=== PATIENT | male | born 1960 | race Caucasian/White ===

== ENCOUNTER 2018-11-08 16:13 | Inpatient (IN) | payer OTHER, SELFPAY ==
[2018-11-08 16:19] VITALS: BP 111/75; PULSE 75; RESP 20; TEMP 36.9; O2SAT 91
--- NOTE | 2018-11-08 16:27 | NURSING ---
Pt arrived from [facility] @ 1614 via cart
[2018-11-08 16:51] VITALS: BMI 33.2
[2018-11-08 16:59] VITALS: BMI 33.2
[2018-11-08 18:19] VITALS: BP 111/75; PULSE 75
[2018-11-08] MEDS: Tamsulosin HCl 0.4 MG Capsule PO (18:19)
[2018-11-08] MEDS: Metoprolol Tartrate 25 MG Tablet 12.5 MG PO (18:19)
[2018-11-08] MEDS: Senna/Docusate Sodium 1 Tablet 2 TABLET PO (18:19)
--- NOTE | 2018-11-08 20:58 | PCM.HP.STD ---
Problem List (1) Acute respiratory failure Status: Acute (2) Influenza Status: Acute (3) Pneumonia Status: Acute (4) MRSA (methicillin resistant Staphylococcus aureus) infection Status: Acute (5) ARDS (adult respiratory distress syndrome) Status: Acute (6) Stage III pressure ulcer of sacral region Status: Acute (7) Stage III pressure ulcer of right buttock Status: Acute (8) New onset atrial fibrillation Status: Acute (9) Urinary retention Status: Acute (10) Benign prostatic hyperplasia Status: Chronic (11) Elevated PSA Status: Chronic (12) Obstructive sleep apnea Status: Chronic (13) Anxiety Status: Chronic History of Present Illness Date of Admission: 11/08/18 Chief Complaint: Here for rehabilitation, strengthening, prior to discharge home with spouse. The patient is a 58 year old Male with below past medical history here with followin09/27/2018 Admitted to [facility] for influenza. Transferred to [facility] for more intensive treatment. Diagnosed with influenza, pneumonia, adult respiratory distress syndrome, causing respiratory failure. Intubated, mechanically ventilated, unable to wean ventilator. 10/10/2018 Tracheostomy tube placement. 10/23/2018 Stage 3 sacral and right buttock ulcers debrided by wound physician. 11/05/2018 Tracheostomy decannulated. New onset atrial fibrillation resolved, now in sinus rhythm. MRSA respiratory infection treated with full course of Linezolid. Anxiety treated with home dose of Trazodone. Patient still anxious. 11/06/2018 BPH with urinary retention requiring indwelling nunn catheter. Tamsulosin 0.4MG added to Finasteride 5MG daily. Patient states Tamsulosin 0.4MG not helpful in the past. Admit to TCU with debility, here for rehabilitation, strengthening, prior to discharge home with spouse. Past Medical History Past Medical History (Chronic Problems): Chronic Problems Benign prostatic hyperplasia (Chronic) Elevated PSA (Chronic) Obstructive sleep apnea (Chronic) Anxiety (Chronic) Allergies vancomycin Allergy (Verified 11/08/18 16:43) Unknown Home Medications: Ambulatory Orders Medication Instructions Recorded Finasteride 5 mg PO DAILY 11/08/18 Heparin Injection 5,000 units SC Q8 11/08/18 Metoprolol Tartrate [Lopressor 12.5 mg PO BID 11/08/18 (Beta [place]o)] Sennosides/Docusate Sodium 2 tab PO BID 11/08/18 [Docusate Sodium-Senna Tablet] Tamsulosin HCl [Flomax] 0.4 mg PO DAILY@1730 11/08/18 traZODone [Desyrel] 50 mg PO QHS 11/08/18 Surgical History: rotator cuff repair, - - Tracheostomy, septum frontal sinuses. Psychiatric History: Anxiety Lives: Spouse/ Significant Other Smoking Status: Former smoker Tobacco Use: Non-smoker Alcohol: None Drugs: None - *Family History Maternal History Items: No pertinent history Paternal History Items: No pertinent history Review of Systems Constitutional: Denies: Chills, Fever, Weight Change HEENT: Denies: Head Aches, Sinus Congestion, Sinus Drainage Cardiovascular: Denies: Chest Pain, Palpitations Respiratory: Denies: Cough, Shortness of breath at rest, Sputum production Gastrointestinal: Denies: Abdominal Pain, Nausea, Vomiting Genitourinary: Denies: Dysuria Musculoskeletal: Denies: Joint Pain, Joint Tenderness Skin: Reports: Wounds. Denies: Rash Neurological: Denies: Numbness, Tingling, Focal weakness Psychiatric: Reports: Anxiety. Denies: Depression, Homicidal Ideations, Suicidal Ideations Hematologic/ Lymphatic: Denies: Easy Bruising, Easy Bleeding VTE Information - Inpt Only VTE Present on Admission: No VTE Mechan Device Prophylaxis: Knee High KILO Hose VTE Pharm Prophylaxis ordered?: Yes Patient Problems: Active and Suspected Problems Acute respiratory failure (Acute) Influenza (Acute) Pneumonia (Acute) MRSA (methicillin resistant Staphylococcus aureus) infection (Acute) ARDS (adult respiratory distress syndrome) (Acute) Stage III pressure ulcer of sacral region (Acute) Stage III pressure ulcer of right buttock (Acute) New onset atrial fibrillation (Acute) Urinary retention (Acute) - Physical Exam General: Alert, Oriented x3, Cooperative HEENT: Atraumatic, PERRLA, EOMI, Normocephalic Neck: Supple, No JVD, Negative Carotid Bruits Lungs: Clear to auscultation, Normal air movement Cardiovascular: Regular rate, No murmurs Abdomen: Bowel Sounds Present, Soft, Non Tender Extremities: No edema, Capillary Refill Less than 3 Seconds Skin: No rashes, Ulcer/ Wound - Stage 3 sacral ulcer, Stage 3 right buttock ulcer (wound nurse) Musculoskeletal: No Tenderness to Palpation of Joints or Extremities Neurological: Cranial nerves II-XII grossly intact Psych/Mental Status: Normal Affect, Appropriate Vital Signs Temp Pulse Resp BP Pulse Ox 98.5 F 75 20 H 111/75 91 11/08/18 16:19 11/08/18 18:19 11/08/18 16:19 11/08/18 18:19 11/08/18 16:19 Oxygen Delivery Method Room Air Weight: 120.65 kg Body Mass Index (BMI) 33.2 Intake and Output for Last 24 Hours 11/06/18 11/07/18 11/08/18 23:59 23:59 23:59 Intake Total 120 / 120 Balance 120 / 120 Assessment/Plan All Active Problems Acute respiratory failure (Acute) Influenza (Acute) Pneumonia (Acute) MRSA (methicillin resistant Staphylococcus aureus) infection (Acute) ARDS (adult respiratory distress syndrome) (Acute) Stage III pressure ulcer of sacral region (Acute) Stage III pressure ulcer of right buttock (Acute) New onset atrial fibrillation (Acute) Urinary retention (Acute) 58 year old male with below past medical history hospitalized for acute respiratory failure secondary to influenza pneumonia requiring mechanical ventilation subsequent tracheostomy, complicated by atrial fibrillation, MRSA sputum, pressure ulcers, BPH with urination, admitted to TCU with debility, here for rehabilitation, strengthening, prior to discharge home with spouse. Debility - PT/OT. Pain - Tylenol 1000MG Q6H PRN mild pain. Bowel - Miralax 17GM daily, Senna/colace 2 tablets BID, Dulcolax 10MG daily PRN. Pneumonia vaccination - Administer Prevnar 13 and/or Pneumovax 23 as necessary, up to date on flushot. DVT prophylaxis - Lovenox 40MG SC daily. Nutrition - Ensure 120ML 4x/day. BPH with urinary retention - Finasteride 5MG daily, Tamsulosin 0.4MG daily, indwelling nunn catheter, consult Dr. Edmondson. Elevated PSA - PSA 8.81 2 years ago, biopsy negative, now on Finasteride, repeat PSA in AM. Dysuria - check UA, C+S. Atrial fibrillation - normal sinus rhythm, Metoprolol 12.5MG twice daily, anticoagulation not indicated. Insomnia - Trazodone 50MG QHS. Anxiety - Consider SSRI to help with symptoms. MRSA sputum - resolved with full course of Linezolid. Stage 3 sacral, Stage 3 right buttock pressure ulcers - consult wound nurse. Obstructive sleep apnea - CPAP at night.
--- NOTE | 2018-11-08 21:01 | HP.PCM_ITS ---
Problem List (1) Acute respiratory failure Status: Acute (2) Influenza Status: Acute (3) Pneumonia Status: Acute (4) MRSA (methicillin resistant Staphylococcus aureus) infection Status: Acute (5) ARDS (adult respiratory distress syndrome) Status: Acute (6) Stage III pressure ulcer of sacral region Status: Acute (7) Stage III pressure ulcer of right buttock Status: Acute (8) New onset atrial fibrillation Status: Acute (9) Urinary retention Status: Acute (10) Benign prostatic hyperplasia Status: Chronic (11) Elevated PSA Status: Chronic (12) Obstructive sleep apnea Status: Chronic (13) Anxiety Status: Chronic History of Present Illness Date of Admission: 11/08/18 Chief Complaint: Here for rehabilitation, strengthening, prior to discharge home with spouse. The patient is a 58 year old Male with below past medical history here with followin09/27/2018 Admitted to [facility] for influenza. Transferred to [facility] for more intensive treatment. Diagnosed with influenza, pneumonia, adult respiratory distress syndrome, causing respiratory failure. Intubated, mechanically ventilated, unable to wean ventilator. 10/10/2018 Tracheostomy tube placement. 10/23/2018 Stage 3 sacral and right buttock ulcers debrided by wound physician. 11/05/2018 Tracheostomy decannulated. New onset atrial fibrillation resolved, now in sinus rhythm. MRSA respiratory infection treated with full course of Linezolid. Anxiety treated with home dose of Trazodone. Patient still anxious. 11/06/2018 BPH with urinary retention requiring indwelling nunn catheter. Tamsulosin 0.4MG added to Finasteride 5MG daily. Patient states Tamsulosin 0.4MG not helpful in the past. Admit to TCU with debility, here for rehabilitation, strengthening, prior to discharge home with spouse. Past Medical History Past Medical History (Chronic Problems): Chronic Problems Benign prostatic hyperplasia (Chronic) Elevated PSA (Chronic) Obstructive sleep apnea (Chronic) Anxiety (Chronic) Allergies vancomycin Allergy (Verified 11/08/18 16:43) Unknown Home Medications: Ambulatory Orders Medication Instructions Recorded Finasteride 5 mg PO DAILY 11/08/18 Heparin Injection 5,000 units SC Q8 11/08/18 Metoprolol Tartrate [Lopressor 12.5 mg PO BID 11/08/18 ([place]eta [place])] Sennosides/Docusate Sodium 2 tab PO BID 11/08/18 [Docusate Sodium-Senna Tablet] Tamsulosin HCl [Flomax] 0.4 mg PO DAILY@1730 11/08/18 traZODone [Desyrel] 50 mg PO QHS 11/08/18 Surgical History: rotator cuff repair, - - Tracheostomy, septum frontal sinuses. Psychiatric History: Anxiety Lives: Spouse/ Significant Other Smoking Status: Former smoker Tobacco Use: Non-smoker Alcohol: None Drugs: None - *Family History Maternal History Items: No pertinent history Paternal History Items: No pertinent history Review of Systems Constitutional: Denies: Chills, Fever, Weight Change HEENT: Denies: Head Aches, Sinus Congestion, Sinus Drainage Cardiovascular: Denies: Chest Pain, Palpitations Respiratory: Denies: Cough, Shortness of breath at rest, Sputum production Gastrointestinal: Denies: Abdominal Pain, Nausea, Vomiting Genitourinary: Denies: Dysuria Musculoskeletal: Denies: Joint Pain, Joint Tenderness Skin: Reports: Wounds. Denies: Rash Neurological: Denies: Numbness, Tingling, Focal weakness Psychiatric: Reports: Anxiety. Denies: Depression, Homicidal Ideations, Suicidal Ideations Hematologic/ Lymphatic: Denies: Easy Bruising, Easy Bleeding VTE Information - Inpt Only VTE Present on Admission: No VTE Mechan Device Prophylaxis: Knee High KILO Hose VTE Pharm Prophylaxis ordered?: Yes Patient Problems: Active and Suspected Problems Acute respiratory failure (Acute) Influenza (Acute) Pneumonia (Acute) MRSA (methicillin resistant Staphylococcus aureus) infection (Acute) ARDS (adult respiratory distress syndrome) (Acute) Stage III pressure ulcer of sacral region (Acute) Stage III pressure ulcer of right buttock (Acute) New onset atrial fibrillation (Acute) Urinary retention (Acute) - Physical Exam General: Alert, Oriented x3, Cooperative HEENT: Atraumatic, PERRLA, EOMI, Normocephalic Neck: Supple, No JVD, Negative Carotid Bruits Lungs: Clear to auscultation, Normal air movement Cardiovascular: Regular rate, No murmurs Abdomen: Bowel Sounds Present, Soft, Non Tender Extremities: No edema, Capillary Refill Less than 3 Seconds Skin: No rashes, Ulcer/ Wound - Stage 3 sacral ulcer, Stage 3 right buttock ulcer (wound nurse) Musculoskeletal: No Tenderness to Palpation of Joints or Extremities Neurological: Cranial nerves II-XII grossly intact Psych/Mental Status: Normal Affect, Appropriate Vital Signs Temp Pulse Resp BP Pulse Ox 98.5 F 75 20 H 111/75 91 11/08/18 16:19 11/08/18 18:19 11/08/18 16:19 11/08/18 18:19 11/08/18 16:19 Oxygen Delivery Method Room Air Weight: 120.65 kg Body Mass Index (BMI) 33.2 Intake and Output for Last 24 Hours 11/06/18 11/07/18 11/08/18 23:59 23:59 23:59 Intake Total 120 / 120 Balance 120 / 120 Assessment/Plan All Active Problems Acute respiratory failure (Acute) Influenza (Acute) Pneumonia (Acute) MRSA (methicillin resistant Staphylococcus aureus) infection (Acute) ARDS (adult respiratory distress syndrome) (Acute) Stage III pressure ulcer of sacral region (Acute) Stage III pressure ulcer of right buttock (Acute) New onset atrial fibrillation (Acute) Urinary retention (Acute) 58 year old male with below past medical history hospitalized for acute respiratory failure secondary to influenza pneumonia requiring mechanical ventilation subsequent tracheostomy, complicated by atrial fibrillation, MRSA sputum, pressure ulcers, BPH with urination, admitted to TCU with debility, here for rehabilitation, strengthening, prior to discharge home with spouse. * Debility - PT/OT. * Pain - Tylenol 1000MG Q6H PRN mild pain. * Bowel - Miralax 17GM daily, Senna/colace 2 tablets BID, Dulcolax 10MG daily PRN. * Pneumonia vaccination - Administer Prevnar 13 and/or Pneumovax 23 as necessary, up to date on flushot. * DVT prophylaxis - Lovenox 40MG SC daily. * Nutrition - Ensure 120ML 4x/day. * BPH with urinary retention - Finasteride 5MG daily, Tamsulosin 0.4MG daily, indwelling nunn catheter, consult Dr. Edmondson. * Elevated PSA - PSA 8.81 2 years ago, biopsy negative, now on Finasteride, repeat PSA in AM. * Dysuria - check UA, C+S. * Atrial fibrillation - normal sinus rhythm, Metoprolol 12.5MG twice daily, anticoagulation not indicated. * Insomnia - Trazodone 50MG QHS. * Anxiety - Consider SSRI to help with symptoms. * MRSA sputum - resolved with full course of Linezolid. * Stage 3 sacral, Stage 3 right buttock pressure ulcers - consult wound nurse. * Obstructive sleep apnea - CPAP at night.
[2018-11-08] MEDS: Heparin Injection (Vial) 5,000 UNIT/ML VIAL 5000 UNIT SC (21:45)
[2018-11-08] MEDS: traZODone 50 MG Tablet PO (21:46)
--- NOTE | 2018-11-08 22:33 | NURSING ---
Pt complaint of burning with urination. Sediment noted in nunn bag with a minimal amount of blood. Foul odor noted to urine. Pt states he informed staff at other hospital but was told to drink more cranberry juice. Dr. Olson updated. Order for UA and C&S.
[2018-11-08 23:06] LABS: Mucous, Urine 0 SEEN /hpf (<or=2+); Squamous Epithelial Cells - UA 0 SEEN /hpf (0-5)
[2018-11-08 23:08] LABS: Color, Urine Yellow (Yellow); Glucose, Dipstick Normal (Normal); Ketone-Dipstick 5 mg/dl (Negative); Leukocyte Esterase-Dipstick 500 /ul (Negative); Nitrite-Dipstick Positive (Negative); Occult Blood-Urine 250 /ul (Negative); Protein-Dipstick 100 mg/dl (Negative); Specific Gravity, Urine 1.025 (1.002-1.030); Urine Bilirubin Dipstick Negative (Negative); Urine Clarity Cloudy (Clear); Urine Urobilinogen Normal (Normal)
[2018-11-08 23:16] LABS: White Blood Cells >100 SEEN /hpf (0-5)
[2018-11-08 23:17] LABS: Red Blood Cells-Urine 10-25 SEEN /hpf (0-5)
[2018-11-08 23:18] LABS: Bacteria RARE /hpf (None Seen)
--- NOTE | 2018-11-09 03:40 | NURSING ---
Pt remains in contact/droplet this shift for MRSA respiratory infection. All care provided in room.
[2018-11-09 08:24] LABS: Absolute Lymphocyte Count 1.59 X10^3/ul (0.83-4.51); Absolute Neutrophil Count 9.3 X10^3/uL (2.0-7.7); Basophil# 0.08 X10^3/uL; Basophil% 0.6 % (0-1); Eosinophils% 4.7 % (0-5); Hematocrit 35.8 % (40-54); Lymphocyte # 1.59 X10^3/ul (4.0); Lymphocyte % 12.6 % (19-41); Mean Corp Hgb Conc 33.5 g/gl (32-36); Mean Corpuscular Hgb 26.3 pg (27.0-32.0); Mean Corpuscular Volume 78.5 fL (80-94); Monocyte# 0.99 X10^3/uL; Monocyte% 7.8 % (0-10); Neutrophil # 9.34 X10^3/uL (2.7-7.7); Neutrophil % 73.9 % (47-70); Platelet Count 321 K/mm3 (150-450); RBC Distribution Width CV 25.5 % (11.6-14.6); RBC Distribution Width SD 66.6 fl (35.1-43.9); Red Blood Count 4.56 M/mm3 (4.6-6.2); White Blood Count 12.7 K/mm3 (4.4-11.0)
[2018-11-09 08:25] LABS: Differential Indicated SCAN CRITERIA MET; POSITIVE COUNT NO; POSITIVE DIFFERENTIAL NO; POSITIVE MORPHOLOGY YES
--- NOTE | 2018-11-09 08:39 | NURSING ---
Dr. Olson reviewed UA, NO for ceftin 500mg PO [id number].
[2018-11-09 08:43] LABS: Anion Gap 7 (5-15); BUN 14 mg/dL (7-18); BUN/Creat Ratio 21.4 RATIO (10-20); Chloride 105 mmol/L (98-107); Creatinine, Serum 0.66 mg/dL (0.70-1.30); EST Glomerular Filtration Rate 132 mL/min (>60); Est Glom Filt Rate - Afr Amer 160 mL/min (>60); Estimated Creatinine Clearance 144.03 ml/min; Glucose 105 mg/dL (74-106); PSA,Total- Diagnostic 4.08 ng/mL (0.0-4.0); Potassium 4.2 mmol/L (3.5-5.1); Sodium Level 135 mmol/L (136-145)
[2018-11-09 08:46] LABS: Anisocytosis 2+
[2018-11-09 08:47] LABS: Hypochromasia 2+; Polychromasia RARE
[2018-11-09 08:48] LABS: Macrocytosis 1+; Microcytosis 1+
[2018-11-09] MEDS: Senna/Docusate Sodium 1 Tablet 2 TABLET PO ×2 (09:24→17:42)
[2018-11-09] MEDS: Polyethylene Glycol 3350 17 GM PACKET PO (09:24)
[2018-11-09] MEDS: Finasteride 5 MG Tablet PO (09:25)
[2018-11-09] MEDS: Enoxaparin 40 MG/0.4 ML Syringe SC (09:25)
[2018-11-09] MEDS: CEFUROXIME AXETIL 250 MG TABLET 500 MG PO ×2 (09:26→17:42)
[2018-11-09 10:00] VITALS: PULSE 68
[2018-11-09] MEDS: Metoprolol Tartrate 25 MG Tablet 12.5 MG PO ×2 (10:00→17:42)
--- NOTE | 2018-11-09 11:45 | NURSING ---
Pt very anxious this morning, states he just feels overwhelmed by everything that has happened to him Very restless and unable to carry on conversation without having to stop taking deep breaths to relax. Very anxious about issue with bladder and prostate. Patient reassured. Dr. Olson notified, NO for paroxetine 10mg PO qHS, ativan 0.5mg po x1 now and then ativan 0.5mg PO [id number] PRN for anxiety. Notify Dr. Olson if ativan dose seems too sedating for patient.
--- NOTE | 2018-11-09 12:25 | RAD_ITS ---
STUDY: X-RAY CHEST REASON FOR EXAM: Male, 58 years old. Cough TECHNIQUE: Single AP portable view of the chest. COMPARISON: None. FINDINGS: Ill-defined airspace opacities are seen in the right lower lobe and left lower lobe suggesting bilateral pneumonia. There is no demonstrated pleural abnormality. Normal size heart. Normal mediastinum and kp. Normal visualized pulmonary arteries. Normal visualized aortic arch and descending thoracic aorta. Normal visualized thoracic spine. There is degenerative osteoarthritis of the bilateral shoulders. There is no demonstrated abnormality of the visualized soft tissue structures of the upper abdomen. RAD/Chest 1 View (Portable) IMPRESSION: Bilateral pneumonia. Electronically Signed: Anita Arce, at 16:14 EDT Tel , Service support ,
[2018-11-09] MEDS: Acetaminophen 500 MG Tablet 1000 MG PO (13:11)
[2018-11-09] MEDS: LORazepam 0.5 MG Tablet PO ×2 (13:13→21:45)
--- NOTE | 2018-11-09 14:10 | NURSING ---
Pt refused TB test and Quant Gold test, has a fear of needles. Denies any night sweats, fevers, chest pain, hemopytsis, lymph node swelling, malaise, weight loss or SOB. Per Dr. Olson and nursing informatics analyst, north to do a CXR to r/o TB.
--- NOTE | 2018-11-09 14:12 | PCM.PN.RX ---
<Kevin Christopher D - Last Filed: 11/09/18 14:12> Progress Note - Pharmacy Subjective: TCU Admission Objective: Allergies vancomycin Allergy (Verified 11/08/18 16:43) Unknown Current Medications Generic Name Dose Route Start Last Admin Trade Name Freq PRN Reason Stop Dose Admin Acetaminophen 1,000 mg 11/08/18 22:38 11/09/18 13:11 Tylenol PO 1,000 mg Q6H PRN PRN Administration MILD PAIN (1-3/10) Bisacodyl 10 mg 11/08/18 22:39 Dulcolax PO DAILY PRN Constipation Cefuroxime Axetil 500 mg 11/09/18 18:00 Ceftin PO 11/16/18 18:01 Q12 [facility] Enoxaparin Sodium 40 mg 11/09/18 07:00 11/09/18 09:25 Lovenox SC 40 mg DAILY@0600 [facility] Administration Finasteride 5 mg 11/09/18 08:00 11/09/18 09:25 Proscar PO 5 mg DAILYCM [facility] Administration Lorazepam 0.5 mg 11/09/18 19:40 Ativan PO Q8H PRN PRN ANXIETY Metoprolol Tartrate 12.5 mg 11/09/18 08:00 11/09/18 10:00 Lopressor ([place]eta [place]) PO 12.5 mg BID@0800,1800 [facility] Administration Multi-Ingredient Cream 1 applic 11/09/18 22:00 [facility] Nutritional Formula (Lactose Free) 120 ml 11/09/18 08:00 11/09/18 11:17 Ensure Enlive PO 120 ml 0800,1200,1700,2200 [facility] Administration Paroxetine HCl 10 mg 11/09/18 22:00 Paxil PO QHS [facility] Polyethylene Glycol 17 gm 11/09/18 08:00 11/09/18 09:24 Miralax PO 17 gm DAILY@0800 [facility] Administration Senna/Docusate Sodium 2 tablet 11/09/18 08:00 11/09/18 09:24 Senokot-S, Nory-Colace PO 2 tablet BID@0800,1800 [facility] Administration Tamsulosin HCl 0.4 mg 11/08/18 17:30 11/08/18 18:19 Flomax PO 0.4 mg DAILY@1730 [facility] Administration Trazodone HCl 50 mg 11/08/18 22:00 11/08/18 21:46 Desyrel PO 50 mg QHS [facility] Administration Tuberculin PPD 5 tu 11/16/18 10:00 Tubersol, Aplisol, Ppd ID 11/16/18 10:01 X1 ONE Problem List Acute respiratory failure (Acute) Influenza (Acute) Pneumonia (Acute) MRSA (methicillin resistant Staphylococcus aureus) infection (Acute) ARDS (adult respiratory distress syndrome) (Acute) Stage III pressure ulcer of sacral region (Acute) Stage III pressure ulcer of right buttock (Acute) New onset atrial fibrillation (Acute) Urinary retention (Acute) Benign prostatic hyperplasia (Chronic) Elevated PSA (Chronic) Obstructive sleep apnea (Chronic) Anxiety (Chronic) Vital Signs Temp Pulse Resp BP Pulse Ox 98.5 F 68 20 H 111/75 91 11/08/18 16:19 11/09/18 10:00 11/08/18 16:19 11/08/18 18:19 11/08/18 16:19 Oxygen Delivery Method Room Air Weight: 120.65 kg Body Mass Index (BMI) 33.2 Sodium 135 mmol/L (136-145) L 11/09/18 08:04 Potassium 4.2 mmol/L (3.5-5.1) 11/09/18 08:04 Chloride 105 mmol/L (98-107) 11/09/18 08:04 Carbon Dioxide 23.0 mmol/L (21.0-32.0) 11/09/18 08:04 Anion Gap 7 (5-15) 11/09/18 08:04 BUN 14 mg/dL (7-18) 11/09/18 08:04 Creatinine 0.66 mg/dL (0.70-1.30) L 11/09/18 08:04 Est GFR (MDRD) Af Amer 160 mL/min (>60) 11/09/18 08:04 Est GFR (MDRD) Non-Af 132 mL/min (>60) 11/09/18 08:04 BUN/Creatinine Ratio 21.4 RATIO (10-20) H 11/09/18 08:04 Glucose 105 mg/dL (74-106) 11/09/18 08:04 Assessment/Plan: 1) Pain APAP for mild pain. Continue to monitor daily pain scores, prn medication use. 2) DVT PPx Enoxaparin daily. Continue to monitor for bleeding/clot. 3) AFib Metoprolol. Continue to monitor BP/HR. 4) ID Cefuroxime. Continue to monitor s/s infection. 5) BPH Tamsulosin, finasteride. Continue to monitor for symptoms. Psychotropic Medications: 6) Depression/Insomnia/Anxiety Trazodone and paroxetine at HS, lorazepam prn. Continue to monitor prn medication use, for depression/anxiety, insomnia. Unnecessary Medications: None Bowel Regimen: 7) Senna/s, PEG, prn bisacodyl. Continue to monitor prn medication use, for constipation/diarrhea. Date of Note:: 11/09/18 - Provider Comments Provider responsibility: Provider responsible to enter orders to implement recommendations <Teodoro Olson Chi - Last Filed: 11/09/18 16:49> Progress Note - Pharmacy Subjective: [] Objective: Allergies vancomycin Allergy (Verified 11/08/18 16:43) Unknown Current Medications Generic Name Dose Route Start Last Admin Trade Name Freq PRN Reason Stop Dose Admin Acetaminophen 1,000 mg 11/08/18 22:38 11/09/18 13:11 Tylenol PO 1,000 mg Q6H PRN PRN Administration MILD PAIN (1-3/10) Bisacodyl 10 mg 11/08/18 22:39 Dulcolax PO DAILY PRN Constipation Cefuroxime Axetil 500 mg 11/09/18 18:00 Ceftin PO 11/16/18 18:01 Q12 [facility] Enoxaparin Sodium 40 mg 11/09/18 07:00 11/09/18 09:25 Lovenox SC 40 mg DAILY@0600 [facility] Administration Finasteride 5 mg 11/09/18 08:00 11/09/18 09:25 Proscar PO 5 mg DAILYCM [facility] Administration Lorazepam 0.5 mg 11/09/18 19:40 Ativan PO Q8H PRN PRN ANXIETY Metoprolol Tartrate 12.5 mg 11/09/18 08:00 11/09/18 10:00 Lopressor ([place]) PO 12.5 mg BID@0800,1800 [facility] Administration Multi-Ingredient Cream 1 applic 11/09/18 22:00 Eucerin TOPICAL QHS [facility] Protocol Nutritional Formula (Lactose Free) 120 ml 11/09/18 08:00 11/09/18 11:17 Ensure Enlive PO 120 ml 0800,1200,1700,2200 [facility] Administration Paroxetine HCl 10 mg 11/09/18 22:00 Paxil PO QHS [facility] Polyethylene Glycol 17 gm 11/09/18 08:00 11/09/18 09:24 Miralax PO 17 gm DAILY@0800 [facility] Administration Senna/Docusate Sodium 2 tablet 11/09/18 08:00 11/09/18 09:24 Senokot-S, Nory-Colace PO 2 tablet BID@0800,1800 [facility] Administration Tamsulosin HCl 0.4 mg 11/08/18 17:30 11/08/18 18:19 Flomax PO 0.4 mg DAILY@1730 [facility] Administration Trazodone HCl 50 mg 11/08/18 22:00 11/08/18 21:46 Desyrel PO 50 mg QHS [facility] Administration Tuberculin PPD 5 tu 11/16/18 10:00 Tubersol, Aplisol, Ppd ID 11/16/18 10:01 X1 ONE Problem List Acute respiratory failure (Acute) Influenza (Acute) Pneumonia (Acute) MRSA (methicillin resistant Staphylococcus aureus) infection (Acute) ARDS (adult respiratory distress syndrome) (Acute) Stage III pressure ulcer of sacral region (Acute) Stage III pressure ulcer of right buttock (Acute) New onset atrial fibrillation (Acute) Urinary retention (Acute) Benign prostatic hyperplasia (Chronic) Elevated PSA (Chronic) Obstructive sleep apnea (Chronic) Anxiety (Chronic) Vital Signs Temp Pulse Resp BP Pulse Ox 99.2 F H 73 18 142/76 H 91 11/09/18 15:13 11/09/18 15:13 11/09/18 15:13 11/09/18 15:13 11/09/18 15:13 Oxygen Delivery Method Room Air Weight: 120.65 kg Body Mass Index (BMI) 33.2 Sodium 135 mmol/L (136-145) L 11/09/18 08:04 Potassium 4.2 mmol/L (3.5-5.1) 11/09/18 08:04 Chloride 105 mmol/L (98-107) 11/09/18 08:04 Carbon Dioxide 23.0 mmol/L (21.0-32.0) 11/09/18 08:04 Anion Gap 7 (5-15) 11/09/18 08:04 BUN 14 mg/dL (7-18) 11/09/18 08:04 Creatinine 0.66 mg/dL (0.70-1.30) L 11/09/18 08:04 Est GFR (MDRD) Af Amer 160 mL/min (>60) 11/09/18 08:04 Est GFR (MDRD) Non-Af 132 mL/min (>60) 11/09/18 08:04 BUN/Creatinine Ratio 21.4 RATIO (10-20) H 11/09/18 08:04 Glucose 105 mg/dL (74-106) 11/09/18 08:04 Assessment/Plan: Psychotropic Medications: Unnecessary Medications: Bowel Regimen: - Provider Comments Provider responsibility: Provider responsible to enter orders to implement recommendations Provider Comments to Recommendations by Pharmacy: Agree
--- NOTE | 2018-11-09 14:19 | PHA.CONS_ITS ---
<Kevin Christopher D - Last Filed: 11/09/18 14:12> Progress Note - Pharmacy Subjective: TCU Admission Objective: Allergies vancomycin Allergy (Verified 11/08/18 16:43) Unknown Current Medications Generic Name Dose Route Start Last Admin Trade Name Freq PRN Reason Stop Dose Admin Acetaminophen 1,000 mg 11/08/18 22:38 11/09/18 13:11 Tylenol PO 1,000 mg Q6H PRN PRN Administration MILD PAIN (1-3/10) Bisacodyl 10 mg 11/08/18 22:39 Dulcolax PO DAILY PRN Constipation Cefuroxime Axetil 500 mg 11/09/18 18:00 Ceftin PO 11/16/18 18:01 Q12 [facility] Enoxaparin Sodium 40 mg 11/09/18 07:00 11/09/18 09:25 Lovenox SC 40 mg DAILY@0600 [facility] Administration Finasteride 5 mg 11/09/18 08:00 11/09/18 09:25 Proscar PO 5 mg DAILYCM [facility] Administration Lorazepam 0.5 mg 11/09/18 19:40 Ativan PO Q8H PRN PRN ANXIETY Metoprolol Tartrate 12.5 mg 11/09/18 08:00 11/09/18 10:00 Lopressor ([place]) PO 12.5 mg BID@0800,1800 [facility] Administration Multi-Ingredient Cream 1 applic 11/09/18 22:00 [facility] Protocol Nutritional Formula (Lactose Free) 120 ml 11/09/18 08:00 11/09/18 11:17 Ensure Enlive PO 120 ml 0800,1200,1700,2200 [facility] Administration Paroxetine HCl 10 mg 11/09/18 22:00 Paxil PO QHS [facility] Polyethylene Glycol 17 gm 11/09/18 08:00 11/09/18 09:24 Miralax PO 17 gm DAILY@0800 [facility] Administration Senna/Docusate Sodium 2 tablet 11/09/18 08:00 11/09/18 09:24 Senokot-S, Nory-Colace PO 2 tablet BID@0800,1800 [facility] Administration Tamsulosin HCl 0.4 mg 11/08/18 17:30 11/08/18 18:19 Flomax PO 0.4 mg DAILY@1730 [facility] Administration Trazodone HCl 50 mg 11/08/18 22:00 11/08/18 21:46 Desyrel PO 50 mg QHS [facility] Administration Tuberculin PPD 5 tu 11/16/18 10:00 Tubersol, Aplisol, Ppd ID 11/16/18 10:01 X1 ONE Problem List Acute respiratory failure (Acute) Influenza (Acute) Pneumonia (Acute) MRSA (methicillin resistant Staphylococcus aureus) infection (Acute) ARDS (adult respiratory distress syndrome) (Acute) Stage III pressure ulcer of sacral region (Acute) Stage III pressure ulcer of right buttock (Acute) New onset atrial fibrillation (Acute) Urinary retention (Acute) Benign prostatic hyperplasia (Chronic) Elevated PSA (Chronic) Obstructive sleep apnea (Chronic) Anxiety (Chronic) Vital Signs Temp Pulse Resp BP Pulse Ox 98.5 F 68 20 H 111/75 91 11/08/18 16:19 11/09/18 10:00 11/08/18 16:19 11/08/18 18:19 11/08/18 16:19 Oxygen Delivery Method Room Air Weight: 120.65 kg Body Mass Index (BMI) 33.2 Sodium 135 mmol/L (136-145) L 11/09/18 08:04 Potassium 4.2 mmol/L (3.5-5.1) 11/09/18 08:04 Chloride 105 mmol/L (98-107) 11/09/18 08:04 Carbon Dioxide 23.0 mmol/L (21.0-32.0) 11/09/18 08:04 Anion Gap 7 (5-15) 11/09/18 08:04 BUN 14 mg/dL (7-18) 11/09/18 08:04 Creatinine 0.66 mg/dL (0.70-1.30) L 11/09/18 08:04 Est GFR (MDRD) Af Amer 160 mL/min (>60) 11/09/18 08:04 Est GFR (MDRD) Non-Af 132 mL/min (>60) 11/09/18 08:04 BUN/Creatinine Ratio 21.4 RATIO (10-20) H 11/09/18 08:04 Glucose 105 mg/dL (74-106) 11/09/18 08:04 Assessment/Plan: 1) Pain APAP for mild pain. Continue to monitor daily pain scores, prn medication use. 2) DVT PPx Enoxaparin daily. Continue to monitor for bleeding/clot. 3) AFib Metoprolol. Continue to monitor BP/HR. 4) ID Cefuroxime. Continue to monitor s/s infection. 5) BPH Tamsulosin, finasteride. Continue to monitor for symptoms. Psychotropic Medications: 6) Depression/Insomnia/Anxiety Trazodone and paroxetine at HS, lorazepam prn. Continue to monitor prn medication use, for depression/anxiety, insomnia. Unnecessary Medications: None Bowel Regimen: 7) Senna/s, PEG, prn bisacodyl. Continue to monitor prn medication use, for constipation/diarrhea. Date of Note:: 11/09/18 - Provider Comments Provider responsibility: Provider responsible to enter orders to implement recommendations <Teodoro Olson Chi - Last Filed: 11/09/18 16:49> Progress Note - Pharmacy Subjective: [] Objective: Allergies vancomycin Allergy (Verified 11/08/18 16:43) Unknown Current Medications Generic Name Dose Route Start Last Admin Trade Name Freq PRN Reason Stop Dose Admin Acetaminophen 1,000 mg 11/08/18 22:38 11/09/18 13:11 Tylenol PO 1,000 mg Q6H PRN PRN Administration MILD PAIN (1-3/10) Bisacodyl 10 mg 11/08/18 22:39 Dulcolax PO DAILY PRN Constipation Cefuroxime Axetil 500 mg 11/09/18 18:00 Ceftin PO 11/16/18 18:01 Q12 [facility] Enoxaparin Sodium 40 mg 11/09/18 07:00 11/09/18 09:25 Lovenox SC 40 mg DAILY@0600 [facility] Administration Finasteride 5 mg 11/09/18 08:00 11/09/18 09:25 Proscar PO 5 mg DAILYCM [facility] Administration Lorazepam 0.5 mg 11/09/18 19:40 Ativan PO Q8H PRN PRN ANXIETY Metoprolol Tartrate 12.5 mg 11/09/18 08:00 11/09/18 10:00 Lopressor ([place]) PO 12.5 mg BID@0800,1800 [facility] Administration Multi-Ingredient Cream 1 applic 11/09/18 22:00 Eucerin TOPICAL QHS [facility] Protocol Nutritional Formula (Lactose Free) 120 ml 11/09/18 08:00 11/09/18 11:17 Ensure Enlive PO 120 ml 0800,1200,1700,2200 [facility] Administration Paroxetine HCl 10 mg 11/09/18 22:00 Paxil PO QHS [facility] Polyethylene Glycol 17 gm 11/09/18 08:00 11/09/18 09:24 Miralax PO 17 gm DAILY@0800 [facility] Administration Senna/Docusate Sodium 2 tablet 11/09/18 08:00 11/09/18 09:24 Senokot-S, Nory-Colace PO 2 tablet BID@0800,1800 [facility] Administration Tamsulosin HCl 0.4 mg 11/08/18 17:30 11/08/18 18:19 Flomax PO 0.4 mg DAILY@1730 [facility] Administration Trazodone HCl 50 mg 11/08/18 22:00 11/08/18 21:46 Desyrel PO 50 mg QHS [facility] Administration Tuberculin PPD 5 tu 11/16/18 10:00 Tubersol, Aplisol, Ppd ID 11/16/18 10:01 X1 ONE Problem List Acute respiratory failure (Acute) Influenza (Acute) Pneumonia (Acute) MRSA (methicillin resistant Staphylococcus aureus) infection (Acute) ARDS (adult respiratory distress syndrome) (Acute) Stage III pressure ulcer of sacral region (Acute) Stage III pressure ulcer of right buttock (Acute) New onset atrial fibrillation (Acute) Urinary retention (Acute) Benign prostatic hyperplasia (Chronic) Elevated PSA (Chronic) Obstructive sleep apnea (Chronic) Anxiety (Chronic) Vital Signs Temp Pulse Resp BP Pulse Ox 99.2 F H 73 18 142/76 H 91 11/09/18 15:13 11/09/18 15:13 11/09/18 15:13 11/09/18 15:13 11/09/18 15:13 Oxygen Delivery Method Room Air Weight: 120.65 kg Body Mass Index (BMI) 33.2 Sodium 135 mmol/L (136-145) L 11/09/18 08:04 Potassium 4.2 mmol/L (3.5-5.1) 11/09/18 08:04 Chloride 105 mmol/L (98-107) 11/09/18 08:04 Carbon Dioxide 23.0 mmol/L (21.0-32.0) 11/09/18 08:04 Anion Gap 7 (5-15) 11/09/18 08:04 BUN 14 mg/dL (7-18) 11/09/18 08:04 Creatinine 0.66 mg/dL (0.70-1.30) L 11/09/18 08:04 Est GFR (MDRD) Af Amer 160 mL/min (>60) 11/09/18 08:04 Est GFR (MDRD) Non-Af 132 mL/min (>60) 11/09/18 08:04 BUN/Creatinine Ratio 21.4 RATIO (10-20) H 11/09/18 08:04 Glucose 105 mg/dL (74-106) 11/09/18 08:04 Assessment/Plan: Psychotropic Medications: Unnecessary Medications: Bowel Regimen: - Provider Comments Provider responsibility: Provider responsible to enter orders to implement recommendations Provider Comments to Recommendations by Pharmacy: Agree
[2018-11-09 15:13] VITALS: BP 142/76; PULSE 73; RESP 18; TEMP 37.3; O2SAT 91
--- NOTE | 2018-11-09 15:30 | NURSING ---
wound photo: bienvenido cleft/buttocks
--- NOTE | 2018-11-09 16:53 | NURSING ---
Dr. Olson reviewed CXR, NO for adamidamy.
[2018-11-09 17:42] VITALS: BP 142/76; PULSE 73
[2018-11-09] MEDS: Azithromycin 250 MG Tablet 500 MG PO (17:42)
[2018-11-09] MEDS: Tamsulosin HCl 0.4 MG Capsule PO (17:42)
[2018-11-09] MEDS: PARoxetine 10 MG Tablet PO (21:45)
[2018-11-09] MEDS: traZODone 50 MG Tablet PO (21:45)
--- NOTE | 2018-11-10 01:06 | NURSING ---
Pt remains in contact/droplet precautions this shift. All care provided in room.
[2018-11-10] MEDS: CEFUROXIME AXETIL 250 MG TABLET 500 MG PO ×2 (09:01→16:50)
[2018-11-10 09:02] VITALS: BP 128/80; PULSE 76
[2018-11-10] MEDS: Enoxaparin 40 MG/0.4 ML Syringe SC (09:02)
[2018-11-10] MEDS: Finasteride 5 MG Tablet PO (09:02)
[2018-11-10] MEDS: Metoprolol Tartrate 25 MG Tablet 12.5 MG PO ×2 (09:02→16:50)
[2018-11-10] MEDS: Polyethylene Glycol 3350 17 GM PACKET PO (09:02)
[2018-11-10] MEDS: Senna/Docusate Sodium 1 Tablet 2 TABLET PO ×2 (09:03→16:50)
--- NOTE | 2018-11-10 09:39 | CASEMGMT ---
Social Work Student social media marketing manager completed psychosocial assessment. Information reviewed and approved. CARROLL Rashid
--- NOTE | 2018-11-10 13:56 | PCM.TCUNOT ---
Subjective: Resident seen in room, lying in bed, I let him know his bilateral pneumonia persists, we are treating, he continues to have dysuria with indwelling nunn catheter, urine culture growing E. Coli, will treat. He is also very depressed, and anxious, will treat, he has PTSD from near experience with influenza A. Vitals/I&O's: Vital Signs Temp Pulse Resp BP Pulse Ox 99.2 F H 76 18 128/80 H 91 11/09/18 15:13 11/10/18 09:02 11/09/18 15:13 11/10/18 09:02 11/09/18 15:13 Oxygen Delivery Method Room Air Weight: 120.65 kg Body Mass Index (BMI) 33.2 Intake and Output for Last 24 Hours 11/08/18 11/09/18 11/10/18 23:59 23:59 23:59 Intake Total 120 / 120 600 / 600 720 / 720 Output Total 400 / 400 1400 / 1400 725 / 725 Balance -280 / -280 -800 / -800 -5 / -5 Microbiology Past 72 Hours 11/08/18 23:00 Urine Catheter - Nunn Urine Culture - Final Presumptive E. coli Past Medical History Past Medical History (Chronic Problems): Chronic Problems Benign prostatic hyperplasia (Chronic) Elevated PSA (Chronic) Obstructive sleep apnea (Chronic) Anxiety (Chronic) Allergies vancomycin Allergy (Verified 11/08/18 16:43) Unknown Home Medications: Ambulatory Orders Medication Instructions Recorded Finasteride 5 mg PO DAILY 11/08/18 Heparin Injection 5,000 units SC Q8 11/08/18 Metoprolol Tartrate [Lopressor 12.5 mg PO BID 11/08/18 ([place])] Sennosides/Docusate Sodium 2 tab PO BID 11/08/18 [Docusate Sodium-Senna Tablet] Tamsulosin HCl [Flomax] 0.4 mg PO DAILY@1730 11/08/18 traZODone [Desyrel] 50 mg PO QHS 11/08/18 Surgical History: rotator cuff repair, - - Tracheostomy, septum frontal sinuses. Psychiatric History: Anxiety Lives: Spouse/ Significant Other Smoking Status: Former smoker Tobacco Use: Non-smoker Alcohol: None Drugs: None - *Family History Maternal History Items: No pertinent history Paternal History Items: No pertinent history Capacity - Capacity Assessment Tool Can the patient make a choice & communicate that choice?: Yes Can the patient understand benefits, risks and alternatives?: Yes Can the patient make a logical, rational choice?: Yes Is the choice the patient makes consistent w/ their values?: Yes Is there an impending, emergent risk to the patient?: No Does the patient have an Advance Directive?: No Is there a Surrogate Available?: Yes i.e. HCPOA: Yes i.e. close relative (spouse, child, parent, sibling)?: Yes Review of Systems Constitutional: Denies: Chills, Fever, Weight Change HEENT: Denies: Head Aches, Sinus Congestion, Sinus Drainage Cardiovascular: Denies: Chest Pain, Palpitations Respiratory: Reports: Cough. Denies: Shortness of breath at rest, Sputum production Gastrointestinal: Denies: Abdominal Pain, Nausea, Vomiting Genitourinary: Denies: Dysuria Musculoskeletal: Denies: Joint Pain, Joint Tenderness Skin: Denies: Rash, Wounds Neurological: Denies: Numbness, Tingling, Focal weakness Psychiatric: Denies: Anxiety, Depression, Homicidal Ideations, Suicidal Ideations Hematologic/ Lymphatic: Denies: Easy Bruising, Easy Bleeding Patient Problems: Active and Suspected Problems Acute respiratory failure (Acute) Influenza (Acute) Pneumonia (Acute) MRSA (methicillin resistant Staphylococcus aureus) infection (Acute) ARDS (adult respiratory distress syndrome) (Acute) Stage III pressure ulcer of sacral region (Acute) Stage III pressure ulcer of right buttock (Acute) New onset atrial fibrillation (Acute) Urinary retention (Acute) - Physical Exam General: Alert, Oriented x3, Cooperative HEENT: Atraumatic, PERRLA, EOMI, Normocephalic Neck: Supple, No JVD, Negative Carotid Bruits Lungs: Normal air movement, - - bibasilar crackles. Cardiovascular: Regular rate, No murmurs Abdomen: Bowel Sounds Present, Soft, Non Tender Extremities: No edema, Capillary Refill Less than 3 Seconds Skin: No rashes, No breakdown Musculoskeletal: No Tenderness to Palpation of Joints or Extremities Neurological: Cranial nerves II-XII grossly intact Psych/Mental Status: Normal Affect, Appropriate Vital Signs Temp Pulse Resp BP Pulse Ox 99.2 F H 76 18 128/80 H 91 11/09/18 15:13 11/10/18 09:02 11/09/18 15:13 11/10/18 09:02 11/09/18 15:13 Oxygen Delivery Method Room Air Weight: 120.65 kg Body Mass Index (BMI) 33.2 Intake and Output for Last 24 Hours 11/08/18 11/09/18 11/10/18 23:59 23:59 23:59 Intake Total 120 / 120 600 / 600 720 / 720 Output Total 400 / 400 1400 / 1400 725 / 725 Balance -280 / -280 -800 / -800 -5 / -5 Microbiology Past 72 Hours 11/08/18 23:00 Urine Culture - Final Urine Catheter - Nunn Presumptive E. coli Assessment/Plan All Active Problems Acute respiratory failure (Acute) Influenza (Acute) Pneumonia (Acute) MRSA (methicillin resistant Staphylococcus aureus) infection (Acute) ARDS (adult respiratory distress syndrome) (Acute) Stage III pressure ulcer of sacral region (Acute) Stage III pressure ulcer of right buttock (Acute) New onset atrial fibrillation (Acute) Urinary retention (Acute) 58 year old male with below past medical history hospitalized for acute respiratory failure secondary to influenza pneumonia requiring mechanical ventilation subsequent tracheostomy, complicated by atrial fibrillation, MRSA sputum, pressure ulcers, BPH with urination, admitted to TCU with debility, here for rehabilitation, strengthening, prior to discharge home with spouse. Cough - order CXR, recommend incentive spirometer. Bibasilar pneumonia - Z-daisy. Dysuria - check UA, consistent with UTI. E. Coli UTI - Ceftin 500MG BID x 10 days. BPH - Finasteride 5MG, Tamsulosin 0.4MG daily. Urinary retention - indwelling nunn catheter, Dr. Edmondson consulted. Depression - Paroxetine 10MG QHS. Anxiety - Ativan 0.5MG Q8H PRN anxiety.
--- NOTE | 2018-11-10 14:02 | PN_ITS ---
Subjective: Resident seen in room, lying in bed, I let him know his bilateral pneumonia persists, we are treating, he continues to have dysuria with indwelling nunn catheter, urine culture growing E. Coli, will treat. He is also very depressed, and anxious, will treat, he has PTSD from near experience with influenza A. Vitals/I&O's: Vital Signs Temp Pulse Resp BP Pulse Ox 99.2 F H 76 18 128/80 H 91 11/09/18 15:13 11/10/18 09:02 11/09/18 15:13 11/10/18 09:02 11/09/18 15:13 Oxygen Delivery Method Room Air Weight: 120.65 kg Body Mass Index (BMI) 33.2 Intake and Output for Last 24 Hours 11/08/18 11/09/18 11/10/18 23:59 23:59 23:59 Intake Total 120 / 120 600 / 600 720 / 720 Output Total 400 / 400 1400 / 1400 725 / 725 Balance -280 / -280 -800 / -800 -5 / -5 Microbiology Past 72 Hours 11/08/18 23:00 Urine Catheter - Nunn Urine Culture - Final Presumptive E. coli Past Medical History Past Medical History (Chronic Problems): Chronic Problems Benign prostatic hyperplasia (Chronic) Elevated PSA (Chronic) Obstructive sleep apnea (Chronic) Anxiety (Chronic) Allergies vancomycin Allergy (Verified 11/08/18 16:43) Unknown Home Medications: Ambulatory Orders Medication Instructions Recorded Finasteride 5 mg PO DAILY 11/08/18 Heparin Injection 5,000 units SC Q8 11/08/18 Metoprolol Tartrate [Lopressor 12.5 mg PO BID 11/08/18 ([place])] Sennosides/Docusate Sodium 2 tab PO BID 11/08/18 [Docusate Sodium-Senna Tablet] Tamsulosin HCl [Flomax] 0.4 mg PO DAILY@1730 11/08/18 traZODone [Desyrel] 50 mg PO QHS 11/08/18 Surgical History: rotator cuff repair, - - Tracheostomy, septum frontal sinuses. Psychiatric History: Anxiety Lives: Spouse/ Significant Other Smoking Status: Former smoker Tobacco Use: Non-smoker Alcohol: None Drugs: None - *Family History Maternal History Items: No pertinent history Paternal History Items: No pertinent history Capacity - Capacity Assessment Tool Can the patient make a choice & communicate that choice?: Yes Can the patient understand benefits, risks and alternatives?: Yes Can the patient make a logical, rational choice?: Yes Is the choice the patient makes consistent w/ their values?: Yes Is there an impending, emergent risk to the patient?: No Does the patient have an Advance Directive?: No Is there a Surrogate Available?: Yes i.e. HCPOA: Yes i.e. close relative (spouse, child, parent, sibling)?: Yes Review of Systems Constitutional: Denies: Chills, Fever, Weight Change HEENT: Denies: Head Aches, Sinus Congestion, Sinus Drainage Cardiovascular: Denies: Chest Pain, Palpitations Respiratory: Reports: Cough. Denies: Shortness of breath at rest, Sputum production Gastrointestinal: Denies: Abdominal Pain, Nausea, Vomiting Genitourinary: Denies: Dysuria Musculoskeletal: Denies: Joint Pain, Joint Tenderness Skin: Denies: Rash, Wounds Neurological: Denies: Numbness, Tingling, Focal weakness Psychiatric: Denies: Anxiety, Depression, Homicidal Ideations, Suicidal Ideations Hematologic/ Lymphatic: Denies: Easy Bruising, Easy Bleeding Patient Problems: Active and Suspected Problems Acute respiratory failure (Acute) Influenza (Acute) Pneumonia (Acute) MRSA (methicillin resistant Staphylococcus aureus) infection (Acute) ARDS (adult respiratory distress syndrome) (Acute) Stage III pressure ulcer of sacral region (Acute) Stage III pressure ulcer of right buttock (Acute) New onset atrial fibrillation (Acute) Urinary retention (Acute) - Physical Exam General: Alert, Oriented x3, Cooperative HEENT: Atraumatic, PERRLA, EOMI, Normocephalic Neck: Supple, No JVD, Negative Carotid Bruits Lungs: Normal air movement, - - bibasilar crackles. Cardiovascular: Regular rate, No murmurs Abdomen: Bowel Sounds Present, Soft, Non Tender Extremities: No edema, Capillary Refill Less than 3 Seconds Skin: No rashes, No breakdown Musculoskeletal: No Tenderness to Palpation of Joints or Extremities Neurological: Cranial nerves II-XII grossly intact Psych/Mental Status: Normal Affect, Appropriate Vital Signs Temp Pulse Resp BP Pulse Ox 99.2 F H 76 18 128/80 H 91 11/09/18 15:13 11/10/18 09:02 11/09/18 15:13 11/10/18 09:02 11/09/18 15:13 Oxygen Delivery Method Room Air Weight: 120.65 kg Body Mass Index (BMI) 33.2 Intake and Output for Last 24 Hours 11/08/18 11/09/18 11/10/18 23:59 23:59 23:59 Intake Total 120 / 120 600 / 600 720 / 720 Output Total 400 / 400 1400 / 1400 725 / 725 Balance -280 / -280 -800 / -800 -5 / -5 Microbiology Past 72 Hours 11/08/18 23:00 Urine Culture - Final Urine Catheter - Nunn Presumptive E. coli Assessment/Plan All Active Problems Acute respiratory failure (Acute) Influenza (Acute) Pneumonia (Acute) MRSA (methicillin resistant Staphylococcus aureus) infection (Acute) ARDS (adult respiratory distress syndrome) (Acute) Stage III pressure ulcer of sacral region (Acute) Stage III pressure ulcer of right buttock (Acute) New onset atrial fibrillation (Acute) Urinary retention (Acute) 58 year old male with below past medical history hospitalized for acute respiratory failure secondary to influenza pneumonia requiring mechanical ventilation subsequent tracheostomy, complicated by atrial fibrillation, MRSA sputum, pressure ulcers, BPH with urination, admitted to TCU with debility, here for rehabilitation, strengthening, prior to discharge home with spouse. * Cough - order CXR, recommend incentive spirometer. * Bibasilar pneumonia - Z-daisy. * Dysuria - check UA, consistent with UTI. * E. Coli UTI - Ceftin 500MG BID x 10 days. * BPH - Finasteride 5MG, Tamsulosin 0.4MG daily. * Urinary retention - indwelling nunn catheter, Dr. Edmondson consulted. * Depression - Paroxetine 10MG QHS. * Anxiety - Ativan 0.5MG Q8H PRN anxiety.
[2018-11-10 16:00] VITALS: BP 137/74; PULSE 68; RESP 18; TEMP 37.1; O2SAT 97
[2018-11-10 16:50] VITALS: PULSE 69
[2018-11-10] MEDS: Tamsulosin HCl 0.4 MG Capsule PO (16:50)
[2018-11-10] MEDS: PARoxetine 10 MG Tablet PO (21:36)
[2018-11-10] MEDS: LORazepam 0.5 MG Tablet PO (21:36)
[2018-11-10] MEDS: traZODone 50 MG Tablet PO (21:36)
--- NOTE | 2018-11-11 00:18 | NURSING ---
Pt remains in contact/droplet precautions this shift. All care provided in room.
[2018-11-11] MEDS: Finasteride 5 MG Tablet PO (08:17)
[2018-11-11] MEDS: Azithromycin 250 MG Tablet PO (08:17)
[2018-11-11 08:18] VITALS: PULSE 76
[2018-11-11] MEDS: Metoprolol Tartrate 25 MG Tablet 12.5 MG PO ×2 (08:18→17:55)
[2018-11-11] MEDS: Polyethylene Glycol 3350 17 GM PACKET PO (08:18)
[2018-11-11] MEDS: Enoxaparin 40 MG/0.4 ML Syringe SC (08:18)
[2018-11-11] MEDS: Senna/Docusate Sodium 1 Tablet 2 TABLET PO ×2 (08:18→17:55)
[2018-11-11] MEDS: CEFUROXIME AXETIL 250 MG TABLET 500 MG PO ×2 (10:46→17:54)
--- NOTE | 2018-11-11 12:53 | NURSING ---
Pt remains in contact/droplet precautions this shift. All care provided in room.
[2018-11-11 15:29] VITALS: BP 118/74; PULSE 66; RESP 18; TEMP 36.9; O2SAT 90
[2018-11-11] MEDS: Tamsulosin HCl 0.4 MG Capsule PO (17:54)
[2018-11-11 17:55] VITALS: BP 118/74; PULSE 66
[2018-11-11] MEDS: traZODone 50 MG Tablet PO (21:07)
[2018-11-11] MEDS: PARoxetine 10 MG Tablet PO (21:07)
[2018-11-11] MEDS: LORazepam 0.5 MG Tablet PO (21:09)
[2018-11-12 08:47] VITALS: PULSE 74
[2018-11-12] MEDS: Polyethylene Glycol 3350 17 GM PACKET PO (08:47)
[2018-11-12] MEDS: Senna/Docusate Sodium 1 Tablet 2 TABLET PO ×2 (08:47→17:22)
[2018-11-12] MEDS: Finasteride 5 MG Tablet PO (08:47)
[2018-11-12] MEDS: Azithromycin 250 MG Tablet PO (08:47)
[2018-11-12] MEDS: Metoprolol Tartrate 25 MG Tablet 12.5 MG PO ×2 (08:47→17:26)
[2018-11-12] MEDS: Enoxaparin 40 MG/0.4 ML Syringe SC (08:47)
[2018-11-12] MEDS: CEFUROXIME AXETIL 250 MG TABLET 500 MG PO ×2 (08:48→17:21)
--- NOTE | 2018-11-12 10:38 | NURSING ---
t remains in contact/droplet precautions this shift. All care provided in room.
[2018-11-12 15:06] VITALS: BP 127/74; PULSE 65; RESP 18; TEMP 36.9; O2SAT 90
[2018-11-12] MEDS: Tamsulosin HCl 0.4 MG Capsule PO (17:21)
[2018-11-12 17:26] VITALS: BP 127/74; PULSE 65
[2018-11-12] MEDS: traZODone 50 MG Tablet PO (21:12)
[2018-11-12] MEDS: PARoxetine 10 MG Tablet PO (21:12)
[2018-11-12] MEDS: LORazepam 0.5 MG Tablet PO (21:13)
[2018-11-12 21:19] VITALS: O2SAT 95
--- NOTE | 2018-11-13 00:28 | NURSING ---
All care provided in room d/t pt remains in precautions.
[2018-11-13] MEDS: CEFUROXIME AXETIL 250 MG TABLET 500 MG PO ×2 (07:49→17:07)
[2018-11-13 07:50] VITALS: BP 136/80; PULSE 80
[2018-11-13] MEDS: Metoprolol Tartrate 25 MG Tablet 12.5 MG PO ×2 (07:50→17:07)
[2018-11-13] MEDS: Enoxaparin 40 MG/0.4 ML Syringe SC (07:50)
[2018-11-13] MEDS: Polyethylene Glycol 3350 17 GM PACKET PO (07:50)
[2018-11-13] MEDS: Senna/Docusate Sodium 1 Tablet 2 TABLET PO ×2 (07:51→17:07)
[2018-11-13] MEDS: Finasteride 5 MG Tablet PO (07:51)
[2018-11-13] MEDS: Azithromycin 250 MG Tablet PO (07:53)
[2018-11-13 15:18] VITALS: BP 108/53; PULSE 73; RESP 18; TEMP 37.4; O2SAT 93
[2018-11-13 17:07] VITALS: BP 108/53; PULSE 73
[2018-11-13] MEDS: Tamsulosin HCl 0.4 MG Capsule PO (17:07)
--- NOTE | 2018-11-13 18:17 | CON.PCM_ITS ---
Problem List (1) Urinary retention due to benign prostatic hyperplasia Status: Acute Reason for Consult Date of Consultation: 11/13/18 Reason for Consultation: urinary retention History of Present Illness: The patient is a 58 year old Male with BPH typically on proscar when saw him was very sick icu long hospital stay needed catheter. in rehab now up ad shyam walking urine clear treated for UTI Past Medical History Past Medical History (Chronic Problems): Chronic Problems Benign prostatic hyperplasia (Chronic) Elevated PSA (Chronic) Obstructive sleep apnea (Chronic) Anxiety (Chronic) Allergies vancomycin Allergy (Verified 11/08/18 16:43) Unknown Home Medications: Ambulatory Orders Medication Instructions Recorded Finasteride 5 mg PO DAILY 11/08/18 Heparin Injection 5,000 units SC Q8 11/08/18 Metoprolol Tartrate [Lopressor 12.5 mg PO BID 11/08/18 ([place])] Sennosides/Docusate Sodium 2 tab PO BID 11/08/18 [Docusate Sodium-Senna Tablet] Tamsulosin HCl [Flomax] 0.4 mg PO DAILY@1730 11/08/18 traZODone [Desyrel] 50 mg PO QHS 11/08/18 Surgical History: rotator cuff repair, - - Tracheostomy, septum frontal sinuses. Psychiatric History: Anxiety Lives: Spouse/ Significant Other Smoking Status: Former smoker Tobacco Use: Non-smoker Alcohol: None Drugs: None - *Family History Maternal History Items: No pertinent history Paternal History Items: No pertinent history Review of Systems Constitutional: Denies: Chills, Fever, Weight Change HEENT: Denies: Head Aches, Sinus Congestion, Sinus Drainage Cardiovascular: Denies: Chest Pain, Palpitations Respiratory: Denies: Cough, Shortness of breath at rest, Sputum production Gastrointestinal: Denies: Abdominal Pain, Nausea, Vomiting Genitourinary: Reports: Dysuria, Retention, Urgency Musculoskeletal: Denies: Joint Pain, Joint Tenderness Skin: Denies: Rash, Wounds Neurological: Denies: Numbness, Tingling, Focal weakness Psychiatric: Denies: Anxiety, Depression, Homicidal Ideations, Suicidal Ideatio ns Hematologic/ Lymphatic: Denies: Easy Bruising, Easy Bleeding Physical Exam - Physical Exam Vital Signs Temp 99.4 F H 11/13/18 15:18 Pulse 73 11/13/18 17:07 Resp 18 11/13/18 15:18 BP 108/53 L 11/13/18 17:07 Pulse Ox 93 11/13/18 15:18 Intake & Output 11/11/18 11/12/18 11/13/18 23:59 23:59 23:59 Intake Total 720 / 720 400 / 400 720 / 720 Output Total 1800 / 1800 1999 800 / 800 Balance -1080 / -1080 -1600 / -1600 -80 / -80 Intake: Oral 720 / 720 400 / 400 720 / 720 Output: Urine 1800 / 1800 1999 800 / 800 General: Alert, Oriented x3 HEENT: Atraumatic Oral: Moist Mucosa Neck: Supple Lungs: Normal air movement Cardiovascular: Regular rate Abdomen: Soft, Obese Assessment/Plan All Active Problems Acute respiratory failure (Acute) Influenza (Acute) Pneumonia (Acute) MRSA (methicillin resistant Staphylococcus aureus) infection (Acute) ARDS (adult respiratory distress syndrome) (Acute) Stage III pressure ulcer of sacral region (Acute) Stage III pressure ulcer of right buttock (Acute) New onset atrial fibrillation (Acute) Urinary retention (Acute) Urinary retention due to benign prostatic hyperplasia (Acute) double flomax to Bid add proscar 5mg daily d/c nunn on tuesday for void trial
[2018-11-13] MEDS: PARoxetine 10 MG Tablet PO (21:03)
[2018-11-13] MEDS: traZODone 50 MG Tablet PO (21:03)
[2018-11-13] MEDS: LORazepam 0.5 MG Tablet PO (21:24)
--- NOTE | 2018-11-13 21:58 | NURSING ---
Pt remains in precautions this shift. All care provided in room.
[2018-11-14] MEDS: Tamsulosin HCl 0.4 MG Capsule PO ×2 (08:33→17:10)
[2018-11-14 08:34] VITALS: PULSE 74
[2018-11-14] MEDS: Polyethylene Glycol 3350 17 GM PACKET PO (08:34)
[2018-11-14] MEDS: Finasteride 5 MG Tablet PO (08:34)
[2018-11-14] MEDS: Metoprolol Tartrate 25 MG Tablet 12.5 MG PO ×2 (08:34→17:10)
[2018-11-14] MEDS: Enoxaparin 40 MG/0.4 ML Syringe SC (08:34)
[2018-11-14] MEDS: Senna/Docusate Sodium 1 Tablet 2 TABLET PO ×2 (08:34→17:11)
[2018-11-14] MEDS: CEFUROXIME AXETIL 250 MG TABLET 500 MG PO ×2 (08:35→17:09)
[2018-11-14] MEDS: Azithromycin 250 MG Tablet PO (08:35)
--- NOTE | 2018-11-14 08:55 | NURSING ---
Per Cj, infection control, okay to take patient out of precautions for MRSA. Patient made aware.
--- NOTE | 2018-11-14 08:57 | NURSING ---
Dr. Olson notified of hematuria, NNO, continue to monitor.
--- NOTE | 2018-11-14 12:44 | CASEMGMT ---
Addendum entered by Margaret Blanc 11/15/18 08:02: Reviewed student social services specialist notes. CARROLL Rashid Original Note: Brief interview for mental status (BIMS) and mood (PHQ-9) completed on this day. BIMS score . PHQ-9 score 11/15. Raúl Encarnacion social work student
--- NOTE | 2018-11-14 13:00 | CASEMGMT ---
Insurance Clinicals faxed. Will await continued stay determination. Auth # [id number] CARROLL Rashid
--- NOTE | 2018-11-14 14:13 | NURSING ---
Per Dr. Edmondson, nunn catheter may be removed on 11/15/18.
--- NOTE | 2018-11-14 14:36 | NURSING ---
wound photo: bienvenido cleft
[2018-11-14 16:00] VITALS: BP 121/70; PULSE 69; RESP 18; TEMP 36.9; O2SAT 90
[2018-11-14 17:10] VITALS: BP 121/70; PULSE 69
[2018-11-14] MEDS: traZODone 50 MG Tablet PO (21:39)
[2018-11-14] MEDS: PARoxetine 10 MG Tablet PO (21:39)
[2018-11-14] MEDS: LORazepam 0.5 MG Tablet PO (21:39)
--- NOTE | 2018-11-15 06:40 | NURSING ---
Gómez catheter removed per order. Pt tolerated well. Encouraged pt to ask for assistance if needed.
[2018-11-15 08:36] VITALS: PULSE 65
[2018-11-15] MEDS: Metoprolol Tartrate 25 MG Tablet 12.5 MG PO ×2 (08:36→18:28)
[2018-11-15] MEDS: CEFUROXIME AXETIL 250 MG TABLET 500 MG PO ×2 (08:36→18:24)
[2018-11-15] MEDS: Senna/Docusate Sodium 1 Tablet 2 TABLET PO ×2 (08:37→18:26)
[2018-11-15] MEDS: Enoxaparin 40 MG/0.4 ML Syringe SC (08:37)
[2018-11-15] MEDS: Polyethylene Glycol 3350 17 GM PACKET PO (08:37)
[2018-11-15] MEDS: Tamsulosin HCl 0.4 MG Capsule PO ×2 (08:37→18:25)
[2018-11-15] MEDS: Azithromycin 250 MG Tablet PO (08:38)
[2018-11-15] MEDS: Finasteride 5 MG Tablet PO (08:38)
--- NOTE | 2018-11-15 08:48 | NURSING ---
pt voided while having BM this AM but flushed. Bladder scanned for 125cc.
--- NOTE | 2018-11-15 14:34 | CASEMGMT ---
Social Work Plan of care meeting held today with pt and attending. Pt is receiving PT/OT and progressing well with therapy. Pt requesting to d/c home on Tuesday11/17/18. Pt will need wheeled walker and SW inquired about Home health nurse for wound care. Pt denies need for home nurse stating his family is medically trained and can assist if needed. Pt would like scripts sent to [facility] and would like to change PCP to Dr. Olson. SW informed nursing of scripts and request for Dr. Olson and to review wound needs with pt and . Walker to be ordered for pt. Pt with no preference in company used. SW will continue to be available should other needs arise. Plan: Home with providing 24 hour care initially. CARROLL Amos
--- NOTE | 2018-11-15 14:35 | NURSING ---
spoke with wound nurse regarding home going orders for buttocks. pt only needs lance applied to area on buttocks. pt and updated. will send home with tube.
[2018-11-15 15:19] VITALS: BP 131/70; PULSE 65; RESP 18; TEMP 36.4; O2SAT 93
[2018-11-15 18:28] VITALS: BP 131/70; PULSE 65
--- NOTE | 2018-11-15 20:24 | DCINST_ITS ---
- Discharge Diagnoses Current Active Problems: Current Active and Chronic Problems Acute respiratory failure (Acute) Influenza (Acute) Pneumonia (Acute) MRSA (methicillin resistant Staphylococcus aureus) infection (Acute) ARDS (adult respiratory distress syndrome) (Acute) Stage III pressure ulcer of sacral region (Acute) Stage III pressure ulcer of right buttock (Acute) New onset atrial fibrillation (Acute) Urinary retention (Acute) Benign prostatic hyperplasia (Chronic) Elevated PSA (Chronic) Obstructive sleep apnea (Chronic) Anxiety (Chronic) Urinary retention due to benign prostatic hyperplasia (Acute) You will use the following diet at home:: No restrictions, Regular Your food should be the consistency of: Regular Your liquids should be the consistency of: Regular/Thin Discharge Activity: Return to Normal Activity, May Shower, Use Walker May resume sexual activity in: No Restrictions Weight Bearing Status: Weight bearing as tolerated Call your doctor if you observe: Fever of 101 or Higher, Inability to urinate, Inability to have a bowel movement, Shortness of breath, Chest pain, Uncontrolled pain Allergies/Adverse Reactions: Allergies vancomycin Allergy (Verified 11/08/18 16:43) Unknown Medications to take at Discharge traZODone [Desyrel] 50 mg PO QHS 11/08/18 Acetaminophen [Tylenol] 1,000 mg PO Q6H PRN PRN tablet 11/15/18 Finasteride 5 mg PO DAILY #30 tablet 11/15/18 Lorazepam [Ativan] 0.5 mg PO Q8H PRN PRN #30 tab 11/15/18 Menthol/Lanolin/Calamine/Znox [Calmoseptine Ointment] 1 applic TOPICAL BID tube 11/15/18 Metoprolol Tartrate [Lopressor (beta amalia)] 12.5 mg PO BID #30 tablet 11/15/18 Mineral Oil/Petrolatum,White [Eucerin] 1 applic TOPICAL QHS jar 11/15/18 Nutritional Supplement [Joseph - ORANGE FLAVOR] 1 packet PO BIDCM #60 packet 11/15/18 Paroxetine [Paxil] 10 mg PO QHS #30 tablet 11/15/18 Tamsulosin HCl [Flomax] 0.4 mg PO DAILY@1730 #30 capsule 11/15/18 The following prescriptions were given: Lorazepam [Ativan] 0.5 mg PO Q8H PRN PRN #30 tab PRN Reason: Anxiety Finasteride 5 mg PO DAILY #30 tablet Paroxetine [Paxil] 10 mg PO QHS #30 tablet Tamsulosin HCl [Flomax] 0.4 mg PO DAILY@1730 #30 capsule Metoprolol Tartrate [Lopressor (beta amalia)] 12.5 mg PO BID #30 tablet Nutritional Supplement [Joseph - ORANGE FLAVOR] 1 packet PO BIDCM #60 packet Primary Care Physician: Teodoro Olson Chi, MD [Primary Care Provider] - Please follow up with your Primary Care Physician in: 1 week. Test Results: Test results from this visit will be discussed in further detail at your follow- up appointment, if applicable. Please Follow Up With: Malik Edmondson MD When: 2 weeks. Please Follow Up With: Teodoro Olson Chi, MD Proposed Discharge Date: 11/17/18
--- NOTE | 2018-11-15 20:24 | PCM.DC.SUM ---
Discharge Date and Diagnosis - Problem List Patient Problems: Active and Suspected Problems Acute respiratory failure (Acute) Influenza (Acute) Pneumonia (Acute) MRSA (methicillin resistant Staphylococcus aureus) infection (Acute) ARDS (adult respiratory distress syndrome) (Acute) Stage III pressure ulcer of sacral region (Acute) Stage III pressure ulcer of right buttock (Acute) New onset atrial fibrillation (Acute) Urinary retention (Acute) Urinary retention due to benign prostatic hyperplasia (Acute) Date of Admission: 11/08/18 Date of Discharge: 11/17/18 - Primary Discharge Diagnosis Active and Suspected Problems Acute respiratory failure (Acute) Influenza (Acute) Pneumonia (Acute) MRSA (methicillin resistant Staphylococcus aureus) infection (Acute) ARDS (adult respiratory distress syndrome) (Acute) Stage III pressure ulcer of sacral region (Acute) Stage III pressure ulcer of right buttock (Acute) New onset atrial fibrillation (Acute) Urinary retention (Acute) Urinary retention due to benign prostatic hyperplasia (Acute) - Secondary Discharge Diagnosis Chronic Problems Benign prostatic hyperplasia (Chronic) Elevated PSA (Chronic) Obstructive sleep apnea (Chronic) Anxiety (Chronic) Hospital Course and Treatment Imaging Results: 11/08/18 16:38 Diet: Regular Diet Clinical Impression(s) from Imaging Studies Chest X-Ray 11/09/18 12:25 IMPRESSION: Bilateral pneumonia. Electronically Signed: Anita Arce, at 16:14 EDT Tel , Service support , Consultations 11/08/18 16:46 Consult: Onc/Wound/world geography teacher Routine Comment: Reason for Consult:: buttock pressure wounds Operations: None Procedures: None Summary of Care Provided: The patient is a 58 year old Male with below past medical history hospitalized for acute respiratory failure secondary to influenza pneumonia requiring mechanical ventilation subsequent tracheostomy, complicated by atrial fibrillation, MRSA sputum, pressure ulcers, BPH with urination, admitted to TCU with debility, here for rehabilitation, strengthening, prior to discharge home with spouse. Discharge home with providing 24 hour care initially. Patient Problems: Active and Suspected Problems Acute respiratory failure (Acute) Influenza (Acute) Pneumonia (Acute) MRSA (methicillin resistant Staphylococcus aureus) infection (Acute) ARDS (adult respiratory distress syndrome) (Acute) Stage III pressure ulcer of sacral region (Acute) Stage III pressure ulcer of right buttock (Acute) New onset atrial fibrillation (Acute) Urinary retention (Acute) Urinary retention due to benign prostatic hyperplasia (Acute) - Physical Exam Vital Signs Temp Pulse Resp BP Pulse Ox 97.5 F L 65 18 131/70 H 93 11/15/18 15:19 11/15/18 18:28 11/15/18 15:19 11/15/18 18:28 11/15/18 15:19 Oxygen Delivery Method Room Air Weight: 120.315 kg Body Mass Index (BMI) 33.2 Intake and Output for Last 24 Hours 11/13/18 11/14/18 11/15/18 23:59 23:59 23:59 Intake Total 840 / 840 1160 / 1160 720 / 720 Output Total 1350 / 1350 500 / 500 800 / 800 Balance -510 / -510 660 / 660 -80 / -80 Discharge Diet: No Restrictions Discharge Activity: Return to Normal Activity, May Shower, Use Walker May resume sexual activity in: No Restrictions Weight Bearing Status: Weight bearing as tolerated Call your doctor if you observe: Fever of 101 or Higher, Inability to urinate, Inability to have a bowel movement, Shortness of breath, Chest pain, Uncontrolled pain Home Medications: Medications to take at Discharge traZODone [Desyrel] 50 mg PO QHS 11/08/18 Acetaminophen [Tylenol] 1,000 mg PO Q6H PRN PRN tablet 11/15/18 Finasteride 5 mg PO DAILY #30 tablet 11/15/18 Lorazepam [Ativan] 0.5 mg PO Q8H PRN PRN #30 tab 11/15/18 Menthol/Lanolin/Calamine/Znox [Calmoseptine Ointment] 1 applic TOPICAL BID tube 11/15/18 Metoprolol Tartrate [Lopressor (beta amalia)] 12.5 mg PO BID #30 tablet 11/15/18 Mineral Oil/Petrolatum,White [Eucerin] 1 applic TOPICAL QHS jar 11/15/18 Nutritional Supplement [Joseph - ORANGE FLAVOR] 1 packet PO BIDCM #60 packet 11/15/18 Paroxetine [Paxil] 10 mg PO QHS #30 tablet 11/15/18 Tamsulosin HCl [Flomax] 0.4 mg PO DAILY@1730 #30 capsule 11/15/18 Following Prescrptions Were Given to Patient: Lorazepam [Ativan] 0.5 mg PO Q8H PRN PRN #30 tab PRN Reason: Anxiety Finasteride 5 mg PO DAILY #30 tablet Paroxetine [Paxil] 10 mg PO QHS #30 tablet Tamsulosin HCl [Flomax] 0.4 mg PO DAILY@1730 #30 capsule Metoprolol Tartrate [Lopressor (beta amalia)] 12.5 mg PO BID #30 tablet Nutritional Supplement [Joseph - ORANGE FLAVOR] 1 packet PO BIDCM #60 packet Primary Care Physician: Teodoro Olson Chi, MD [Primary Care Provider] - Please follow up with your Primary Care Physician in: 1 week. Please Follow Up With: Malik Edmondson MD When: 2 weeks. Please Follow Up With: Teodoro Olson Chi, MD Disposition: Home Minutes spent on discharge:: 30 Patient Condition:: Good Medical Necessity - Tobacco Use Smoking Status: Former smoker Tobacco Use: Non-smoker Meaningful Use Info Meaningful Use Diagnoses (Choose all that apply): None applicable
[2018-11-15] MEDS: LORazepam 0.5 MG Tablet PO (21:23)
[2018-11-15] MEDS: PARoxetine 10 MG Tablet PO (21:23)
[2018-11-15] MEDS: traZODone 50 MG Tablet PO (21:23)
[2018-11-16 06:28] VITALS: O2SAT 98
[2018-11-16 06:29] LABS: Anion Gap 8 (5-15); BUN 19 mg/dL (7-18); BUN/Creat Ratio 26.5 RATIO (10-20); Calcium,Total 8.9 mg/dL (8.5-10.1); Chloride 106 mmol/L (98-107); Creatinine, Serum 0.72 mg/dL (0.70-1.30); EST Glomerular Filtration Rate 119 mL/min (>60); Est Glom Filt Rate - Afr Amer 144 mL/min (>60); Estimated Creatinine Clearance 132.03 ml/min; Glucose 102 mg/dL (74-106); Sodium Level 138 mmol/L (136-145)
[2018-11-16 06:47] LABS: Absolute Lymphocyte Count 1.83 X10^3/ul (0.83-4.51); Absolute Neutrophil Count 6.7 X10^3/uL (2.0-7.7); Basophil# 0.06 X10^3/uL; Basophil% 0.6 % (0-1); Eosinophil# 0.45 X10^3/uL; Eosinophils% 4.6 % (0-5); Hematocrit 33.1 % (40-54); Hemoglobin 10.1 g/dl (13.0-16.5); Lymphocyte # 1.83 X10^3/ul (4.0); Lymphocyte % 18.7 % (19-41); Mean Corp Hgb Conc 30.5 g/gl (32-36); Mean Corpuscular Hgb 21.5 pg (27.0-32.0); Mean Corpuscular Volume 70.4 fL (80-94); Monocyte# 0.71 X10^3/uL; Monocyte% 7.2 % (0-10); Neutrophil # 6.71 X10^3/uL (2.7-7.7); Neutrophil % 68.4 % (47-70); Platelet Count 296 K/mm3 (150-450); RBC Distribution Width CV 21.2 % (11.6-14.6); RBC Distribution Width SD 52.3 fl (35.1-43.9); White Blood Count 9.8 K/mm3 (4.4-11.0)
[2018-11-16 06:54] LABS: Differential Indicated SCAN CRITERIA MET; POSITIVE COUNT NO; POSITIVE DIFFERENTIAL NO; POSITIVE MORPHOLOGY YES
[2018-11-16 07:23] LABS: Anisocytosis 1+; Differential Comment SCAN; Hypochromasia 1+; Microcytosis 1+; Platelet Estimate ADEQUATE (ADEQ); Polychromasia 1+
--- NOTE | 2018-11-16 08:23 | CASEMGMT ---
Insurance: Patient approved for 5 additional days. D 11/19 with a projected D/C of 11/20/18. Auth#[id number].
--- NOTE | 2018-11-16 08:25 | CASEMGMT ---
Nursing Teacher Referral [place] [facility] [place]. Referral faxed for celestina reyna. CARROLL Rashid
[2018-11-16 08:34] VITALS: PULSE 71
[2018-11-16] MEDS: Metoprolol Tartrate 25 MG Tablet 12.5 MG PO ×2 (08:34→17:19)
[2018-11-16] MEDS: Polyethylene Glycol 3350 17 GM PACKET PO (08:34)
[2018-11-16] MEDS: Tamsulosin HCl 0.4 MG Capsule PO ×2 (08:34→17:16)
[2018-11-16] MEDS: Finasteride 5 MG Tablet PO (08:34)
[2018-11-16] MEDS: Senna/Docusate Sodium 1 Tablet 2 TABLET PO ×2 (08:35→17:16)
[2018-11-16] MEDS: CEFUROXIME AXETIL 250 MG TABLET 500 MG PO ×2 (08:35→17:16)
[2018-11-16 15:37] VITALS: BP 130/73; PULSE 67; RESP 18; TEMP 38.1; O2SAT 90
[2018-11-16 17:19] VITALS: PULSE 69
[2018-11-16] MEDS: PARoxetine 10 MG Tablet PO (21:00)
[2018-11-16] MEDS: LORazepam 0.5 MG Tablet PO (21:00)
[2018-11-16] MEDS: traZODone 50 MG Tablet PO (21:00)
[2018-11-17 08:50] VITALS: PULSE 71
[2018-11-17] MEDS: Tamsulosin HCl 0.4 MG Capsule PO (08:50)
[2018-11-17] MEDS: Metoprolol Tartrate 25 MG Tablet 12.5 MG PO (08:50)
[2018-11-17] MEDS: Polyethylene Glycol 3350 17 GM PACKET PO (08:50)
[2018-11-17] MEDS: Finasteride 5 MG Tablet PO (08:51)
[2018-11-17] MEDS: Senna/Docusate Sodium 1 Tablet 2 TABLET PO (08:51)
[2018-11-17] MEDS: Menthol/Lanolin/Calamine/Znox 113 GM Tube 1 APPLIC TOPICAL (09:08)
[2018-11-17 12:30] VITALS: BP 118/75; PULSE 71; RESP 20; TEMP 36.8; O2SAT 95
--- NOTE | 2018-11-17 12:32 | MDS.RN ---
Information for the mds was obtained from review of the clinical record, interview of resident, staff, and direct observation of resident's care.
--- NOTE | 2018-11-17 14:14 | CASEMGMT ---
Insurance Notified insurance that pt d/c home today 11/17/18. Auth # [id number] CARROLL Naqvi
== END 2018-11-17 12:30 | disposition home or self-care (01) | DRG 947 ==
PROVIDERS: Admitting Provider Family Medicine Geriatric Medicine; Family Provider Family Medicine Geriatric Medicine; PCP Family Medicine Geriatric Medicine; Referring Provider Family Medicine Geriatric Medicine; Visit Provider Family Medicine Geriatric Medicine
DX: R53.81 Other malaise (principal); L89.313 Pressure ulcer of right buttock, stage 3; L89.153 Pressure ulcer of sacral region, stage 3; J11.08 Influenza due to unidentified influenza virus with specified pneumonia; J15.212 Pneumonia due to Methicillin resistant Staphylococcus aureus; N40.1 Benign prostatic hyperplasia with lower urinary tract symptoms; R33.8 Other retention of urine; G47.33 Obstructive sleep apnea (adult) (pediatric); F41.9 Anxiety disorder, unspecified; I48.91 Unspecified atrial fibrillation; G47.00 Insomnia, unspecified; Z87.891 Personal history of nicotine dependence
CPT/HCPCS: 36415; 71045; 80048; 81001; 84153; 85025; 87086; 87088; 87186; 97110; 97116; 97163; 97166; 97530; 97535; 97802

== ENCOUNTER → 2018-11-22 16:23 | Outpatient (CLI) | payer OTHER, SELFPAY ==
[2018-11-08 16:51] VITALS: BMI 33.2
[2018-11-22 17:45] LABS: ALB/GLOB Ratio 0.8 RATIO (0.9-2.4); AST(SGOT) 15 U/L (15-37); Alanine Aminotransfer ALT/SGPT 24 U/L (16-61); Albumin, Serum 3.6 g/dL (3.2-5.0); Alkaline Phosphatase 62 U/L (45-117); Anion Gap 9 (5-15); BUN 27 mg/dL (7-18); BUN/Creat Ratio 29.9 RATIO (10-20); Calcium,Total 8.9 mg/dL (8.5-10.1); Chloride 107 mmol/L (98-107); EST Glomerular Filtration Rate 91 mL/min (>60); Est Glom Filt Rate - Afr Amer 111 mL/min (>60); Globulin 4.7 g/dL (2.2-4.2); Glucose 107 mg/dL (74-106); PSA,Total - Annual Screen 3.53 ng/mL (0.00-4.00); Potassium 4.2 mmol/L (3.5-5.1); Protein, Total 8.3 g/dL (6.4-8.2); Sodium Level 138 mmol/L (136-145); Thyroid Stim Hormone (TSH) 1.49 uIU/mL (0.358-3.74)
[2018-11-22 18:15] LABS: Absolute Lymphocyte Count 2.16 X10^3/ul (0.83-4.51); Absolute Neutrophil Count 7.5 X10^3/uL (2.0-7.7); Basophil# 0.03 X10^3/uL; Basophil% 0.3 % (0-1); Eosinophil# 0.34 X10^3/uL; Eosinophils% 3.2 % (0-5); Hematocrit 34.9 % (40-54); Hemoglobin 11.1 g/dl (13.0-16.5); Lymphocyte # 2.16 X10^3/ul (4.0); Lymphocyte % 20.1 % (19-41); Mean Corp Hgb Conc 31.8 g/gl (32-36); Mean Corpuscular Hgb 21.8 pg (27.0-32.0); Mean Corpuscular Volume 68.6 fL (80-94); Monocyte% 6.5 % (0-10); Neutrophil # 7.49 X10^3/uL (2.7-7.7); Neutrophil % 69.5 % (47-70); Platelet Count 319 K/mm3 (150-450); RBC Distribution Width CV 21.4 % (11.6-14.6); RBC Distribution Width SD 51.4 fl (35.1-43.9); Red Blood Count 5.09 M/mm3 (4.6-6.2); White Blood Count 10.8 K/mm3 (4.4-11.0)
[2018-11-22 18:19] LABS: POSITIVE COUNT NO; POSITIVE DIFFERENTIAL NO; POSITIVE MORPHOLOGY YES
[2018-11-22 18:20] LABS: Differential Indicated SCAN CRITERIA MET
[2018-11-22 18:26] LABS: Anisocytosis 1+; Platelet Estimate ADEQUATE (ADEQ)
[2018-11-22 18:27] LABS: Microcytosis 1+; Ovalocyte 1+; Target Cells RARE; Tear Drop Cell RARE
[2018-11-24 12:24] LABS: Hep C Antibodies 0.2 s/co ratio (0.0-0.9)
== END ==
PROVIDERS: Family Provider Family Medicine Geriatric Medicine; PCP Family Medicine Geriatric Medicine; Visit Provider Family Medicine Geriatric Medicine
DX: I10 Essential (primary) hypertension (principal); Z12.5 Encounter for screening for malignant neoplasm of prostate; Z13.89 Encounter for screening for other disorder
CPT/HCPCS: 36415; 80053; 84153; 84443; 85025; 86803; G0103

== ENCOUNTER → 2019-02-21 | Outpatient (CLI) | payer OTHER, SELFPAY ==
[2019-02-21 16:53] LABS: Absolute Neutrophil Count 5.6 X10^3/uL (2.0-7.7); Basophil# 0.03 X10^3/uL; Basophil% 0.4 % (0-1); Eosinophil# 0.15 X10^3/uL; Eosinophils% 1.8 % (0-5); Hematocrit 37.2 % (40-54); Hemoglobin 11.9 g/dl (13.0-16.5); Lymphocyte % 23.7 % (19-41); Mean Corpuscular Hgb 20.8 pg (27.0-32.0); Mean Corpuscular Volume 65.1 fL (80-94); Mean Platelet Vol. 11.4 fl (6.2-12.0); Monocyte# 0.68 X10^3/uL; Neutrophil # 5.58 X10^3/uL (2.7-7.7); Platelet Count 253 K/mm3 (150-450); RBC Distribution Width CV 16.3 % (11.6-14.6); RBC Distribution Width SD 37.4 fl (35.1-43.9); Red Blood Count 5.71 M/mm3 (4.6-6.2); White Blood Count 8.5 K/mm3 (4.4-11.0)
[2019-02-21 17:15] LABS: POSITIVE COUNT NO; POSITIVE DIFFERENTIAL NO; POSITIVE MORPHOLOGY NO
[2019-02-21 17:16] LABS: ALB/GLOB Ratio 1.1 RATIO (0.9-2.4); AST(SGOT) 14 U/L (15-37); Alanine Aminotransfer ALT/SGPT 23 U/L (16-61); Albumin, Serum 3.9 g/dL (3.2-5.0); Alkaline Phosphatase 70 U/L (45-117); Anion Gap 10 (5-15); BUN 16 mg/dL (7-18); BUN/Creat Ratio 19.5 RATIO (10-20); Calcium,Total 8.7 mg/dL (8.5-10.1); Chloride 110 mmol/L (98-107); Creatinine, Serum 0.82 mg/dL (0.70-1.30); EST Glomerular Filtration Rate 102 mL/min (>60); Est Glom Filt Rate - Afr Amer 123 mL/min (>60); Globulin 3.6 g/dL (2.2-4.2); Glucose 95 mg/dL (74-106); Potassium 4.1 mmol/L (3.5-5.1); Protein, Total 7.5 g/dL (6.4-8.2); Sodium Level 144 mmol/L (136-145); Thyroid Stim Hormone (TSH) 1.31 uIU/mL (0.358-3.74)
== END | disposition home or self-care (01) ==
LOC: POLAB3 13:29
PROVIDERS: Family Provider Family Medicine Geriatric Medicine; PCP Family Medicine Geriatric Medicine; Referring Provider Urology; Visit Provider Family Medicine Geriatric Medicine
DX: I10 Essential (primary) hypertension (principal)
CPT/HCPCS: 36415; 80053; 84443; 85025

== ENCOUNTER → 2019-04-04 | Outpatient (CLI) | payer OTHER, SELFPAY ==
[2019-04-04 10:25] VITALS: BMI 39.4
[2019-04-04 12:53] LABS: Anion Gap 7 (5-15); BUN 17 mg/dL (7-18); Calcium,Total 8.8 mg/dL (8.5-10.1); Chloride 112 mmol/L (98-107); Creatinine, Serum 0.85 mg/dL (0.70-1.30); EST Glomerular Filtration Rate 98 mL/min (>60); Est Glom Filt Rate - Afr Amer 118 mL/min (>60); Glucose 93 mg/dL (74-106); Potassium 4.4 mmol/L (3.5-5.1); Sodium Level 143 mmol/L (136-145)
== END | disposition home or self-care (01) ==
LOC: POLAB3 11:59
PROVIDERS: Family Provider Family Medicine Geriatric Medicine; PCP Family Medicine Geriatric Medicine; Visit Provider Family Medicine Geriatric Medicine
DX: I10 Essential (primary) hypertension (principal)
CPT/HCPCS: 36415; 80048

== ENCOUNTER 2019-04-11 08:40 | Day surgery (SDC) | payer OTHER, SELFPAY ==
[2019-04-04 10:25] VITALS: BP 191/69; PULSE 57; RESP 16; TEMP 36.5; O2SAT 98; BMI 39.4
[2019-04-11] VITALS (12 sets, daily range): BP systolic 146–174; BP diastolic 68–95; PULSE 51–68; RESP 16–18; TEMP 36.3–37.4; O2SAT 92–98; BMI 39.4
[2019-04-11] MEDS: Lactated Ringers 1,000 ML 100 ML IV (09:57)
--- NOTE | 2019-04-11 11:45 | PROS_PTH ---
PATIENT: FERNANDA SCHMITZ LOC: [facility] U#:[id number] AGE/SX: 59/M ROOM: RE04/11/[address]: Dr. Malik Edmondson MD : 1960 BED: DIS: 04/12/2019 SPEC #: [id number] RECD: 04/11/19 16:49 STATUS: LINDSEY REHi #: [id number] SHANNAN: 04/11/19 11:[address]: Malik Edmondson DEPT: SURGICAL PATHOLOGY RECD BY: Chavez Reyes ENTERED: 04/12/19 07:46 SP TYPE: TURP OTHR DR: Dr. Teodoro Olson MD Tissues: Prostate, NOS Procedures: Surgery Specimen Level IV HEADER OPERATION: Cysto, TUR, prostate, Olympus PRE-OP DIAGNOSIS: Benign prostatic hyperplasia with lower urinary tract symptoms TISSUE SUBMITTED: Prostate chips MICROSCOPIC DIAGNOSIS Prostate chips, TUR: Benign prostatic hyperplasia, glandular and stromal type. Chronic inflammation. SJ:maria c 04/13/19 MICROSCOPIC DESCRIPTION Slides are reviewed. GROSS DESCRIPTION Received is one container labeled with the patient's name and designated prostate tissue. The specimen consists of multiple irregular fragments of pink-sánchez, rubbery, soft tissue that in aggregate weigh 23.4 gm and measure in aggregate 6 x 6 x 3 cm. Foreclosure Field Inspector tissue is submitted in 12 cassettes. / LEE:maria c 04/12/19 TC:5 CPT: 94862
[2019-04-11] MEDS: Cefazolin 2 GM in 0.9% Normal Saline 100 ML IV (12:19)
--- NOTE | 2019-04-11 13:38 | DCINST_ITS ---
Discharge Diet: Light diet - advance as tolerated Discharge Activity: Return to Normal Activity Call your doctor if your incision/area has: Continuous Slow Oozing, Sudden Increased Bleeding, Increased Pain/ Swelling, Increased Redness Call your doctor if you observe: Fever of 101 or Higher Suture Line Care: Avoid Pulling/Pushing, Avoid Pinching/Bending Instructions: Transurethral Resection of the Prostate (TURP): Home Recovery Allergies/Adverse Reactions: Allergies vancomycin Allergy (Verified 04/11/19 09:40) Unknown Medications to take at Discharge Finasteride 5 mg PO DAILY #30 tablet 11/15/18 Metoprolol Tartrate [Lopressor (beta amalia)] 12.5 mg PO BID #30 tablet 11/15/18 Tamsulosin HCl [Flomax] 0.4 mg PO DAILY@1730 #30 capsule 11/15/18 Doxepin HCl [Sinequan] 25 mg PO QHS 04/04/19 Lisinopril 20 mg PO DAILY 04/04/19 Multivitamin with Minerals [Multiple Vitamin] 1 ea PO DAILY 04/04/19 Ciprofloxacin [Cipro] 500 mg PO BID #10 tab 04/11/19 The following prescriptions were given: Ciprofloxacin [Cipro] 500 mg PO BID #10 tab Prescription Printed Primary Care Physician: Teodoro Olson Chi, MD [Primary Care Provider] - Test Results: Test results from this visit will be discussed in further detail at your follow- up appointment, if applicable. Please Follow Up With: Malik Edmondson MD When: in 2 weeks, please call to make an appointment.
--- NOTE | 2019-04-11 13:42 | PCM.OPRPT ---
Report of Operation Date of Procedure: 04/11/19 Pre-Operative Diagnosis: BPH with obstruction Post-Operative Diagnosis: Same Surgery/Procedure Performed:: Transurethral resection of the prostate Description of Surgical Findings:: 59-year-old male with a very large prostate with a large median lobe causing obstruction and urinary symptoms today presents to the operating room for transurethral resection of the prostate. 59-year-old male taken back to the operating with the smooth induction of general anesthesia he was placed in dorsolithotomy position, penis and testicles were prepped and draped in usual sterile fashion. Went into the bladder with a 26 [place] continuous flow Olympus resectoscope using bipolar. He had a large median lobe large lateral lobes I resected a large median lobe resected a large lateral lobes were all the way down to the verumontanum I then used the button to smooth out the resection and very carefully smooth out the apical tissue there is no flapping tissue at the end had a nice wide open stream all the chips were Ellik out of the bladder obtain hemostasis but a 22 [place] catheter into the bladder continues. Bladder irrigation is taken back to PACU good condition. Resection time took over an hour. Type of Anesthesia:: General Drains: [address] - Admit VTE Documentation VTE Present on Admission: No VTE Mechan Device Prophylaxis: SCD's
[2019-04-11] MEDS: 0.9% Normal Saline 1,000 ML 125 ML IV ×2 (15:00→19:56)
[2019-04-11] MEDS: Tamsulosin HCl 0.4 MG Capsule PO (19:04)
[2019-04-11] MEDS: Docusate Sodium 100 MG Capsule PO (19:59)
[2019-04-11] MEDS: Ciprofloxacin 500 MG Tablet PO (19:59)
[2019-04-11] MEDS: Doxepin Hcl 25 MG Capsule PO (19:59)
[2019-04-11] MEDS: Metoprolol Tartrate 25 MG Tablet 12.5 MG PO (19:59)
--- NOTE | 2019-04-11 23:20 | NURSING ---
Pt on home CPAP. 02 sats frequently dropping to mid-high 80s. called respiratory to see if 02 can be bled into CPAP unit.
[2019-04-12 02:45] VITALS: BP 146/74; PULSE 57; RESP 18; TEMP 36.6; O2SAT 99
[2019-04-12] MEDS: 0.9% Normal Saline 1,000 ML 125 ML IV ×2 (03:18→10:22)
--- NOTE | 2019-04-12 07:32 | PCM.PN.BLA ---
Progress Note 59-year-old male status post TURP for a very large prostate catheter today can be removed for voiding trial push lots of fluids if he is able to urinate okay several times with a good flow he can go home today.
[2019-04-12 07:57] VITALS: BP 164/82; PULSE 56; RESP 18; TEMP 36.7; O2SAT 95
[2019-04-12] MEDS: Multivitamins,Ther W-Minerals Tablet 1 TABLET PO (07:59)
[2019-04-12] MEDS: Lisinopril 20 MG Tablet PO (08:00)
[2019-04-12] MEDS: Docusate Sodium 100 MG Capsule PO (08:00)
[2019-04-12] MEDS: Ciprofloxacin 500 MG Tablet PO (08:00)
[2019-04-12 08:01] VITALS: PULSE 56
[2019-04-12] MEDS: Metoprolol Tartrate 25 MG Tablet 12.5 MG PO (08:01)
[2019-04-12] MEDS: Finasteride 5 MG Tablet PO (08:02)
[2019-04-12 13:51] VITALS: BP 152/73; PULSE 58; RESP 18; TEMP 36.8; O2SAT 95
== END 2019-04-12 14:05 | disposition home or self-care (01) ==
LOC: SDC 08:41 → AC 08:41 → MS3 14:55
PROVIDERS: Family Provider Family Medicine Geriatric Medicine; PCP Family Medicine Geriatric Medicine; Referring Provider Urology; Visit Provider Urology
PROC: (CPT 52601; principal; 2019-04-11 11:35)
DX: N40.1 Benign prostatic hyperplasia with lower urinary tract symptoms (principal); N13.8 Other obstructive and reflux uropathy; I10 Essential (primary) hypertension; H91.90 Unspecified hearing loss, unspecified ear; Z87.39 Personal history of other diseases of the musculoskeletal system and connective tissue; Z79.899 Other long term (current) drug therapy; Z87.891 Personal history of nicotine dependence
CPT/HCPCS: 52601; 86850; 86900; 86901; 88305; 93005; J7030; J7120; J2405

== ENCOUNTER → 2019-05-24 13:58 | Outpatient (CLI) | payer OTHER, SELFPAY ==
[2019-04-11 09:42] VITALS: BMI 39.4
[2019-05-24 16:43] LABS: Absolute Lymphocyte Count 1.62 X10^3/uL (0.83-4.51); Absolute Neutrophil Count 9.4 X10^3/uL (2.0-7.7); Basophil# 0.06 X10^3/uL; Basophil% 0.5 % (0-1); Eosinophil# 0.19 X10^3/uL; Eosinophils% 1.6 % (0-5); Hemoglobin 11.1 g/dL (13.0-16.5); Lymphocyte # 1.62 X10^3/ul (4.0); Lymphocyte % 13.2 % (19-41); Mean Corpuscular Hgb 21.1 pg (27.0-32.0); Mean Corpuscular Volume 70.3 fL (80-94); Mean Platelet Vol. 11.4 fl (6.2-12.0); Monocyte# 0.88 X10^3/uL; Monocyte% 7.2 % (0-10); NRBC Flagged by Analyzer 0 % (0-5); Neutrophil # 9.42 X10^3/uL (2.7-7.7); Platelet Count 251 K/mm3 (150-450); RBC Distribution Width CV 16.4 % (11.6-14.6); RBC Distribution Width SD 39.8 fl (35.1-43.9); Red Blood Count 5.26 M/mm3 (4.6-6.2); White Blood Count 12.2 K/mm3 (4.4-11.0)
[2019-05-24 17:13] LABS: ALB/GLOB Ratio 1.1 RATIO (0.9-2.4); AST(SGOT) 22 U/L (15-37); Alanine Aminotransfer ALT/SGPT 39 U/L (16-61); Albumin, Serum 3.9 g/dL (3.2-5.0); Alkaline Phosphatase 71 U/L (45-117); Anion Gap 8 (5-15); BUN 17 mg/dL (7-18); BUN/Creat Ratio 18.5 RATIO (10-20); Chloride 111 mmol/L (98-107); Creatinine, Serum 0.92 mg/dL (0.70-1.30); EST Glomerular Filtration Rate 89 mL/min (>60); Est Glom Filt Rate - Afr Amer 108 mL/min (>60); Globulin 3.6 g/dL (2.2-4.2); Glucose 76 mg/dL (74-106); Potassium 3.8 mmol/L (3.5-5.1); Protein, Total 7.5 g/dL (6.4-8.2); Sodium Level 144 mmol/L (136-145); Vitamin D,25 Hydroxy 22.5 ng/mL (29.95-100.01)
== END ==
PROVIDERS: Family Provider Family Medicine Geriatric Medicine; PCP Family Medicine Geriatric Medicine; Visit Provider Family Medicine Geriatric Medicine
DX: E55.9 Vitamin D deficiency, unspecified (principal); I10 Essential (primary) hypertension
CPT/HCPCS: 36415; 80053; 82306; 84443; 85025

== ENCOUNTER → 2019-08-23 15:46 | Outpatient (CLI) | payer OTHER, SELFPAY ==
[2019-04-11 09:42] VITALS: BMI 39.4
[2019-08-23 17:22] LABS: Absolute Lymphocyte Count 2.14 X10^3/uL (0.83-4.51); Absolute Neutrophil Count 7.3 X10^3/uL (2.0-7.7); Basophil# 0.05 X10^3/uL; Basophil% 0.5 % (0-1); Eosinophil# 0.23 X10^3/uL; Eosinophils% 2.2 % (0-5); Hematocrit 37.7 % (40-54); Hemoglobin 11.5 g/dL (13.0-16.5); Lymphocyte # 2.14 X10^3/ul (4.0); Lymphocyte % 20.2 % (19-41); Mean Corp Hgb Conc 30.5 g/dL (32-36); Mean Corpuscular Hgb 21.5 pg (27.0-32.0); Mean Corpuscular Volume 70.5 fL (80-94); Mean Platelet Vol. 10.4 fl (6.2-12.0); Monocyte# 0.85 X10^3/uL; NRBC Flagged by Analyzer 0.2 % (0-5); Neutrophil # 7.29 X10^3/uL (2.7-7.7); Neutrophil % 68.7 % (47-70); Platelet Count 228 K/mm3 (150-450); RBC Distribution Width SD 39.1 fl (35.1-43.9); Red Blood Count 5.35 M/mm3 (4.6-6.2); White Blood Count 10.6 K/mm3 (4.4-11.0)
[2019-08-23 18:21] LABS: ALB/GLOB Ratio 0.9 RATIO (0.9-2.4); AST(SGOT) 29 U/L (15-37); Alanine Aminotransfer ALT/SGPT 46 U/L (16-61); Albumin, Serum 3.7 g/dL (3.2-5.0); Alkaline Phosphatase 74 U/L (45-117); Anion Gap 6 (5-15); BUN 23 mg/dL (7-18); BUN/Creat Ratio 23.5 RATIO (10-20); Calcium,Total 8.8 mg/dL (8.5-10.1); Chloride 110 mmol/L (98-107); Creatinine, Serum 0.98 mg/dL (0.70-1.30); EST Glomerular Filtration Rate 83 mL/min (>60); Est Glom Filt Rate - Afr Amer 100 mL/min (>60); Globulin 3.9 g/dL (2.2-4.2); Glucose 102 mg/dL (74-106); Potassium 3.8 mmol/L (3.5-5.1); Protein, Total 7.6 g/dL (6.4-8.2); Sodium Level 140 mmol/L (136-145); Thyroid Stim Hormone (TSH) 2.71 uIU/mL (0.358-3.74)
== END ==
PROVIDERS: Family Provider Family Medicine Geriatric Medicine; PCP Family Medicine Geriatric Medicine; Visit Provider Family Medicine Geriatric Medicine
DX: I10 Essential (primary) hypertension (principal); E55.9 Vitamin D deficiency, unspecified
CPT/HCPCS: 36415; 80053; 82306; 84443; 85025

== ENCOUNTER → 2019-10-11 11:35 | Outpatient (CLI) | payer OTHER, SELFPAY ==
[2019-04-11 09:42] VITALS: BMI 39.4
[2019-10-11 12:31] LABS: Absolute Lymphocyte Count 1.67 X10^3/uL (0.83-4.51); Absolute Neutrophil Count 5.7 X10^3/uL (2.0-7.7); Basophil# 0.05 X10^3/uL; Basophil% 0.6 % (0-1); Eosinophil# 0.23 X10^3/uL; Eosinophils% 2.8 % (0-5); Hematocrit 37.2 % (40-54); Hemoglobin 11.3 g/dL (13.0-16.5); Lymphocyte # 1.67 X10^3/ul (4.0); Mean Corp Hgb Conc 30.4 g/dL (32-36); Mean Corpuscular Hgb 21.4 pg (27.0-32.0); Mean Corpuscular Volume 70.6 fL (80-94); Mean Platelet Vol. 10.6 fl (6.2-12.0); Monocyte# 0.66 X10^3/uL; Monocyte% 7.9 % (0-10); NRBC Flagged by Analyzer 0 % (0-5); Neutrophil # 5.71 X10^3/uL (2.7-7.7); Neutrophil % 68.3 % (47-70); Platelet Count 219 K/mm3 (150-450); RBC Distribution Width CV 16.2 % (11.6-14.6); RBC Distribution Width SD 39.7 fl (35.1-43.9); Red Blood Count 5.27 M/mm3 (4.6-6.2); White Blood Count 8.4 K/mm3 (4.4-11.0)
== END ==
PROVIDERS: PCP Family Medicine Geriatric Medicine; Visit Provider Family Medicine Geriatric Medicine
DX: D64.9 Anemia, unspecified (principal)
CPT/HCPCS: 36415; 85025

== ENCOUNTER → 2020-05-09 | Outpatient (CLI) | payer OTHER, SELFPAY ==
[2019-04-11 09:42] VITALS: BMI 39.4
--- NOTE | 2020-05-09 | COLBX_PTH ---
PATIENT: FERNANDA SCHMITZ LOC: [facility] U#:[id number] AGE/SX: 60/M ROOM: RE05/09/[address]: Dr. Miguel Bajwa MD : 1960 BED: DIS: 05/09/2020 SPEC #: [id number] RECD: 05/09/20 15:00 STATUS: LINDSEY BLAIRE #: [id number] SHANNAN: 05/09/20 00:[address]: Miguel Bajaw DEPT: SURGICAL PATHOLOGY RECD BY: Tree Berman ENTERED: 05/12/20 06:52 SP TYPE: COLON BX OTHR DR: Dr. Teodoro Olson MD [facility] Tissues: Cecum, NOS Procedures: Surgery Specimen Level IV HEADER OPERATION: Colon with polypectomy PRE-OP DIAGNOSIS: Screening / polyp TISSUE SUBMITTED: Cecum polyps biopsies MICROSCOPIC DIAGNOSIS Cecum polyp, biopsy: Fragments of tubular adenoma. LEE:maria c 05/13/20 MICROSCOPIC DESCRIPTION Slides are reviewed. GROSS DESCRIPTION Received in fixative is one container labeled with the patient's name and designated cecum polyp biopsy. The specimen consists of multiple irregular fragments of light sánchez soft tissue that in aggregate measure 0.7 x 0.4 x 0.1 cm. The specimen is totally submitted in one cassette. / SJ:maria c 05/12/20 TC:1 CPT: 84022
== END | disposition home or self-care (01) ==
LOC: LABSPEC 16:13
PROVIDERS: PCP Family Medicine Geriatric Medicine; Referring Provider Internal Medicine Gastroenterology; Visit Provider Internal Medicine Gastroenterology
DX: Z13.9 Encounter for screening, unspecified (principal); D12.0 Benign neoplasm of cecum
CPT/HCPCS: 88305

== ENCOUNTER → 2020-06-05 15:16 | Outpatient (CLI) | payer OTHER, SELFPAY ==
[2019-04-11 09:42] VITALS: BMI 39.4
[2020-06-05 16:16] LABS: Absolute Lymphocyte Count 2.21 X10^3/uL (0.83-4.51); Absolute Neutrophil Count 8.4 X10^3/uL (2.0-7.7); Basophil# 0.07 X10^3/uL; Basophil% 0.6 % (0-1); Eosinophil# 0.21 X10^3/uL; Eosinophils% 1.8 % (0-5); Hematocrit 38.9 % (40-54); Hemoglobin 11.5 g/dL (13.0-16.5); Lymphocyte # 2.21 X10^3/ul (4.0); Lymphocyte % 18.9 % (19-41); Mean Corp Hgb Conc 29.6 g/dL (32-36); Mean Corpuscular Hgb 20.9 pg (27.0-32.0); Mean Corpuscular Volume 70.9 fL (80-94); Mean Platelet Vol. 9.9 fl (6.2-12.0); Monocyte# 0.79 X10^3/uL; Monocyte% 6.7 % (0-10); NRBC Flagged by Analyzer 0 % (0-5); Neutrophil # 8.36 X10^3/uL (2.7-7.7); Neutrophil % 71.4 % (47-70); Platelet Count 287 K/mm3 (150-450); RBC Distribution Width CV 16.8 % (11.6-14.6); RBC Distribution Width SD 40.4 fl (35.1-43.9); Red Blood Count 5.49 M/mm3 (4.6-6.2); White Blood Count 11.7 K/mm3 (4.4-11.0)
[2020-06-05 16:35] LABS: Vitamin D,25 Hydroxy 21.7 ng/mL
[2020-06-05 16:40] LABS: ALB/GLOB Ratio 0.9 RATIO (0.9-2.4); AST(SGOT) 20 U/L (15-37); Alanine Aminotransfer ALT/SGPT 40 U/L (16-61); Albumin, Serum 3.6 g/dL (3.2-5.0); Alkaline Phosphatase 67 U/L (45-117); Anion Gap 7 (5-15); BUN 19 mg/dL (7-18); BUN/Creat Ratio 17.6 RATIO (10-20); Calcium,Total 9.1 mg/dL (8.5-10.1); Chloride 110 mmol/L (98-107); Creatinine, Serum 1.08 mg/dL (0.70-1.30); EST Glomerular Filtration Rate 74 mL/min (>60); Est Glom Filt Rate - Afr Amer 89 mL/min (>60); Globulin 4.1 g/dL (2.2-4.2); Glucose 99 mg/dL (74-106); Protein, Total 7.7 g/dL (6.4-8.2); Sodium Level 142 mmol/L (136-145); Thyroid Stim Hormone (TSH) 1.35 uIU/mL (0.358-3.74)
== END ==
PROVIDERS: PCP Family Medicine Geriatric Medicine; Visit Provider Family Medicine Geriatric Medicine
DX: I10 Essential (primary) hypertension (principal); E78.5 Hyperlipidemia, unspecified; Z12.5 Encounter for screening for malignant neoplasm of prostate
CPT/HCPCS: 36415; 80053; 82306; 84443; 85025

== ENCOUNTER → 2020-09-16 14:51 | Outpatient (CLI) | payer OTHER, SELFPAY ==
[2019-04-11 09:42] VITALS: BMI 39.4
[2020-09-16 15:48] LABS: Absolute Lymphocyte Count 2.25 X10^3/uL (0.83-4.51); Absolute Neutrophil Count 6.2 X10^3/uL (2.0-7.7); Basophil# 0.05 X10^3/uL; Basophil% 0.5 % (0-1); Eosinophil# 0.14 X10^3/uL; Eosinophils% 1.5 % (0-5); Hematocrit 39.3 % (40-54); Hemoglobin 12.1 g/dL (13.0-16.5); Lymphocyte # 2.25 X10^3/ul (4.0); Lymphocyte % 23.6 % (19-41); Mean Corp Hgb Conc 30.8 g/dL (32-36); Mean Corpuscular Hgb 21.4 pg (27.0-32.0); Mean Corpuscular Volume 69.4 fL (80-94); Mean Platelet Vol. 10.5 fl (6.2-12.0); Monocyte# 0.88 X10^3/uL; Monocyte% 9.2 % (0-10); NRBC Flagged by Analyzer 0 % (0-5); Platelet Count 232 K/mm3 (150-450); RBC Distribution Width CV 16.1 % (11.6-14.6); RBC Distribution Width SD 38.5 fl (35.1-43.9); Red Blood Count 5.66 M/mm3 (4.6-6.2); White Blood Count 9.5 K/mm3 (4.4-11.0)
[2020-09-16 16:14] LABS: AST(SGOT) 20 U/L (15-37); Alanine Aminotransfer ALT/SGPT 50 U/L (16-61); Albumin, Serum 3.7 g/dL (3.2-5.0); Alkaline Phosphatase 69 U/L (45-117); Anion Gap 9 (5-15); BUN 16 mg/dL (7-18); Calcium,Total 8.5 mg/dL (8.5-10.1); Chloride 110 mmol/L (98-107); Creatinine, Serum 1.14 mg/dL (0.70-1.30); EST Glomerular Filtration Rate 69 mL/min (>60); Est Glom Filt Rate - Afr Amer 84 mL/min (>60); Globulin 3.7 g/dL (2.2-4.2); Glucose 115 mg/dL (74-106); PSA,Total - Annual Screen 5.09 ng/mL (0.00-4.00); Potassium 3.8 mmol/L (3.5-5.1); Protein, Total 7.4 g/dL (6.4-8.2); Sodium Level 141 mmol/L (136-145); Thyroid Stim Hormone (TSH) 1.85 uIU/mL (0.358-3.74)
== END ==
PROVIDERS: PCP Family Medicine Geriatric Medicine; Visit Provider Family Medicine Geriatric Medicine
DX: I10 Essential (primary) hypertension (principal); Z12.5 Encounter for screening for malignant neoplasm of prostate
CPT/HCPCS: 36415; 80053; 84153; 84443; 85025; G0103

== ENCOUNTER → 2021-03-12 12:02 | Outpatient (CLI) | payer OTHER, SELFPAY ==
[2019-04-11 09:42] VITALS: BMI 39.4
[2021-03-12 17:24] LABS: Absolute Lymphocyte Count 2.11 X10^3/uL (0.83-4.51); Absolute Neutrophil Count 7.3 X10^3/uL (2.0-7.7); Basophil# 0.05 X10^3/uL; Basophil% 0.5 % (0-1); Eosinophil# 0.18 X10^3/uL; Eosinophils% 1.7 % (0-5); Hematocrit 38.9 % (40-54); Hemoglobin 11.8 g/dL (13.0-16.5); Lymphocyte # 2.11 X10^3/ul (0.83-4.51); Lymphocyte % 20.4 % (19-41); Mean Corp Hgb Conc 30.3 g/dL (32-36); Mean Corpuscular Hgb 21.1 pg (27.0-32.0); Mean Corpuscular Volume 69.7 fL (80-94); Mean Platelet Vol. 11.2 fl (6.2-12.0); Monocyte# 0.67 X10^3/uL; Monocyte% 6.5 % (0-10); NRBC Flagged by Analyzer 0.2 % (0-5); Neutrophil # 7.27 X10^3/uL (2.7-7.7); Neutrophil % 70.5 % (47-70); Platelet Count 296 K/mm3 (150-450); RBC Distribution Width CV 17.1 % (11.6-14.6); RBC Distribution Width SD 40.3 fl (35.1-43.9); Red Blood Count 5.58 M/mm3 (4.6-6.2); White Blood Count 10.3 K/mm3 (4.4-11.0)
[2021-03-12 18:13] LABS: AST(SGOT) 20 U/L (15-37); Alanine Aminotransfer ALT/SGPT 46 U/L (16-61); Albumin, Serum 3.7 g/dL (3.2-5.0); Alkaline Phosphatase 77 U/L (45-117); Anion Gap 5 (5-15); BUN 17 mg/dL (7-18); BUN/Creat Ratio 16.3 RATIO (10-20); Calcium,Total 8.9 mg/dL (8.5-10.1); Chloride 107 mmol/L (98-107); Creatinine, Serum 1.04 mg/dL (0.70-1.30); EST Glomerular Filtration Rate 77 mL/min (>60); Est Glom Filt Rate - Afr Amer 93 mL/min (>60); Globulin 3.7 g/dL (2.2-4.2); Glucose 141 mg/dL (74-106); PSA,Total - Annual Screen 5.22 ng/mL (0.00-4.00); Potassium 4.1 mmol/L (3.5-5.1); Protein, Total 7.4 g/dL (6.4-8.2); Sodium Level 139 mmol/L (136-145); Thyroid Stim Hormone (TSH) 1.46 uIU/mL (0.358-3.74)
== END ==
PROVIDERS: PCP Family Medicine Geriatric Medicine; Visit Provider Family Medicine Geriatric Medicine
DX: I10 Essential (primary) hypertension (principal); Z12.5 Encounter for screening for malignant neoplasm of prostate
CPT/HCPCS: 36415; 80053; 84153; 84443; 85025; G0103

== ENCOUNTER → 2021-04-14 | Outpatient (CLI) | payer OTHER, SELFPAY ==
--- NOTE | 2021-04-14 | IMM_PTH ---
PATIENT: FERNANDA SCHMITZ LOC: [facility] U#:[id number] AGE/SX: 61/M ROOM: RE04/14/[address]: Dr. Malik Edmondson MD : 1960 BED: DIS: 04/14/2021 SPEC #: [id number] RECD: 04/15/21 12:04 STATUS: LINDSEY REQ #: [id number] SHANNAN: 04/14/21 00:[address]: Mailk Edmondson DEPT: IMMUNOHISTOCHEMISTRY RECD BY: Jennifer Bejarano ENTERED: 04/15/21 12:05 SP TYPE: IMMUNO OTHR DR: Dr. Teodoro Olson MD Tissues: D - PROSTATE LEFT Procedures: P40 (add) 34BE12 (initial) PHYSICIAN & INSTITUTION [place] [address] SPECIMEN INFORMATION: Tissue Source: D - Left prostate, apex, core biopsy Clinical Info: R97.20 Specimen Number: [id number] CPT code: 25934, 97733 METHODOLOGY: Deparaffinized sections of prefer/formalin-fixed tissue or PAP/DQ stained slides are incubated with monoclonal/polyclonal antibodies/oligonucleotide probes. Localization is made via biotin free immunoperoxidase method. Appropriate controls are performed and reacted as expected. Results on target cell population are indicated in the following table: RESULTS: ANTIBODY / CLONE RESULT Block D P40 (BC28) positive 34BE12 (34BE12) positive These tests were developed and their performance characteristics determined by [facility]. They may not have been cleared or approved by the U.S. Food and Drug Administration. The FDA has determined that such clearance or approval is not necessary. The above immunohistochemical/dualISH markers are ordered and reviewed by the Pathologist. INTERPRETATION: [place]. Left prostate, apex, core biopsy: Negative for malignancy. SJ:maria c 04/16/2021
--- NOTE | 2021-04-14 08:00 | PROSBIL_PTH ---
PATIENT: FERNANDA SCHMITZ LOC: [facility] U#:[id number] AGE/SX: 61/M ROOM: RE04/14/[address]: Dr. Malik Edmondson MD : 1960 BED: DIS: 04/14/2021 SPEC #: [id number] RECD: 04/14/21 11:27 STATUS: LINDSEY REQ #: [id number] SHANNAN: 04/14/21 08:[address]: Malik Edmondson DEPT: SURGICAL PATHOLOGY RECD BY: Amber Soria ENTERED: 04/14/21 13:28 SP TYPE: PROST BX ALAINA DR: Dr. Teodoro Olson MD Tissues: A - PROSTATE RIGHT B - PROSTATE RIGHT C - PROSTATE RIGHT D - PROSTATE LEFT E - PROSTATE LEFT F - PROSTATE LEFT Procedures: PROSTATE BX HEADER OPERATION: Prostate biopsy PRE-OP DIAGNOSIS: R97.20 TISSUE SUBMITTED: A - Right apex, B - Right mid, C - Right base, D - Left apex, E - Left mid, F - Left base MICROSCOPIC DIAGNOSIS A. Right prostate, apex, core biopsy: Prostatic tissue, negative for malignancy. B. Right prostate, mid, core biopsy: Prostatic tissue, negative for malignancy. Focal atrophy and mild chronic inflammation. C. Right prostate, base, core biopsy: Prostatic tissue, negative for malignancy. D. Left prostate, apex, core biopsy: Prostatic tissue, negative for malignancy. See comment. E. Left prostate, mid, core biopsy: Prostatic tissue, negative for malignancy. Focal mild chronic inflammation. F. Left prostate, base, core biopsy: Prostatic tissue, negative for malignancy. SJ:rg 04/15/2021 COMMENT D. Immunohistochemistry (RF21-) supports the above diagnosis. MICROSCOPIC DESCRIPTION Slides are reviewed. GROSS DESCRIPTION A - Received is one container designated prostate, right apex. The specimen consists of one elongated fragment of light sánchez-white soft tissue measuring 0.7 cm in length and 0.1 cm in diameter. The specimen is totally submitted in one cassette. B - Received is one container designated prostate, right mid. The specimen consists of two elongated fragments of light sánchez-white soft tissue measuring 0.5 and 1.5 cm in length and 0.1 cm in diameter. The specimen is totally submitted in one cassette. C - Received is one container designated prostate, right base. The specimen consists of two elongated fragments of light sánchez-white soft tissue measuring 1.2 and 1.5 cm in length and 0.1 cm in diameter. The specimen is totally submitted in one cassette. D - Received is one container designated prostate, left apex. The specimen consists of one elongated fragment of light sánchez-white soft tissue measuring 0.7 cm in length and 0.1 cm in diameter. The specimen is totally submitted in one cassette. E - Received is one container designated prostate, left mid. The specimen consists of two elongated fragments of light sánchez-white soft tissue measuring 1 and 1.2 cm in length and 0.1 cm in diameter. The specimen is totally submitted in one cassette. F - Received is one container designated prostate, left base. The specimen consists of two elongated fragments of light sánchez-white soft tissue each measuring 1.5 cm in length and 0.1 cm in diameter. The specimen is totally submitted in one cassette. / SJ:rg 04/14/21 TC:3 CPT: 25969 x6
== END | disposition home or self-care (01) ==
LOC: LABSPEC 13:22
PROVIDERS: PCP Family Medicine Geriatric Medicine; Visit Provider Urology
DX: R97.20 Elevated prostate specific antigen [PSA] (principal)
CPT/HCPCS: 88305; 88341; 88342; G0416

== ENCOUNTER → 2021-06-26 15:18 | Outpatient (CLI) | payer OTHER, SELFPAY ==
--- NOTE | 2021-06-26 15:25 | RAD_ITS ---
STUDY: X-RAY - LUMBAR SPINE REASON FOR EXAM: Male, 61 years old. Lower back pain for years. Now worsening. Left hip pain bilateral radiculopathy. Unable to stand for long periods of time. TECHNIQUE: 3 view(s) of the lumbar spine were obtained. COMPARISON: None FINDINGS: There is straightening of the normal lumbar lordosis. There is no substantial scoliosis. There is a normal alignment of the vertebrae. There is multilevel endplate spondylosis of the lumbar vertebrae. There is multi-level degenerative disc disease with multi-level disc space narrowing. There is no evidence of acute fracture or loss of vertebral axial height. The soft tissue structures are unremarkable. RAD/Lumbar Spine 2 or 3 Views IMPRESSION: Degenerative changes lumbar spine without visualized fracture or subluxation. Electronically Signed: Hipolito Villalobos DO at 16:14 EDT Tel [phone], Service support ,
== END ==
PROVIDERS: PCP Family Medicine Geriatric Medicine; Referring Provider Family Medicine Geriatric Medicine; Visit Provider Family Medicine Geriatric Medicine
DX: M54.50 Low back pain, unspecified (principal)
CPT/HCPCS: 72100

== ENCOUNTER 2021-09-10 15:14 | Outpatient (CLI) | payer OTHER, SELFPAY ==
[2021-09-10 16:57] LABS: Absolute Lymphocyte Count 2.32 X10^3/uL (0.83-4.51); Absolute Neutrophil Count 7.2 X10^3/uL (2.0-7.7); Basophil# 0.06 X10^3/uL; Basophil% 0.6 % (0-1); Eosinophil# 0.17 X10^3/uL; Eosinophils% 1.6 % (0-5); Lymphocyte # 2.32 X10^3/ul (0.83-4.51); Lymphocyte % 22.1 % (19-41); Mean Corpuscular Hgb 21.4 pg (27.0-32.0); Mean Corpuscular Volume 71.2 fL (80-94); Mean Platelet Vol. 11.2 fl (6.2-12.0); Monocyte# 0.72 X10^3/uL; Monocyte% 6.9 % (0-10); NRBC Flagged by Analyzer 0.3 % (0-5); Neutrophil # 7.16 X10^3/uL (2.7-7.7); Neutrophil % 68.1 % (47-70); Platelet Count 266 K/mm3 (150-450); RBC Distribution Width CV 17.6 % (11.6-14.6); RBC Distribution Width SD 41.8 fl (35.1-43.9); Red Blood Count 5.62 M/mm3 (4.6-6.2); White Blood Count 10.5 K/mm3 (4.4-11.0)
[2021-09-10 17:35] LABS: ALB/GLOB Ratio 0.9 RATIO (0.9-2.4); AST(SGOT) 27 U/L (15-37); Alanine Aminotransfer ALT/SGPT 52 U/L (16-61); Albumin, Serum 3.7 g/dL (3.2-5.0); Alkaline Phosphatase 68 U/L (45-117); Anion Gap 7 (5-15); BUN 18 mg/dL (7-18); BUN/Creat Ratio 19.1 RATIO (10-20); Calcium,Total 9.1 mg/dL (8.5-10.1); Chloride 107 mmol/L (98-107); Creatinine, Serum 0.94 mg/dL (0.70-1.30); EST Glomerular Filtration Rate 86 mL/min (>60); Est Glom Filt Rate - Afr Amer 104 mL/min (>60); Glucose 108 mg/dL (74-106); PSA,Total - Annual Screen 7.74 ng/mL (0.00-4.00); Potassium 4.3 mmol/L (3.5-5.1); Protein, Total 7.7 g/dL (6.4-8.2); Sodium Level 139 mmol/L (136-145); Thyroid Stim Hormone (TSH) 1.51 uIU/mL (0.358-3.74)
== END 2021-09-10 23:59 | disposition short-term general hospital (02) ==
PROVIDERS: PCP Family Medicine Geriatric Medicine; Visit Provider Family Medicine Geriatric Medicine
DX: I10 Essential (primary) hypertension (principal); Z12.5 Encounter for screening for malignant neoplasm of prostate
CPT/HCPCS: 36415; 80053; 84153; 84443; 85025; G0103

== ENCOUNTER 2021-09-22 14:09 | Outpatient (CLI) | payer OTHER, SELFPAY ==
[2021-09-25 15:19] LABS: PSA, Free 0.94 ng/mL; PSA, Total Ultrasensitive 4.7 ng/mL (0.0-4.0)
== END 2021-09-22 23:59 | disposition short-term general hospital (02) ==
LOC: LAB 14:13
PROVIDERS: PCP Family Medicine Geriatric Medicine; Referring Provider Urology; Visit Provider Urology
DX: R97.20 Elevated prostate specific antigen [PSA] (principal)
CPT/HCPCS: 36415; 84153; 84154

== ENCOUNTER → 2022-04-01 | Outpatient (CLI) | payer OTHER, SELFPAY ==
[2022-04-01 12:06] LABS: Absolute Lymphocyte Count 1.84 X10^3/uL (0.83-4.51); Absolute Neutrophil Count 4.9 X10^3/uL (2.0-7.7); Basophil# 0.03 X10^3/uL; Basophil% 0.4 % (0-1); Eosinophil# 0.11 X10^3/uL; Eosinophils% 1.5 % (0-5); Hematocrit 41.1 % (40-54); Hemoglobin 12.7 g/dL (13.0-16.5); Lymphocyte # 1.84 X10^3/ul (0.83-4.51); Lymphocyte % 24.5 % (19-41); Mean Corp Hgb Conc 30.9 g/dL (32-36); Mean Corpuscular Hgb 21.2 pg (27.0-32.0); Mean Corpuscular Volume 68.7 fL (80-94); Monocyte# 0.61 X10^3/uL; Monocyte% 8.1 % (0-10); NRBC Flagged by Analyzer 0 % (0-5); Neutrophil % 65.1 % (47-70); Platelet Count 209 K/mm3 (150-450); RBC Distribution Width CV 17.7 % (11.6-14.6); Red Blood Count 5.98 M/mm3 (4.6-6.2); White Blood Count 7.5 K/mm3 (4.4-11.0)
[2022-04-01 12:45] LABS: ALB/GLOB Ratio 1.2 RATIO (0.9-2.4); AST(SGOT) 25 U/L (15-37); Alanine Aminotransfer ALT/SGPT 35 U/L (16-61); Albumin, Serum 3.9 g/dL (3.2-5.0); Alkaline Phosphatase 57 U/L (45-117); Anion Gap 9 (5-15); BUN 13 mg/dL (7-18); BUN/Creat Ratio 13.7 RATIO (10-20); Calcium,Total 8.8 mg/dL (8.5-10.1); Chloride 109 mmol/L (98-107); Creatinine, Serum 0.95 mg/dL (0.70-1.30); EST Glomerular Filtration Rate 85 mL/min (>60); Est Glom Filt Rate - Afr Amer 103 mL/min (>60); Globulin 3.3 g/dL (2.2-4.2); Glucose 86 mg/dL (74-106); Potassium 4.2 mmol/L (3.5-5.1); Protein, Total 7.2 g/dL (6.4-8.2); Sodium Level 140 mmol/L (136-145); Thyroid Stim Hormone (TSH) 1.15 uIU/mL (0.358-3.74)
== END | disposition home or self-care (01) ==
PROVIDERS: PCP Family Medicine Geriatric Medicine; Visit Provider Family Medicine Geriatric Medicine
DX: I10 Essential (primary) hypertension (principal)
CPT/HCPCS: 36415; 80053; 84443; 85025

== ENCOUNTER → 2022-09-28 | Outpatient (CLI) | payer OTHER, SELFPAY ==
[2022-09-28 10:55] LABS: Absolute Lymphocyte Count 1.75 X10^3/uL (0.83-4.51); Absolute Neutrophil Count 5.1 X10^3/uL (2.0-7.7); Basophil# 0.04 X10^3/uL; Basophil% 0.5 % (0-1); Eosinophil# 0.13 X10^3/uL; Eosinophils% 1.7 % (0-5); Hematocrit 41.1 % (40-54); Hemoglobin 12.8 g/dL (13.0-16.5); Lymphocyte # 1.75 X10^3/ul (0.83-4.51); Lymphocyte % 22.9 % (19-41); Mean Corp Hgb Conc 31.1 g/dL (32-36); Mean Corpuscular Hgb 21.7 pg (27.0-32.0); Mean Corpuscular Volume 69.8 fL (80-94); Mean Platelet Vol. 10.6 fl (6.2-12.0); Monocyte# 0.62 X10^3/uL; Monocyte% 8.1 % (0-10); NRBC Flagged by Analyzer 0 % (0-5); Neutrophil # 5.07 X10^3/uL (2.7-7.7); Neutrophil % 66.4 % (47-70); Platelet Count 216 K/mm3 (150-450); RBC Distribution Width CV 17.7 % (11.6-14.6); Red Blood Count 5.89 M/mm3 (4.6-6.2); White Blood Count 7.6 K/mm3 (4.4-11.0)
[2022-09-28 11:59] LABS: AST(SGOT) 18 U/L (15-37); Alanine Aminotransfer ALT/SGPT 23 U/L (16-61); Albumin, Serum 3.8 g/dL (3.2-5.0); Alkaline Phosphatase 65 U/L (45-117); Anion Gap 9 (5-15); BUN 18 mg/dL (7-18); BUN/Creat Ratio 19.8 RATIO (10-20); Chloride 109 mmol/L (98-107); Creatinine, Serum 0.91 mg/dL (0.70-1.30); EST Glomerular Filtration Rate 89 mL/min (>60); Est Glom Filt Rate - Afr Amer 108 mL/min (>60); Globulin 3.7 g/dL (2.2-4.2); Glucose 130 mg/dL (74-106); Potassium 3.8 mmol/L (3.5-5.1); Protein, Total 7.5 g/dL (6.4-8.2); Sodium Level 141 mmol/L (136-145); Thyroid Stim Hormone (TSH) 1.46 uIU/mL (0.358-3.74)
== END | disposition home or self-care (01) ==
LOC: POLAB3 09:25
PROVIDERS: PCP Family Medicine Geriatric Medicine; Visit Provider Family Medicine Geriatric Medicine
DX: I10 Essential (primary) hypertension (principal)
CPT/HCPCS: 36415; 80053; 84443; 85025

== ENCOUNTER → 2023-04-05 | Outpatient (CLI) | payer OTHER, SELFPAY ==
[2023-04-05 12:45] LABS: Absolute Lymphocyte Count 2.04 X10^3/uL (0.83-4.51); Absolute Neutrophil Count 5.9 X10^3/uL (2.0-7.7); Basophil# 0.04 X10^3/uL; Basophil% 0.5 % (0-1); Eosinophil# 0.12 X10^3/uL; Eosinophils% 1.4 % (0-5); Hematocrit 40.8 % (40-54); Hemoglobin 12.1 g/dL (13.0-16.5); Lymphocyte # 2.04 X10^3/ul (0.83-4.51); Lymphocyte % 23.3 % (19-41); Mean Corp Hgb Conc 29.7 g/dL (32-36); Mean Corpuscular Hgb 20.5 pg (27.0-32.0); Mean Platelet Vol. 10.4 fl (6.2-12.0); Monocyte# 0.62 X10^3/uL; Monocyte% 7.1 % (0-10); NRBC Flagged by Analyzer 0 % (0-5); Neutrophil # 5.91 X10^3/uL (2.7-7.7); Neutrophil % 67.5 % (47-70); Platelet Count 217 K/mm3 (150-450); RBC Distribution Width CV 16.7 % (11.6-14.6); RBC Distribution Width SD 38.8 fl (35.1-43.9); Red Blood Count 5.91 M/mm3 (4.6-6.2); White Blood Count 8.8 K/mm3 (4.4-11.0)
[2023-04-05 13:33] LABS: ALB/GLOB Ratio 0.9 RATIO (0.9-2.4); AST(SGOT) 15 U/L (15-37); Alanine Aminotransfer ALT/SGPT 26 U/L (16-61); Albumin, Serum 3.6 g/dL (3.2-5.0); Alkaline Phosphatase 63 U/L (45-117); Anion Gap 6 (5-15); BUN 15 mg/dL (7-18); BUN/Creat Ratio 17.1 RATIO (10-20); Calcium,Total 8.8 mg/dL (8.5-10.1); Chloride 108 mmol/L (98-107); Creatinine, Serum 0.88 mg/dL (0.70-1.30); EST Glomerular Filtration Rate 93 mL/min (>60); Est Glom Filt Rate - Afr Amer 113 mL/min (>60); Globulin 3.9 g/dL (2.2-4.2); Glucose 104 mg/dL (74-106); PSA,Total - Annual Screen 4.36 ng/mL (0.00-4.00); Potassium 3.9 mmol/L (3.5-5.1); Protein, Total 7.5 g/dL (6.4-8.2); Sodium Level 139 mmol/L (136-145); Thyroid Stim Hormone (TSH) 1.14 uIU/mL (0.358-3.74)
== END | disposition home or self-care (01) ==
PROVIDERS: PCP Family Medicine Geriatric Medicine; Visit Provider Family Medicine Geriatric Medicine
DX: I10 Essential (primary) hypertension (principal); R97.20 Elevated prostate specific antigen [PSA]
CPT/HCPCS: 36415; 80053; 84153; 84443; 85025; G0103

== ENCOUNTER → 2023-10-06 | Outpatient (CLI) | payer OTHER, SELFPAY ==
[2023-10-06 10:46] LABS: Absolute Lymphocyte Count 1.55 X10^3/uL (0.83-4.51); Absolute Neutrophil Count 5.5 X10^3/uL (2.0-7.7); Basophil# 0.03 X10^3/uL; Basophil% 0.4 % (0-1); Eosinophil# 0.14 X10^3/uL; Eosinophils% 1.8 % (0-5); Hematocrit 41.1 % (40-54); Hemoglobin 12.2 g/dL (13.0-16.5); Lymphocyte # 1.55 X10^3/ul (0.83-4.51); Lymphocyte % 19.8 % (19-41); Mean Corp Hgb Conc 29.7 g/dL (32-36); Mean Corpuscular Hgb 20.1 pg (27.0-32.0); Mean Corpuscular Volume 67.8 fL (80-94); Mean Platelet Vol. 11.4 fl (6.2-12.0); Monocyte# 0.59 X10^3/uL; Monocyte% 7.6 % (0-10); NRBC Flagged by Analyzer 0 % (0-5); Neutrophil # 5.48 X10^3/uL (2.7-7.7); Neutrophil % 70.1 % (47-70); Platelet Count 219 K/mm3 (150-450); RBC Distribution Width CV 15.9 % (11.6-14.6); RBC Distribution Width SD 36.9 fl (35.1-43.9); Red Blood Count 6.06 M/mm3 (4.6-6.2); White Blood Count 7.8 K/mm3 (4.4-11.0)
[2023-10-06 11:10] LABS: AST(SGOT) 18 U/L (15-37); Alanine Aminotransfer ALT/SGPT 34 U/L (16-61); Albumin, Serum 3.6 g/dL (3.2-5.0); Alkaline Phosphatase 70 U/L (45-117); Anion Gap 6 (5-15); BUN 15 mg/dL (7-18); BUN/Creat Ratio 15.5 RATIO (10-20); Calcium,Total 8.9 mg/dL (8.5-10.1); Chloride 110 mmol/L (98-107); Creatinine, Serum 0.97 mg/dL (0.70-1.30); EST Glomerular Filtration Rate 83 mL/min (>60); Est Glom Filt Rate - Afr Amer 100 mL/min (>60); Globulin 3.7 g/dL (2.2-4.2); Glucose 138 mg/dL (74-106); Potassium 4.1 mmol/L (3.5-5.1); Protein, Total 7.3 g/dL (6.4-8.2); Sodium Level 140 mmol/L (136-145)
[2023-10-06 14:52] LABS: PSA,Total- Diagnostic 3.38 ng/mL (0.0-4.0)
== END | disposition home or self-care (01) ==
LOC: POLAB3 09:09
PROVIDERS: PCP Family Medicine Geriatric Medicine; Visit Provider Family Medicine Geriatric Medicine
DX: R97.20 Elevated prostate specific antigen [PSA] (principal); I10 Essential (primary) hypertension
CPT/HCPCS: 36415; 80053; 84153; 84443; 85025

== ENCOUNTER → 2023-10-10 | Outpatient (CLI) | payer OTHER, SELFPAY ==
--- OUTSIDE RECORDS SUMMARY | 2023-10-10 08:31 | XMS RPT_ITS | CCD ---
Author Name Unknown Address [address] [place] [address] Organization [facility] Care Team Providers Care Fitness Coach Name Role Phone PROSPER BECERRA Attending Unavailable REFERRED, SELF Referring Unavailable REFERRED, SELF Primary Care Unavailable BIGG HERMAN DO Primary Care Physician [phone] JULIO JOHNSON, DR DANG Attending Unavailable BIGG HERMAN DO Primary Care Unavailable Allergies Allergy Classification Reported Allergen(s) Allergy Type Date of Onset Reaction(s) Facility (1 source) Vancomycin; Translations: [vancomycin] Drug Allergy [facility] Medications Current Medications Medication Drug Class(es) Dates Sig (Normalized) Sig (Original) docusate sodium 50 mg / sennosides, correction 8.6 mg oral tablet (1 source) Start: 11-08-2018 take 1 tablet by mouth twice daily docusate-senna 50 mg-8.6 mg oral tablet Dose = 2 tab(s), Oral, BID, 0 Refill(s) Start Date: 11/08/18 Status: Ordered finasteride 5 mg oral tablet (1 source) 5-alpha Reductase Inhibitor Start: 11-08-2018 finasteride 5 mg oral tablet Dose : 5 mg = 1 tab(s), Oral, qDay, 0 Refill(s) Start Date: 11/08/18 Status: Ordered Lopressor (1 source) beta-Adrenergic [place] Start: 11-08-2018 Lopressor Dose : 12.5 mg = 0.5 tab(s), Oral, BIDM, 0 Refill(s) Start Date: 11/08/18 Status: Ordered traZODone hydrochloride 50 mg oral tablet (1 source) Serotonin Reuptake Inhibitor Start: 11-08-2018 traZODone 50 mg oral tablet Dose : 50 mg = 1 tab(s), Oral, qHS, # 30 tab(s), 0 Refill(s) Start Date: 11/08/18 Status: Ordered Completed/Discontinued Medications Medication Drug Class(es) Dates Sig (Normalized) Sig (Original) heparin 5000 units/mL injection (1 source) Start: 11-08-2018 inject 1 mL by subcutaneous injection every eight hours heparin 5000 units/mL injection Dose : 5,000 unit(s) = 1 mL, Subcutaneous, q8h, 0 Refill(s) Start Date: 11/08/18 Status: Ordered tamsulosin hydrochloride 0.4 mg oral capsule (1 source) alpha-Adrenergic [place] Start: 11-06-2018 End: 12-06-2018 tamsulosin 0.4 mg oral capsule Dose : 0.4 mg = 1 cap(s), Oral, qDayPC, # 30 cap(s), 0 Refill(s) Start Date: 11/06/18 Stop Date: 12/06/18 Status: Ordered Problems Problem Classification Problem Date Documented Da te Episodic/Chronic Hyperplasia of prostate (1 source) Benign prostatic hyperplasia 11-06-2018 Chronic Results Test Name Value Interpretation Reference Range Facil ity Encounters Encounter Date Encounter Type Care Provider Facility Start: 02-03-2023 End: 02-04-[address] ALTON KIM MD Facility:B Start: 02-03-2023 End: 02-03-[address] ALTON KIM MD [facility] Start: 01-04-2023 End: 01-04-2023 ambulatory PROSPER [facility] Procedures Date Procedure Procedure Detail Performing Clinician Rotator cuff includi ng muscles and tendons (body structure) DR ALTON KIM MD Septum of frontal si nuses (body structure) DR ALTON KIM MD Immunizations Immunization Date Immunization Notes Care Provider Fa cility 11-24-2020 COVID-19, mRNA, LNP- S, PF, 100 mcg or 50 mcg dose; Translations: [Moderna COVID-19 Vaccine] DR ALTON KIM MD [facility] 10-27-2020 COVID-19, mRNA, LNP- S, PF, 100 mcg or 50 mcg dose; Translations: [Moderna COVID-19 Vaccine] DR ALTON KIM MD [facility] 11-08-2018 influenza, injectabl e, quadrivalent, preservative free DR ALTON KIM MD [facility] Payers Date Payer Category Payer Private Health Insurance [id number] 1960 Unknown [id number] 1960 Unknown [id number] Social History Date Type Detail Facility Start: 09-27-2018 Tobacco smoking status Ex-smoker (fi nding) [facility] Sex Assigned At Male [facility] Evaluation + Plan note Note Date & Type Note Facility Evaluation + Plan note No data available for this section [facility] Hospital Discharge instructions Note Date & Type Note Facility Hospital Discharge instructions No data available for this section [facility] Progress note Note Date & Type Note Facility Progress note No data available for this section [facility] Summary Purpose Family History No Family History Records FoundNo Family History Records Found Advance Directives No Advanced Directives Records FoundNo Advanced Directives Records Found Additional Source Comments (unrecognized sect ion and content) No Status Records FoundNo Status Records Found INFORMATION SOURCE (unrecogn ized section and content) DATE CREATED AUTHOR AUTHOR'S ORGANIZ ATION 02/09/2023 [facility] ([place]) Patient Care team informatio n (unrecognized section and content) Care Team Personnel Name: BIGG HERMAN DO Position: P4 Physician - Primary Care Member Role: Primary Care Physician Address: Address: [address] [place] [address]- Care Team Related Persons Name: NONE, FOR RECORDS PERTAINING TO PATIENTS WHO ARE OR HAVE BEEN ENROLLED IN A CHEMICAL DEPENDENCY/SUBSTANCEABUSE PROGRAM, SOME INFORMATION MAY BE OMITTED. This clinical summary was aggregated from multiple sources. Caution should be exercised in using it in the provision of clinical care. This summary normalizes information from multiple sources, and as a consequence, information in this document may materially change the coding, format and clinical context of patient data. In addition, data may be omitted in some cases. CLINICAL DECISIONS SHOULD BE BASED ON THE PRIMARY CLINICAL RECORDS. [facility]. provides no warranty or guarantee of the accuracy or completeness of information in this document.
== END | disposition home or self-care (01) ==
LOC: PSN 08:11
PROVIDERS: PCP Family Medicine Geriatric Medicine; Referring Provider Family Medicine Geriatric Medicine; Visit Provider Family Medicine Geriatric Medicine
DX: R06.02 Shortness of breath (principal)
CPT/HCPCS: 94060; 94726; 94729

== ENCOUNTER → 2023-11-24 | Outpatient (CLI) | payer OTHER, SELFPAY ==
--- NOTE | 2023-11-24 07:53 | ECHOCS_ITS ---
Version 2 Reason For Study: SOB Procedure This was a 2D Doppler, Color Flow transthoracic echocardiogram. The study was technically difficult. Contrast injection was performed. Exam performed in department. Left Ventricle Normal LV size. Left ventricular systolic function is normal. The estimated ejection fraction is 55 %. Stage 1 diastolic dysfunction. No regional wall motion abnormalities noted. Right Ventricle Normal RV size. Normal systolic function. Atria The left atrium is moderately enlarged. Normal right atrium. Mitral Valve Normal mitral valve. Tricuspid Valve Normal tricuspid valve. Aortic Valve Trisinus/trileaflet aortic valve. Pulmonic Valve The pulmonic valve is not well visualized. Great Vessels Normal aortic root. The pulmonary artery is normal size. Inferior vena cava collapse with respiration. Pericardium/Pleural No pericardial effusion. Medication 22 gauge I.V. with prn adaptor inserted into left arm. Diluted definity 3ml given slow IV push to enhance endocardial definition. MMode/2D Measurements & Calculations LVIDd: 4.2 cm IVSd: 0.91 cm Ao root diam: 3.6 cm LVIDs: 3.3 cm LVPWd: 1.1 cm LA dimension: 4.3 cm FS: 22.6 % LAV(MOD-bp): 78.7 ml LVAd ap4: 39.0 cm2 SV(MOD-sp4): 76.5 ml LAV(MOD-bp) Indexed: 32.0 ml/m2 LVLd ap4: 8.8 cm LAV(MOD-sp2): 71.7 ml EDV(MOD-sp4): 143.9 ml LAV(MOD-sp4): 77.7 ml EDV(sp4-el): 147.4 ml LVAs ap4: 24.8 cm2 LVLs ap4: 7.4 cm ESV(MOD-sp4): 67.4 ml ESV(sp4-el): 70.5 ml EF(MOD-sp4): 53.2 % EF(sp4-el): 52.2 % SV(sp4-el): 76.9 ml LA A4 area: 25.9 cm2 RA A4 area: 17.8 cm2 Time Measurements MV dec time: 0.30 sec Doppler Measurements & Calculations MV E max esvin: 47.1 cm/sec Lat Peak E' Esvin: 8.3 cm/sec Med Peak E' Esvin: 7.4 cm/sec MV A max esvin: 57.5 cm/sec E/E' lat: 5.7 E/E' med: 6.4 MV E/A: 0.82 MV V2 max: 75.0 cm/sec MV P1/2t max esvin: 63.4 cm/sec Ao V2 max: 125.0 cm/sec MV max P.2 mmHg MV P1/2t: 115.8 msec Ao max P.3 mmHg MV V2 mean: 33.4 cm/sec MV mean P.56 mmHg MV dec slope: 160.3 cm/sec2 MV V2 VTI: 29.2 cm MVA(P1/2t): 1.9 cm2 LV V1 max: 123.4 cm/sec PA V2 max: 103.5 cm/sec LV V1 max P.1 mmHg PI dec slope: 84.1 cm/sec2 ECHO/Echo Complete W/ Contrast Interpretation Summary Normal LV size. Left ventricular systolic function is normal. The estimated ejection fraction is 55 %. Stage 1 diastolic dysfunction. Contrast injection was performed. Ordering Physician: Teodoro Olson Chi Referring Physician: Teodoro Olson Chi Performed By: Leonides Crawford RCS
== END | disposition home or self-care (01) ==
LOC: CVS 07:52
PROVIDERS: PCP Family Medicine Geriatric Medicine; Referring Provider Family Medicine Geriatric Medicine; Visit Provider Family Medicine Geriatric Medicine
DX: R06.02 Shortness of breath (principal)
CPT/HCPCS: 93306; Q9957; A4216; C8929

== ENCOUNTER → 2024-04-09 | Outpatient (CLI) | payer MEDICARE, SELFPAY ==
[2024-04-09 10:23] LABS: Vitamin D,25 Hydroxy 31.8 ng/mL
[2024-04-09 10:24] LABS: Absolute Neutrophil Count 5.8 X10^3/uL (2.0-7.7); Basophil# 0.05 X10^3/uL; Basophil% 0.6 % (0-1); Eosinophil# 0.14 X10^3/uL; Eosinophils% 1.7 % (0-5); Hematocrit 40.9 % (40-54); Hemoglobin 12.4 g/dL (13.0-16.5); Lymphocyte % 19.6 % (19-41); Mean Corp Hgb Conc 30.3 g/dL (32-36); Mean Corpuscular Hgb 20.2 pg (27.0-32.0); Mean Corpuscular Volume 66.6 fL (80-94); Mean Platelet Vol. 10.3 fl (6.2-12.0); Monocyte# 0.56 X10^3/uL; Monocyte% 6.8 % (0-10); NRBC Flagged by Analyzer 0 % (0-5); Neutrophil % 70.9 % (47-70); Platelet Count 205 K/mm3 (150-450); RBC Distribution Width CV 17.7 % (11.6-14.6); RBC Distribution Width SD 36.9 fl (35.1-43.9); Red Blood Count 6.14 M/mm3 (4.6-6.2); White Blood Count 8.2 K/mm3 (4.4-11.0)
[2024-04-09 10:32] LABS: AST(SGOT) 16 U/L (15-37); Alanine Aminotransfer ALT/SGPT 26 U/L (16-61); Albumin, Serum 3.5 g/dL (3.2-5.0); Alkaline Phosphatase 61 U/L (45-117); Anion Gap 5 (5-15); BUN 19 mg/dL (7-18); BUN/Creat Ratio 20.5 RATIO (10-20); Calcium,Total 8.9 mg/dL (8.5-10.1); Chloride 110 mmol/L (98-107); Creatinine, Serum 0.93 mg/dL (0.70-1.30); EST Glomerular Filtration Rate 87 mL/min (>60); Est Glom Filt Rate - Afr Amer 105 mL/min (>60); Globulin 3.6 g/dL (2.2-4.2); Glucose 139 mg/dL (74-106); Potassium 3.7 mmol/L (3.5-5.1); Protein, Total 7.1 g/dL (6.4-8.2); Sodium Level 140 mmol/L (136-145)
[2024-04-10 18:19] LABS: Hemoglobin A1c 5.7 % (3.8-5.6)
== END | disposition home or self-care (01) ==
LOC: POLAB3 08:58
PROVIDERS: PCP Family Medicine Geriatric Medicine; Visit Provider Family Medicine Geriatric Medicine
DX: E55.9 Vitamin D deficiency, unspecified (principal); I10 Essential (primary) hypertension; Z12.5 Encounter for screening for malignant neoplasm of prostate; R73.9 Hyperglycemia, unspecified
CPT/HCPCS: 36415; 80053; 82306; 83036; 84443; 85025

== ENCOUNTER → 2024-10-04 | Outpatient (CLI) | payer MEDICARE, OTHER, SELFPAY ==
[2024-10-04 10:54] LABS: Absolute Lymphocyte Count 1.72 X10^3/uL (0.83-4.51); Absolute Neutrophil Count 6.7 X10^3/uL (2.0-7.7); Basophil# 0.06 X10^3/uL; Basophil% 0.6 % (0-1); Eosinophil# 0.13 X10^3/uL; Eosinophils% 1.4 % (0-5); Hemoglobin 12.8 g/dL (13.0-16.5); Lymphocyte # 1.72 X10^3/ul (0.83-4.51); Lymphocyte % 18.3 % (19-41); Mean Corp Hgb Conc 30.5 g/dL (32-36); Mean Corpuscular Hgb 21.1 pg (27.0-32.0); Mean Corpuscular Volume 69.2 fL (80-94); Mean Platelet Vol. 10.2 fl (6.2-12.0); Monocyte# 0.71 X10^3/uL; Monocyte% 7.5 % (0-10); NRBC Flagged by Analyzer 0.2 % (0-5); Neutrophil # 6.74 X10^3/uL (2.7-7.7); Neutrophil % 71.7 % (47-70); Platelet Count 228 K/mm3 (150-450); RBC Distribution Width CV 18.5 % (11.6-14.6); RBC Distribution Width SD 40.5 fl (35.1-43.9); Red Blood Count 6.07 M/mm3 (4.6-6.2); White Blood Count 9.4 K/mm3 (4.4-11.0)
[2024-10-04 11:26] LABS: Vitamin D,25 Hydroxy 6.7 ng/mL
[2024-10-04 11:30] LABS: ALB/GLOB Ratio 0.9 RATIO (0.9-2.4); AST(SGOT) 24 U/L (15-37); Alanine Aminotransfer ALT/SGPT 34 U/L (16-61); Albumin, Serum 3.6 g/dL (3.2-5.0); Alkaline Phosphatase 69 U/L (45-117); Anion Gap 5 (5-15); BUN 18 mg/dL (7-18); Calcium,Total 8.9 mg/dL (8.5-10.1); Chloride 109 mmol/L (98-107); Creatinine, Serum 1.06 mg/dL (0.70-1.30); EST Glomerular Filtration Rate 74 mL/min (>60); Est Glom Filt Rate - Afr Amer 90 mL/min (>60); Globulin 3.9 g/dL (2.2-4.2); Glucose 103 mg/dL (74-106); Potassium 4.1 mmol/L (3.5-5.1); Protein, Total 7.5 g/dL (6.4-8.2); Sodium Level 140 mmol/L (136-145)
== END | disposition home or self-care (01) ==
PROVIDERS: PCP Family Medicine Geriatric Medicine; Referring Provider Family Medicine Geriatric Medicine; Visit Provider Family Medicine Geriatric Medicine
DX: I10 Essential (primary) hypertension (principal); E55.9 Vitamin D deficiency, unspecified
CPT/HCPCS: 36415; 80053; 82306; 84443; 85025

== ENCOUNTER → 2024-11-19 | Outpatient (CLI) | payer MEDICARE, OTHER, SELFPAY ==
--- NOTE | 2024-11-19 10:32 | CDU_ITS ---
Reason For Study Reason For Study: Syncope and collapse Rt. Velocities/BP Lt. Velocities/BP Prox CCA 50.9/7.2 cm/sec. Prox CCA 80.6/15.4 cm/sec. Mid CCA 53.5/9.9 cm/sec. Mid CCA 70.2/19.2 cm/sec. Dist CCA 40.4/9 cm/sec. Dist CCA 45.6/14.5 cm/sec. Prox ICA 44.7/12.6 cm/sec. Prox ICA 61.7/20.1 cm/sec. Mid ICA 81.5/24.8 cm/sec. Mid ICA 84.4/23.9 cm/sec. Dist ICA 71.3/23.9 cm/sec. Dist ICA 85.3/27.7 cm/sec. Rt. ICA/CCA = 1.52. Lt. ICA/CCA = 1.22. Prox ECA 93.8/8.8 cm/sec. Prox ECA 70.2/6.9 cm/sec. Rt. Vert. 51.3/10.7 cm/sec. Lt. Vert. 45.6/12.6 cm/sec. Right Extracranial There is homogeneous, smooth atherosclerotic plaque noted in the right common carotid artery. There is heterogeneous, irregular atherosclerotic plaque noted in the right internal carotid artery. There is homogeneous, smooth atherosclerotic plaque noted in the right external carotid artery. Antegrade flow is noted in the right vertebral artery. Left Extracranial There is homogeneous, smooth atherosclerotic plaque noted in the left common carotid artery. There is heterogeneous, irregular atherosclerotic plaque noted in the left internal carotid artery. There is intimal thickening but no significant atherosclerotic plaque noted in the left external carotid artery. Antegrade flow is noted in the left vertebral artery. Procedure Carotid Duplex 13393. This is a Carotid Duplex examination using B-mode, color flow and specral Doppler. Exam performed in department. VL/Carotid Duplex Ultrasound Interpretation Summary Mild (<50%) stenosis right extracranial internal carotid. Mild (<50%) stenosis left extracranial internal carotid. Flow within the vertebral arteries is antegrade bilaterally. Ordering Physician: Teodoro Olson Chi Referring Physician: Teodoro Olson Chi Performed By: Marta Power RVT
== END | disposition home or self-care (01) ==
PROVIDERS: PCP Family Medicine Geriatric Medicine; Referring Provider Family Medicine Geriatric Medicine; Visit Provider Family Medicine Geriatric Medicine
DX: R55 Syncope and collapse (principal)
CPT/HCPCS: 93880

== ENCOUNTER → 2025-02-08 | Outpatient (CLI) | payer MEDICARE, OTHER, SELFPAY ==
[2025-02-08 11:59] LABS: Anion Gap 12 (5-15); BUN 11 mg/dL (4-19); BUN/Creat Ratio 11.7 RATIO (10-20); Calcium,Total 8.9 mg/dL (7.6-11.0); Carbon Dioxide 21.7 mmol/L (21.0-32.0); Chloride 107 mmol/L (98-108); Creatinine, Serum 0.95 mg/dL (0.70-1.20); EST Glomerular Filtration Rate 88 (>60); Glucose 100 mg/dL (70-99); Potassium 4.4 mmol/L (3.3-5.1); Sodium Level 141 mmol/L (133-145)
--- OUTSIDE RECORDS SUMMARY | 2025-02-08 14:33 | XMS RPT_ITS | CCD ---
Author Organization [facility] CliniSyme Care Team Providers Care Stapler Machine Name Role Phone PROSPER BECERRA Attending Unavailable REFERRED, SELF Referring Unavailable REFERRED, SELF Primary Care Unavailable BIGG HERMAN DO Primary Care Physician [phone] JULIO JOHNSON, DR DANG Attending Unavailable BIGG HERMAN DO Primary Care Unavailable Julio, Dr. Teodoro Drake Primary Care Provider Dr. Micheal Rueda Attending Provider Julio JOHNSON, Dr. Teodoro Drake Primary Care Provider Julio JOHNSON, Dr. Teodoro Drake Attending Provider Julio JOHNSON, Dr. Teodoro Drake Referring Provider Mohit JOHNSON, Dr. Burton Attending Provider Kalyan JOHNSON, Dr. Steven Marks Attending Provider Arun Mims Attending Provider Micheal Rueda Attending Unavailable Julio, Teodoro Chi Referring Unavailable Julio, Teodoro Chi Primary Care Unavailable Arun Cross Attending Unavailable Julio, Teodoro Chi Referring Unavailable Julio, Teodoro Chi Primary Care Unavailable Arun Cross Attending Unavailable Julio, Teodoro Chi Referring Unavailable Julio, Teodoro Chi Primary Care Unavailable Julio, Teodoro Chi Attending Unavailable Julio, Teodoro Chi Referring Unavailable Julio, Teodoro Chi Primary Care Unavailable Julio, Teodoro Chi Attending Unavailable Julio, Teodoro Chi Referring Unavailable Julio, Teodoro Chi Primary Care Unavailable Julio, Teodoro Chi Attending Unavailable Julio, Teodoro Chi Primary Care Unavailable Allergies Allergy Classification Reported Allergen(s) Allergy Type Date of Onset Reaction(s) Facility (9 sources) Vancomycin; Translations: [vancomycin] Drug Allergy 04-11-2019 [facility] Comment on above: rash (1 source) Vancomycin Drug Allergy 01-29-2025 [facility] Repository Medications Current Medications Medication Drug Class(es) Dates Sig (Normalized) Sig (Original) citalopram 20 mg oral tablet (6 sources) Serotonin Reuptake Inhibitor Start: 10-11-2024 take 1 tablet by mouth once daily Citalopram 20 mg tablet Active 20 mg PO daily October 11, 2024 9:35am Start: 10-11-2024 End: 10-11-2024 Citalopram 20 mg tablet Disc ontinued 30 mg PO daily October 11, 2024 1:00am October 11, 2024 9:36am dutasteride 0.5 mg oral capsule (3 sources) 5-alpha Reductase Inhibitor Start: 10-11-2024 take 1 capsule by mouth once daily Dutasteride 0.5 mg capsule Active 0.5 mg PO daily October 11, 2024 1:00am lisinopril 40 mg oral tablet (14 sources) Angiotensin Converting Enzyme Inhibitor Start: 01-29-2025 take 1 tablet by mouth once daily Lisinopril 40 mg tablet Active 40 mg PO DAILY January 29, 2025 9:39am Start: 01-04-2025 End: 01-29-2025 take 1 tablet by mouth once daily Lisinopril 20 mg tablet Discontinued 20 mg PO DAILY January 04, 2025 9:33am January 29, 2025 9:39am to start 04/04/19 Start: 11-21-2024 End: 01-04-2025 take 1 tablet by mouth once daily Lisinopril 10 mg tablet Discontinued 10 mg PO DAILY November 21, 2024 10:54am January 04, 2025 9:34am to start 04/04/19 Start: 04-04-2019 End: 11-21-2024 take 1 tablet by mouth once daily Lisinopril 20 MG tablet Discontinued 20 mg PO DAILY April 04, 2019 12:00am November 21, 2024 10:55am to start 04/04/19 Multivitamin With Minerals (5 sources) Start: 04-04-2019 Multivitamin W ith Minerals Active 1 EACH PO DAILY April 03, 2019 11:00pm Start: 04-04-2019 Multivitamin W ith Minerals Active 1 EACH PO DAILY April 04, 2019 12:00am traZODone hydrochloride 50 mg oral tablet (1 source) Serotonin Reuptake Inhibitor Start: 11-08-2018 traZODone 50 mg oral tablet Dose : 50 mg = 1 tab(s), Oral, qHS, # 30 tab(s), 0 Refill(s) Start Date: 11/08/18 Status: Ordered Completed/Discontinued Medications Medication Drug Class(es) Dates Sig (Normalized) Sig (Original) ciprofloxacin 500 mg oral tablet (8 sources) Quinolone Antimicrobial Start: 04-11-2019 End: 10-11-2024 take 1 tablet by mouth twice daily Ciprofloxacin Hcl 500 MG tablet Discontinued 500 mg PO TWICE A DAY April 11, 2019 12:00am October 11, 2024 9:34am docusate sodium 50 mg / sennosides, senior living 8.6 mg oral tablet (9 sources) Start: 11-08-2018 End: 11-15-2018 Sennosides-Docusat e Sodium 1 EACH tablet Discontinued 2 {tbl} PO TWICE A DAY November 08, 2018 12:00am November 15, 2018 8:21pm Start: 11-08-2018 End: 11-15-2018 take 2 tablets by mouth twice daily Sennosides-Docusate Sodium Discontinued 2 TABLET PO TWICE A DAY November 08, 2018 12:00am November 15, 2018 8:21pm doxepin hydrochloride 25 mg oral capsule (8 sources) Tricyclic Antidepressant Start: 04-04-2019 End: 10-11-2024 take 1 capsule by mouth at bedtime Doxepin 25 MG capsule Discontinued 25 mg PO AT BEDTIME April 04, 2019 12:00am October 11, 2024 9:35am finasteride 5 mg oral tablet (17 sources) 5-alpha Reductase Inhibitor Start: 11-08-2018 End: 10-11-2024 take 1 tablet by mouth once daily Finasteride 5 MG tablet Discontinued 5 mg PO DAILY November 15, 2018 8:21pm October 11, 2024 9:35am heparin sodium, porcine 5000 unt/ml injectable solution (8 sources) Unfractionated Heparin, Anti-coagulant Start: 11-08-2018 End: 11-15-2018 Heparin (Porcine) 5,000 UNITS/ML syringe Discontinued 5000 U SC EVERY 8 HOURS November 08, 2018 12:00am November 15, 2018 8:21pm Start: 11-08-2018 End: 11-15-2018 Heparin (Porcine) Discontinu ed 5000 UNITS SC EVERY 8 HOURS November 08, 2018 12:00am November 15, 2018 8:21pm heparin 5000 units/mL injection (1 source) Start: 11-08-2018 inject 1 mL by subcutaneous injection every eight hours heparin 5000 units/mL injection Dose : 5,000 unit(s) = 1 mL, Subcutaneous, q8h, 0 Refill(s) Start Date: 11/08/18 Status: Ordered hydroCHLOROthiazide 12.5 mg / lisinopril 20 mg oral tablet (3 sources) Thiazide Diuretic, Angiotensin Converting Enzyme Inhibitor Start: 10-11-2024 End: 10-11-2024 Lisinopril-Hydroc hlorothiazide 20-12.5 mg tablet Discontinued 1 {tbl} PO daily October 11, 2024 1:00am October 11, 2024 9:37am metoprolol tartrate 25 mg oral tablet (17 sources) beta-Adrenergic Rancho Start: 11-08-2018 Lopressor Dose : 12.5 mg = 0.5 tab(s), Oral, BIDM, 0 Refill(s) Start Date: 11/08/18 Status: Ordered Start: 11-08-2018 End: 11-21-2024 Metoprolol Tartrate 25 MG ta blet Discontinued 12.5 mg PO TWICE A DAY November 15, 2018 8:21pm November 21, 2024 10:54am Start: 11-08-2018 End: 11-15-2018 take 12.5 mg by mouth twice daily Metoprolol Tartrate Active 12.5 MG PO TWICE A DAY November 15, 2018 8:21pm Multivitamin With Minerals 1 EACH tablet (3 sources) Start: 04-04-2019 End: 11-21-2024 take 1 tablet by mouth once daily Multivitamin With Minerals 1 EACH tablet Discontinued 1 NMA PO DAILY April 04, 2019 12:00am November 21, 2024 10:25am tamsulosin hydrochloride 0.4 mg oral capsule (17 sources) alpha-Adrenerg ic Rancho Start: 11-06-2018 End: 10-11-2024 take 1 capsule by mouth once daily Tamsulosin (Flomax) 0.4 MG capsule Discontinued 0.4 mg PO DAILY@1730 30 November 15, 2018 8:21pm October 11, 2024 9:36am Problems Problem Classification Problem Date Documented Date Episodic/Chronic Anxiety disorders (8 sources) Anxiety; Translations: [Anxiety disorder, unspecified] 04-11-2019 Chronic Bacterial infection; unspecified site (8 sources) Methicillin resistant Staphylococcus aureus infection; Translations: [Methicillin resistant Staphylococcus aureus infection, unspecified site] 04-11-2019 Episodic Cardiac dysrhythmias (9 sources) Atrial fibrillation; Translations: [Unspecified atrial fibrillation] Onset: 11-21-2024 04-11-2019 Chronic Cardiac dysrhythmias (3 sources) Palpitations; Translations: [Palpitations] 01-07-2025 Episodic Chronic ulcer of skin (16 sources) Pressure ulcer of buttock stage 3; Translations: [Pressure ulcer of right buttock, stage 3] 04-11-2019 Chronic Diabetes mellitus without complication (3 sources) Hyperglycemia; Translations: [Hyperglycemia, unspecified] 10-11-2024 Episodic Disorders of lipid metabolism (4 sources) Hyperlipidemia; Translations: [Hyperlipidemia, unspecified] Onset: 11-21-2024 10-11-2024 Chronic Essential hypertension (10 sources) Essential hypertension; Translations: [Essential (primary) hypertension] Onset: 01-29-2025 10-11-2024 Chronic Genitourinary symptoms and ill-defined conditions (8 sources) Retention of urine; Translations: [Retention of urine, unspecified] 04-11-2019 Episodic Hyperplasia of prostate (17 sources) Benign prostatic hyperplasia; Translations: [Benign prostatic hyperplasia without lower urinary tract symptoms] 11-06-2018 Chronic Influenza (8 sources) Influenza; Translations: [Influenza due to unidentified influenza virus with other respiratory manifestations] 04-11-2019 Episodic Mood disorders (3 sources) Major depressive disorder; Translations: [Major depressive disorder, single episode, unspecified] 10-11-2024 Chronic Nutritional deficiencies (4 sources) Vitamin D deficiency; Translations: [Vitamin D deficiency, unspecified] Onset: 04-22-2024 10-11-2024 Chronic Other lower respiratory disease (3 sources) Dyspnea; Translations: [Shortness of breath] 10-11-2024 Episodic Other nutritional; endocrine; and metabolic disorders (3 sources) Obesity; Translations: [Obesity, unspecified] 10-11-2024 Chronic Other screening for suspected conditions (not mental disorders or infectious disease) (8 sources) Raised prostate specific antigen; Translations: [Elevated prostate specific antigen [PSA]] 04-11-2019 Episodic Pneumonia (except that caused by tuberculosis or sexually transmitted disease) (8 sources) Pneumonia; Translations: [Pneumonia, unspecified organism] 04-11-2019 Episodic Residual codes; unclassified (8 sources) Obstructive sleep apnea syndrome; Translations: [Obstructive sleep apnea (adult) (pediatric)] 04-11-2019 Chronic Respiratory failure; insufficiency; arrest (adult) (16 sources) Acute respiratory failure; Translations: [Acute respiratory failure, unspecified whether with hypoxia or hypercapnia] 04-11-2019 Episodic Syncope (10 sources) Syncope; Translations: [Syncope and collapse] Onset: 11-22-2024 10-11-2024 Episodic Results Test Name Value Interpretation Reference Range Facility Cardiology Visit Reporton Cardiology Visit Report [facility] [address] [place] [address] OFFICE VISIT Date of Service: 01/29/25 MR#: [id number] Acct: [id number] Name: FERNANDA MCDONALD Rep #: [id number] : 1960 Provider: CRESCENCIO Sanders Age/Sex: 64/M [place] [facility] Status: Signed HPI HPI History of Present Illness Details: Fernanda Mcdonald is a 64-year-old male who presents to office today for follow-up for monitoring of his cardiovascular health. Patient has a history of benign prostatic hyperplasia and hypertension. In 2018, patient was admitted for ARDS and developed atrial fibrillation and it appears that he was put on a beta-rancho at that time. He presented to our office in November 2024 with concerns of near syncope. He had previously been on tamsulosin and finasteride for his prostate. Patient did see neurology for his near syncope concerns who did not think it was neurological problem. His symptoms were felt to be orthostatic related and his antihypertensive agents were decreased and beta-rancho was discontinued. His symptoms of near syncope significantly improved with this medication adjustment; however, he then experienced hypertension. At his last appointment, approximately 4 weeks ago, his lisinopril was increased to 20 mg daily. Patient monitored his blood pressure at home and presented readings that averaged with systolic BP in the 160s and diastolic 70s???80s. He did have a few readings 120s/80s and also a few readings 170s/90s. He reports an episode last night in which he experienced severe headache with night sweats and noted to have elevated BP of 177/91. His heart rate averages in the 50s. He has chronic dyspnea on exertion, fatigue, weakness that he relates to his prolonged hospitalization causing deconditioning in 2019. He denies any recurrence of his episode of palpitations that he experienced/reported last visit. Lightheadedness is barely noticeable since discontinuing his metoprolol. Further ROS below. 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 Gas Required: No Accompanied by: Self Is patient in pain?: No Allergies vancomycin Allergy (Verified 01/29/25 08:46) Unknown Medications ???Medication ???Instructions ???Recorded ???Confirmed ???Type citalopram 20 mg tablet 20 mg PO QDAY 10/11/24 01/29/25 Hi story dutasteride 0.5 mg capsule 0.5 mg PO QDAY 10/11/24 01/29/25 H istory lisinopril 40 mg tablet 40 mg PO DAILY #90 tabs 01/29/25 0 01/29/25 Rx Have you fallen in the past year?: No PFSH Medical History History of deviated nasal septum Hyperglycemia Essential (primary) hypertension Major depressive disorder Vitamin D deficiency Hyperlipidemia SOB (shortness of breath) Obesity Syncope Anxiety Obstructive sleep apnea Elevated PSA Benign prostatic hyperplasia New onset atrial fibrillation Surgical History Hx of repair of rotator cuff Family History Father Diabetes TIA (transient ischemic attack) Hyperlipidemia Social History Smoking Status: Former smoker ROS Const Const: Positive for headache(s) (one episode last night) and night sweats (one episode last night); Negative for fatigue, weakness, frequent falls or weight gain Eyes Eyes: Negative for blurry vision or change in vision ENT ENT: Positive for headache(s) (one episode last night); Negative for dizziness or Nosebleed/epistaxis Cardio Chest Pain: No Palpitations: No Edema: None Muscle aches with walking: None Resp Respiratory: Positive for SOB with activity; Negative for SOB at rest or SOB orthopnea SOB lying down GI GI: Negative nausea, vomiting, bright, red blood in stools or black,tarry stools : Negative for hematuria Musc Musc: Negative for muscle aches/ myalgia Neuro Neuro: Positive for headache(s) (one episode last night); Negative for dizziness, frequent falls, weakness or blurry vision Endo Endo: Negative for fatigue Cardiology Exam Const Appearance: cooperative, comfortable, no acute distress and well developed; Negative diaphoretic or ill appearing Nutritional Appearance: obese Orientation: alert and oriented x3 Ambulating without assistive device Head Head: normal to inspection, normocephalic and atraumatic Ears: hearing serge (more content not included)... Normal [facility] Cardiology Visit Reporton Cardiology Visit Report [facility] [place] [address] OFFICE VISIT Date of Service: 01/04/25 MR#: [id number] Acct: [id number] Name: FERNANDA MCDONALD Rep #: [id number] : 1960 Provider: CRESCENCIO Sanders Age/Sex: 64/M Location: [facility] Status: Signed HPI HPI History of Present Illness Details: Fernanda Mcdonald is a 64-year-old male who presents to office today for follow-up for monitoring of his cardiovascular health. Patient has a history of benign prostatic hyperplasia and hypertension. He presented to our office approximately 6 weeks ago with concerns of near syncope. In 2019, patient was admitted for ARDS and developed atrial fibrillation and it appears that he was put on a beta-rancho at that time. He had previously been on tamsulosin and finasteride for his prostate. Patient did see neurology for his near syncope concerns who did not think it was neurological problem. When seen, approximately 6 weeks ago, his symptoms were felt to be orthostatic related in his antihypertensive agents were decreased and beta-rancho was discontinued. Upon presentation today, patient reports fatigue and weakness unchanged, relates this to deconditioning since hospitalization in 2019. He feels this would get better if he was more active. He reports one episode of palpitations 3-4 days ago, in which he woke up with heart racing. He has never experienced this before and it has only occurred that one time. It improved in less than an hour. He reports chronic shortness of breath with activity, felt to be related to deconditioning. Lightheadedness has significantly improved, only noticing 2 spells since last appointment and is reported to be much less drastic as previously. He has been monitoring BP at home and provided readings consisting of 150s-180s/70s-80s. 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 Gas Required: No Accompanied by: Self Is patient in pain?: No Allergies vancomycin Allergy (Verified 01/04/25 08:45) Unknown Medications ???Medication ???Instructions ???Recorded ???Confirmed ???Type citalopram 20 mg tablet 20 mg PO QDAY 10/11/24 01/04/25 Hi story dutasteride 0.5 mg capsule 0.5 mg PO QDAY 10/11/24 01/04/25 H istory lisinopril 20 mg tablet 20 mg PO DAILY #90 tabs 01/04/25 0 01/04/25 Rx Have you fallen in the past year?: No PFSH Medical History History of deviated nasal septum Hyperglycemia Essential (primary) hypertension Major depressive disorder Vitamin D deficiency Hyperlipidemia SOB (shortness of breath) Obesity Syncope Anxiety Obstructive sleep apnea Elevated PSA Benign prostatic hyperplasia New onset atrial fibrillation Surgical History Hx of repair of rotator cuff Family History Father Diabetes TIA (transient ischemic attack) Hyperlipidemia Social History Smoking Status: Former smoker ROS Const Const: Positive for fatigue and weakness ENT ENT: Negative for dizziness or balance problems Cardio Chest Pain: No Palpitations: Yes (one episode) feels like its: fast Edema: None Muscle aches with walking: None Resp Respiratory: Positive for SOB with activity; Negative for SOB at rest or SOB orthopnea SOB lying down GI GI: Negative nausea, vomiting or heartburn Musc Musc: Negative for muscle weakness or balance problems Neuro Neuro: Positive for lightheadedness and weakness; Negative for dizziness, near syncope or syncope Endo Endo: Positive for fatigue Cardiology Exam Const Appearance: cooperative, comfortable, no acute distress and well developed; Negative diaphoretic or ill appearing Nutritional Appearance: overweight Orientation: alert and oriented x3 Ambulating without assistive device Head Head: normal to inspection, normocephalic and atraumatic Ears: hearing grossly normal bilaterally Nose: external nose normal and Negative epistaxis Face and Sinus: face symmetric Eyes General: appearance normal, both eyes and all related structures Eyelids: eyelids normal Conjunctivae: conjunctivae normal; Negative scleral icterus EOM: EOM intact bilaterally Neck Neck: no JVD Carotids: normal carotid upstroke; Negative bruit Neck Mass: Negative Neck mass Ches (more content not included)... Normal [facility] 12 Lead E[place] [facility] [place] 12 Lead EKG performed by [facility] [address] [place] [address] 12 Lead EKG performed by [facility] 11/21/24 1018 MR#: [id number] Acct: [id number] Name: FERNANDA MCDONALD Rep #: [id number] : 1960 64 From: Micheal Rueda MD Attending Dr: Dr. Micheal Rueda MD Status: DEP A MLYES Ordering Dr: Micheal Rueda MD Date: 11/21/24 Location: [facility] Sex: M C Admitted: BMS/12 Lead EKG performed by [facility] ECG Report Interpretation ---Marked sinus Bradycardia BORDERLINE RHYTHMElectronically signed on 11/28/2024 at 11:28 by Micheal Rueda Software Version 8610 11/28/24 1134 Date Micheal Rueda MD CC: Dr. Teodoro Kim MD Date Dictated: 11/21/24 1018 Date Transcribed: 11/21/24 1018 Tie Bucker: CO Signed Normal [facility] Cardiology Visit Reporton Cardiology Visit Report [facility] [address] [place] [address] OFFICE VISIT Date of Service: 11/21/24 MR#: [id number] Acct: [id number] Name: FERNANDA MCDONALD Rep #: [id number] : 1960 Provider: Dr. Micheal Rueda MD Age/Sex: 64/M [place] [facility] Status: Signed HPI HPI History of Present Illness Details: 64-year-old man with previous history of benign prostatic hyperplasia and hypertension who has been having periods of near syncope which appear to occur when he gets up and walks a few feet and he feels like he is going to pass out. He says that this has been going on for a few weeks. In 2019 he was admitted with ARDS and developed atrial fibrillation and it appears that he was put on a beta-rancho at that time. He had previously been on tamsulosin for his prostate as well as finasteride. He did have a remote stress test which was unremarkable. More recently he started developing the above problems and was asked to see neurology who did not think that it was a neurologic problem. He had a carotid ultrasound also performed which did not demonstrate any significant stenosis. Recommendation to see cardiology was made for possible tilt table testing. He had previously been on lisinopril hydrochlorothiazide. His previous lipid panel demonstrates a total cholesterol 163 HDL of 49 LDL of 78. He has had no neck arm or jaw discomfort suggest angina. His physical exam demonstrates clear lung al regular rate and rhythm and no pedal edema. His electrocardiogram demonstrates sinus bradycardia with a rate of 47 bpm. 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: No Accompanied by: Significant Other Is patient in pain?: No Allergies vancomycin Allergy (Verified 11/21/24 10:24) Unknown Medications ???Medication ???Instructions ???Recorded ???Confirmed ???Type citalopram 20 mg tablet 20 mg PO QDAY 10/11/24 11/21/24 Hi story dutasteride 0.5 mg capsule 0.5 mg PO QDAY 10/11/24 11/21/24 H istory lisinopril 10 mg tablet 10 mg PO DAILY #90 tabs 11/21/24 0 11/21/24 Rx Have you fallen in the past year?: No PFSH Medical History History of deviated nasal septum Hyperglycemia Essential (primary) hypertension Major depressive disorder Vitamin D deficiency Hyperlipidemia SOB (shortness of breath) Obesity Syncope Anxiety Obstructive sleep apnea Elevated PSA Benign prostatic hyperplasia New onset atrial fibrillation Surgical History Hx of repair of rotator cuff Family History Father Diabetes TIA (transient ischemic attack) Hyperlipidemia Social History Smoking Status: Former smoker ROS Const Const: Positive for fatigue and difficulty sleeping; Negative for weakness, headache(s) or daytime sleepiness ENT ENT: Positive for dizziness; Negative for headache(s) or Nosebleed/epistaxis Cardio Chest Pain: No Palpitations: Yes (rarely) Edema: None Resp Respiratory: Positive for SOB with activity; Negative for SOB at rest, SOB orthopnea SOB lying down or Cough GI GI: Negative nausea, vomiting or heartburn Neuro Neuro: Positive for dizziness, lightheadedness, near syncope and syncope; Negative for headache(s) or weakness Endo Endo: Positive for fatigue Cardiology Exam Const Appearance: cooperative, healthy appearing, no acute distress, well developed and well groomed Nutritional Appearance: average body habitus and well nourished Orientation: alert, awake and oriented x3 Head Head: normal to inspection, normocephalic and atraumatic Ears: hearing grossly normal bilaterally and external ears normal Nose: external nose normal, nares normal, nasal mucous membranes and turbinates normal, septum normal and no nasal discharge Face and Sinus: face symmetric Mouth: oral mucosae normal, tongue normal, oropharynx normal and moist mucous membranes Teeth and gingiva: dentition normal Throat: posterior oropharynx normal, tonsils normal and uvula midline Eyes General: appearance normal, both eyes and all related structures Eyelids: eyelids normal Conjunctivae: conjunctivae normal Pupils: PERRL, normal by confrontation and accommodation normal EOM: EOM intact bilaterally Neck Neck: normal visual inspection, trachea midline and no JVD JVD: +5 Carotids: normal carotid upstroke and bounding pulses Chest Chest inspection: normal inspection of the chest, s (more content not included)... Normal [facility] Carotid Duplex Ultrasoundon 11-19-2024 Carotid Duplex Ultrasound [facility] [address] [place] [address] Carotid Duplex Ultrasound 11/19/24 1035 MR#: [id number] Acct: [id number] Name: FERNANDA MCDONALD Rep #: [id number] : 1960 64 From: Steven Biggs MD Attending Dr: Dr. Teodoro Kim MD Status: REG I Ordering Dr: Teodoro Kim MD Date: 11/19/24 Location: [facility] Sex: M C Admitted: Reason For Study Reason For Study: Syncope and collapse Rt. Velocities/BP Lt. Velocities/BP Prox CCA 50.9/7.2 cm/sec. Prox CCA 80.6/15.4 cm/sec. Mid CCA 53.5/9.9 cm/sec. Mid CCA 70.2/19.2 cm/sec. Dist CCA 40.4/9 cm/sec. Dist CCA 45.6/14.5 cm/sec. Prox ICA 44.7/12.6 cm/sec. Prox ICA 61.7/20.1 cm/sec. Mid ICA 81.5/24.8 cm/sec. Mid ICA 84.4/23.9 cm/sec. Dist ICA 71.3/23.9 cm/sec. Dist ICA 85.3/27.7 cm/sec. Rt. ICA/CCA = 1.52. Lt. ICA/CCA = 1.22. Prox ECA 93.8/8.8 cm/sec. Prox ECA 70.2/6.9 cm/sec. Rt. Vert. 51.3/10.7 cm/sec. Lt. Vert. 45.6/12.6 cm/sec. Right Extracranial There is homogeneous, smooth atherosclerotic plaque noted in the right common carotid artery. There is heterogeneous, irregular atherosclerotic plaque noted in the right internal carotid artery. There is homogeneous, smooth atherosclerotic plaque noted in the right external carotid artery. Antegrade flow is noted in the right vertebral artery. Left Extracranial There is homogeneous, smooth atherosclerotic plaque noted in the left common carotid artery. There is heterogeneous, irregular atherosclerotic plaque noted in the left internal carotid artery. There is intimal thickening but no significant atherosclerotic plaque noted in the left external carotid artery. Antegrade flow is noted in the left vertebral artery. Procedure Carotid Duplex 77411. This is a Carotid Duplex examination using B-mode, color flow and specral Doppler. Exam performed in department. VL/Carotid Duplex Ultrasound Interpretation Summary Mild (<50%) stenosis right extracranial internal carotid. Mild (<50%) stenosis left extracranial internal carotid. Flow within the vertebral arteries is antegrade bilaterally. Ordering Physician: Teodoro Kim Chi Referring Physician: Teodoro Kim Chi Performed By: Marta Power RVT 11/19/241935 Date Steven Biggs MD CC: Dr. Teodoro Kim MD Date Dictated: 11/19/241034 Date Transcribed: 11/19/241935 Tie Bucker: Signed Normal [facility] Duplex ultrasound of carotid artery reportOrdered By: Steven Biggs on 11-19-2024 Study report [facility] [address] [place] [address] Carotid Duplex Ultrasound 11/19/241034 MR#: [id number] Acct: [id number] Name: FERNANDA MCDONALD Rep #:[id number] : 1960 64 From: Steven Biggs MD Attending Dr: Dr. Teodoro Kim MD Status: REG CLI Ordering Dr: Teodoro Kim MD Date: Location: [facility] Sex: M C Admitted: Reason For Study Reason For Study: Syncope and collapse Rt. Velocities/BP Lt. Velocities/BP Prox CCA 50.9/7.2 cm/sec. Prox CCA 80.6/15.4 cm/sec. Mid CCA 53.5/9.9 cm/sec. Mid CCA 70.2/19.2 cm/sec. Dist CCA 40.4/9 cm/sec. Dist CCA 45.6/14.5 cm/sec. Prox ICA 44.7/12.6 cm/sec. Prox ICA 61.7/20.1 cm/sec. Mid ICA 81.5/24.8 cm/sec. Mid ICA 84.4/23.9 cm/sec. Dist ICA 71.3/23.9 cm/sec. Dist ICA 85.3/27.7 cm/sec. Rt. ICA/CCA = 1.52. Lt. ICA/CCA = 1.22. Prox ECA 93.8/8.8 cm/sec. Prox ECA 70.2/6.9 cm/sec. Rt. Vert. 51.3/10.7 cm/sec. Lt. Vert. 45.6/12.6 cm/sec. Right Extracranial There is homogeneous, smooth atherosclerotic plaque noted in the right common carotid artery. There is heterogeneous, irregular atherosclerotic plaque noted in the right internal carotid artery. There is homogeneous, smooth atherosclerotic plaque noted in the right external carotid artery. Antegrade flow is noted in the right vertebral artery. Left Extracranial There is homogeneous, smooth atherosclerotic plaque noted in the left common carotid artery. There is heterogeneous, irregular atherosclerotic plaque noted in the left internal carotid artery. There is intimal thickening but no significant atherosclerotic plaque noted in the left external carotid artery. Antegrade flow is noted in the left vertebral artery. Procedure Carotid Duplex 41628. This is a Carotid Duplex examination using B-mode, color flow and specral Doppler. Exam performed in department. VL/Carotid Duplex Ultrasound Interpretation Summary Mild (<50%) stenosis right extracranial internal carotid. Mild (<50%) stenosis left extracranial internal carotid. Flow within the vertebral arteries is antegrade bilaterally. Ordering Physician: Teodoro Kim Chi Referring Physician: Teodoro Kim Chi Performed By: Marta Power RVT 11/19/241935 Date _ Steven Biggs MD CC: Dr. Teodoro Kim MD ~ Date Dictated: 11/19/245 Date Transcribed: 11/19/241935 Tie Bucker: Signed [facility] Other Phone: [phone] DOrdered By: Valentina Kim on 10-04-2024 Vitamin D 25-Hydroxy 6.7 ng/mL [facility] Comment on above: Vitamin D 25(OH) Sta tus Range Deficiency <20 ng/mL (50nmol/L) Insufficiency 20 - 30 ng/mL (50 - 75 nmol/L) Sufficiency 30 - 100 ng/mL (75 - 250 nmol/L) Toxicity >100 ng/mL (>250 nmol/L) Absolute lymphocyte countOrd ered By: Teodoro Kim on 10-04-2024 Lymphocytes Auto (Unsp spec) [#/Vol] 1.72 10*3/uL 0.83-4.51 [facility] Absolute neutrophil countOrd ered By: Teodoro Kim on 10-04-2024 Neutrophils (Bld) [#/Vol] 6.7 10*3/uL 2.0-7.7 [facility] Albumin to globulin ratioOrd ered By: Teodoro Kim on 10-04-2024 Albumin/Globulin [Mass ratio] 0.9 {ratio} 0.9-2.4 [facility] Automated lymphocyte count a s percentage of total leukocytesOrdered By: Teodoro Kim on 10-04-2024 Lymphocytes/100 WBC Auto (Unsp spec) 18.3 % Low 19-41 [facility] Basophil percentageOrdered B y: Teodoro Kim on 10-04-2024 Basophils/100 WBC (Bld) 0.6 % 0-1 [facility] Bilirubin, totalOrdered By: Teodoro Kim on 10-04-2024 Bilirubin [Mass/Vol] 0.40 mg/dL 0.20-1.00 [facility] Comment on above: For patients on eltr ombopag therapy, use of Dimension [place] TBIL is not recommended. Blood urea nitrogen (BUN)/cr eatinine ratioOrdered By: Teodoro Kim on 10-04-2024 Urea nitrogen/Creatinine [Mass ratio] 17.0 mg/mg 10-20 [facility] CBC W/Diff, Automatedon 09-22 Absolute Lymph 1.72 X10 3/uL Normal 0.83-4.51 [facility] Comment on above: Performed By: #### L 501.9520, L500.4050, L506.1000, L100.0100 #### [facility] [address] [place], [place], [id number] Absolute Neut 6.7 X10 3/uL Normal 2.0-7.7 [facility] Comment on above: Performed By: #### L 501.9520, L500.4050, L506.1000, L100.0100 #### [facility] [address] [place], [address] Basophils/100 WBC (Bld) 0.6 % Normal 0-1 [facility] Comment on above: Performed By: #### L 501.9520, L500.4050, L506.1000, L100.0100 #### [facility] [address] [place], [address] Eosinophils/100 WBC (Bld) 1.4 % Normal 0-5 [facility] Comment on above: Performed By: #### L 501.9520, L500.4050, L506.1000, L100.0100 #### [facility] [address] [place], [address] Erythrocyte distribution width (RBC) [Ratio] 18.5 % High 11.6-14.6 [facility] Comment on above: Performed By: #### L 501.9520, L500.4050, L506.1000, L100.0100 #### [facility] [address] [place], [address] Hematocrit (Bld) [Volume fraction] 42.0 % Normal 40-54 [facility] Comment on above: Performed By: #### L 501.9520, L500.4050, L506.1000, L100.0100 #### [facility] [address] [place], [address] Hemoglobin (Bld) [Mass/Vol] 12.8 g/dL Low 13.0-16.5 [facility] Comment on above: Performed By: #### L 501.9520, L500.4050, L506.1000, L100.0100 #### [facility] [address] [place], [address] IG% 0.500 Normal 0.0-0.9 [facility] Comment on above: Result Comment: IG% - Immature Granulocytes (promyelocytes, myelocytes and metamyelocytes) > 1% indicates that a LEFT SHIFT is Present. Performed By: #### L 501.9520, L500.4050, L506.1000, L100.0100 #### [facility] [address] [place], [address] Lymphocytes/100 WBC (Bld) 18.3 % Low 19-41 [facility] Comment on above: Performed By: #### L 501.9520, L500.4050, L506.1000, L100.0100 #### [facility] [address] [place], [address] MCH (RBC) [Entitic mass] 21.1 pg Low 27.0-32.0 [facility] Comment on above: Performed By: #### L 501.9520, L500.4050, L506.1000, L100.0100 #### [facility] [address] [place], [address] MCHC (RBC) [Mass/Vol] 30.5 g/dL Low 32-36 [facility] Comment on above: Performed By: #### L 501.9520, L500.4050, L506.1000, L100.0100 #### [facility] [address] [place], [address] MCV (RBC) [Entitic vol] 69.2 fL Low 80-94 [facility] Comment on above: Performed By: #### L 501.9520, L500.4050, L506.1000, L100.0100 #### [facility] [address] [place], [address] Monocytes/100 WBC (Bld) 7.5 % Normal 0-10 [facility] Comment on above: Performed By: #### L 501.9520, L500.4050, L506.1000, L100.0100 #### [facility] [address] [place], [address] Neutrophils/100 WBC (Bld) 71.7 % High 47-70 [facility] Comment on above: Performed By: #### L 501.9520, L500.4050, L506.1000, L100.0100 #### [facility] [address] [place], [address] Nucleated RBC (Bld) [#/Vol] 0.2 10*3/uL Normal 0-5 [facility] Comment on above: Performed By: #### L 501.9520, L500.4050, L506.1000, L100.0100 #### [facility] [address] [place], [address] Platelet mean volume (Bld) [Entitic vol] 10.2 fL Normal 6.2-12.0 [facility] Comment on above: Performed By: #### L 501.9520, L500.4050, L506.1000, L100.0100 #### [facility] [address] [place], [address] Platelets (Bld) [#/Vol] 228 10*3/uL Normal 150-450 [facility] Comment on above: Performed By: #### L 501.9520, L500.4050, L506.1000, L100.0100 #### [facility] [address] [place], [address] RBC (Bld) [#/Vol] 6.07 10*6/uL Normal 4.6-6.2 [facility] Comment on above: Performed By: #### L 501.9520, L500.4050, L506.1000, L100.0100 #### [facility] [address] [place], [address] RDW SD 40.5 fl Normal 35.1-43.9 [facility] Comment on above: Performed By: #### L 501.9520, L500.4050, L506.1000, L100.0100 #### [facility] [address] [place], [address] WBC (Bld) [#/Vol] 9.4 10*3/uL Normal 4.4-11.0 [facility] Comment on above: Performed By: #### L 501.9520, L500.4050, L506.1000, L100.0100 #### [facility] [address] [place], [address] Carbon dioxide measurementOr dered By: Teodoro Kim on 10-04-2024 CO2 [Moles/Vol] 26.0 mmol/L 21.0-32.0 [facility] Chloride measurementOrdered By: Teodoro Kim on 10-04-2024 Chloride [Moles/Vol] 109 mmol/L High 98-107 [facility] Comprehensive Metabolic Prof ilon 10-04-2024 Albumin [Mass/Vol] 3.6 g/dL Normal 3.2-5.0 [facility] Comment on above: Performed By: #### L 501.9520, L500.4050, L506.1000, L100.0100 ####[facility] [address] [place], [address] Albumin/Globulin [Mass ratio] 0.9 {ratio} Normal 0.9-2.4 [facility] Comment on above: Performed By: #### L 501.9520, L500.4050, L506.1000, L100.0100 ####[facility] [address] [place], [address] ALK P 69 U/L Normal 45-117 [facility] Comment on above: Performed By: #### L 501.9520, L500.4050, L506.1000, L100.0100 ####[facility] [address] [place], [address] ALT [Catalytic activity/Vol] 34 U/L Normal 16-61 [facility] Comment on above: Performed By: #### L 501.9520, L500.4050, L506.1000, L100.0100 ####[facility] [address] [place], [address] AST [Catalytic activity/Vol] 24 U/L Normal 15-37 [facility] Comment on above: Performed By: #### L 501.9520, L500.4050, L506.1000, L100.0100 ####[facility] [address] [place], [address] Bilirubin [Mass/Vol] 0.40 mg/dL Normal 0.20-1.00 [facility] Comment on above: Result Comment: For patients on eltrombopag therapy, use of Dimension [place] TBIL is not recommended. Performed By: #### L 501.9520, L500.4050, L506.1000, L100.0100 ####[facility] [address] [place], [address] BUN/CRE 17.0 RATIO Normal 10-20 [facility] Comment on above: Performed By: #### L 501.9520, L500.4050, L506.1000, L100.0100 ####[facility] [address] [place], [address] CA,Total 8.9 mg/dL Normal 8.5-10.1 [facility] Comment on above: Performed By: #### L 501.9520, L500.4050, L506.1000, L100.0100 ####[facility] [address] [place], [address] Chloride [Moles/Vol] 109 mmol/L High 98-107 [facility] Comment on above: Performed By: #### L 501.9520, L500.4050, L506.1000, L100.0100 ####[facility] [address] [place], [address] CO2 [Moles/Vol] 26.0 mmol/L Normal 21.0-32.0 [facility] Comment on above: Performed By: #### L 501.9520, L500.4050, L506.1000, L100.0100 ####[facility] [address] [place], [address] Creatinine [Mass/Vol] 1.06 mg/dL Normal 0.70-1.30 [facility] Comment on above: Result Comment: The validity of the calculated GFR GFRAA in patients over 70 years has not been determined. Clinical correlation is essential. Performed By: #### L 501.9520, L500.4050, L506.1000, L100.0100 ####[facility] [address] [place], [address] EST GFR - AA 90 mL/min Normal >60 [facility] Comment on above: Result Comment: Afri can Ivorian GFR Calc Performed By: #### L 501.9520, L500.4050, L506.1000, L100.0100 ####[facility] [address] [place], [address] GAP 5 Normal 5-15 [facility] Comment on above: Performed By: #### L 501.9520, L500.4050, L506.1000, L100.0100 ####[facility] [address] [place], [address] GFR/1.73 sq M.predicted among non-blacks MDRD (S/P/Bld) [Vol rate/Area] 74 mL/min/{1.73_m2} Normal >60 [facility] Comment on above: Result Comment: Non- GFR Calc Performed By: #### L 501.9520, L500.4050, L506.1000, L100.0100 ####[facility] [address] [place], [address] Globulin (S) [Mass/Vol] 3.9 g/dL Normal 2.2-4.2 [facility] Comment on above: Performed By: #### L 501.9520, L500.4050, L506.1000, L100.0100 ####[facility] [address] [place], [address] Glucose [Mass/Vol] 103 mg/dL Normal 74-106 [facility] Comment on above: Result Comment: Fast ing Glucose result from 100 to 125 mg/dL suggests IMPAIRED HOMEOSTASIS per A.D.A. criteria. Performed By: #### L 501.9520, L500.4050, L506.1000, L100.0100 ####[facility] [address] [place], [address] Potassium [Moles/Vol] 4.1 mmol/L Normal 3.5-5.1 [facility] Comment on above: Performed By: #### L 501.9520, L500.4050, L506.1000, L100.0100 ####[facility] [address] [place], [address] Sodium [Moles/Vol] 140 mmol/L Normal 136-145 [facility] Comment on above: Performed By: #### L 501.9520, L500.4050, L506.1000, L100.0100 ####[facility] [address] [place], [address] T PROT 7.5 g/dL Normal 6.4-8.2 [facility] Comment on above: Performed By: #### L 501.9520, L500.4050, L506.1000, L100.0100 ####[facility] [address] [place], [address] Urea nitrogen [Mass/Vol] 18 mg/dL Normal 7-18 [facility] Comment on above: Performed By: #### L 501.9520, L500.4050, L506.1000, L100.0100 ####[facility] [address] [place], [address] Eosinophil percentageOrdered By: Teodoro Kim on 10-04-2024 Eosinophils/100 WBC (Bld) 1.4 % 0-5 [facility] Erythrocyte distribution wid th (RBC) [Ratio]Ordered By: Teodoro Kim on 10-04-2024 Erythrocyte distribution width (RBC) [Entitic vol] 40.5 fL 35.1-43.9 [facility] Erythrocyte distribution wid th ratioOrdered By: [facility] on 10-04-2024 Erythrocyte distribution width (RBC) [Ratio] 18.5 % High 11.6-14.6 [facility] Erythrocyte distribution wid th standard deviationOrdered By: [facility] on 10-04-2024 Erythrocyte distribution width (RBC) [Ratio] 40.5 fl 35.1-43.9 [facility] Estimated glomerular filtrat ion rate (GFR) AmericanOrdered By: Teodoro Kim on 10-04-2024 Estimated GFR (MDRD) Amer 90 mL/min >60 [facility] Comment on above: GFR Calc Glomerular filtration rate ( GFR) estimationOrdered By: Teodoro Kim 10-04-2024 Estimated GFR (MDRD) Non-Af Amer 74 mL/min >60 [facility] Comment on above: Non- GFR Calc GFR/1.73 sq M.predicted among non-blacks MDRD (S/P/Bld) [Vol rate/Area] 74 mL/min/{1.73_m2} >60 [facility] Comment on above: Non- GFR Calc Glucose measurementOrdered B y: Teodoro Kim on 10-04-2024 Glucose [Mass/Vol] 103 mg/dL 74-106 [facility] Comment on above: Fasting Glucose resu lt from 100 to 125 mg/dL suggests IMPAIRED HOMEOSTASIS per A.D.A. criteria. Hematocrit Auto (Bld) [Volum e fraction]Ordered By: Teodoro Kim 10-04-2024 Hematocrit (Bld) [Volume fraction] 42.0 % 40-54 [facility] Hemoglobin measurementOrdere d By: Teodoro Kim 10-04-2024 Hemoglobin (Bld) [Mass/Vol] 12.8 g/dL Low 13.0-16.5 [facility] Immature granulocytes/100 WB C Auto (Bld)Ordered By: Teodoro Julio on 10-04-2024 Immature granulocytes/100 WBC (Bld) 0.500 % 0.0-0.9 [facility] Comment on above: IG% - Immature Granu locytes (promyelocytes, myelocytes and metamyelocytes) > 1% indicates that a LEFT SHIFT is Present. Laboratory - Chemistry and C hemistry - challengeOrdered By: Teodoro Kim on 10-04-2024 AST [Catalytic activity/Vol] 24 U/L 15-37 [facility] Lymphocytes Auto (Unsp spec) [#/Vol]Ordered By: Teodoro Julio on 10-04-2024 Lymphocytes (Bld) [#/Vol] 1.72 10*3/uL 0.83-4.51 [facility] Lymphocytes/100 WBC Auto (Un sp spec)Ordered By: Tedooro Kim 10-04-2024 Lymphocytes/100 WBC (Bld) 18.3 % Low 19-41 [facility] MCV (mean corpuscular volume ) determinationOrdered By: Teodoro Kim 10-04-2024 MCV (RBC) [Entitic vol] 69.2 fL Low 80-94 [facility] Mean corpuscular hemoglobin (MCH) determinationOrdered By: Teodoro Kim 10-04-2024 MCH (RBC) [Entitic mass] 21.1 pg Low 27.0-32.0 [facility] Mean corpuscular hemoglobin concentration (MCHC) determinationOrdered By: Teodoro Kim on 10-04-2024 MCHC (RBC) [Mass/Vol] 30.5 g/dL Low 32-36 [facility] Mean platelet volume determi nationOrdered By: Teodoro Kim 10-04-2024 Platelet mean volume (Bld) [Entitic vol] 10.2 fL 6.2-12.0 [facility] Monocyte percentageOrdered B y: Teodoro Kim on 10-04-2024 Monocytes/100 WBC (Bld) 7.5 % 0-10 [facility] Neutrophil percentageOrdered By: Teodoro Kim on 10-04-2024 Neutrophils/100 WBC (Bld) 71.7 % High 47-70 [facility] Nucleated red blood cell per centageOrdered By: Teodoro Kim on 10-04-2024 Nucleated RBC/100 WBC (Bld) [Ratio] 0.2 % 0-5 [facility] Platelet countOrdered By: Singh Kim on 10-04-2024 Platelets (Bld) [#/Vol] 228 10*3/uL 150-450 [facility] Potassium measurementOrdered By: Teodoro Kim on 10-04-2024 Potassium [Moles/Vol] 4.1 mmol/L 3.5-5.1 [facility] RBC Auto (Bld) [#/Vol]Ordere d By: Teodoro Kim on 10-04-2024 RBC (Bld) [#/Vol] 6.07 10*6/uL 4.6-6.2 [facility] Serum anion gap measurementO rdered By: Teodoro Kim 10-04-2024 Anion gap [Moles/Vol] 5 mmol/L 5-15 [facility] Serum globulin measurementOr dered By: Teodoro Kim 10-04-2024 Globulin (S) [Mass/Vol] 3.9 g/dL 2.2-4.2 [facility] Serum or plasma alanine gutierrez otransferase (ALT) measurementOrdered By: Teodoro Kim 10-04-2024 ALT [Catalytic activity/Vol] 34 U/L 16-61 [facility] Serum or plasma albumin doron urement (mass/volume)Ordered By: Teodoro Kim 10-04-2024 Albumin [Mass/Vol] 3.6 g/dL 3.2-5.0 [facility] Serum or plasma alkaline fawn sphatase measurementOrdered By: Teodoro Kim 10-04-2024 ALP [Catalytic activity/Vol] 69 U/L 45-117 [facility] Serum or plasma calcium doron urement (mass/volume)Ordered By: Teodoro Kim 10-04-2024 Calcium [Mass/Vol] 8.9 mg/dL 8.5-10.1 [facility] Serum or plasma creatinine m easurement (mass/volume)Ordered By: Teodoro Kim 10-04-2024 Creatinine [Mass/Vol] 1.06 mg/dL 0.70-1.30 [facility] Comment on above: The validity of the calculated GFR & GFRAA in patients over 70 years has not been determined. Clinical correlation is essential. Serum or plasma thyroid stim ulating hormone (TSH) measurement (units/volume)Ordered By: Teodoro Kim on 10-04-2024 TSH Qn 1.700 uIU/mL 0.358-3.740 [facility] Serum or plasma urea nitroge n measurement (mass/volume)Ordered By: Teodoro Kim on 10-04-2024 Urea nitrogen [Mass/Vol] 18 mg/dL 7-18 [facility] Sodium levelOrdered By: Teodoro Kim on 10-04-2024 Sodium [Moles/Vol] 140 mmol/L 136-145 [facility] TSH QnOrdered By: Teodoro Kim o n 10-04-2024 Thyroid Stimulating Hormone (TSH) 1.700 uIU/mL 0.358-3.740 [facility] Thyroid Stim Hormone (TSH)on 10-04-2024 TSH 1.700 uIU/mL Normal 0.358-3.740 [facility] Comment on above: Performed By: #### L 501.9520, L500.4050, L506.1000, L100.0100 ####[facility] [address] [place], [address] Total proteinOrdered By: Teodoro Kim on 10-04-2024 Protein [Mass/Vol] 7.5 g/dL 6.4-8.2 [facility] Vitamin D,25 Hydroxyon 10-04 Vitamin D 25-OH 6.7 ng/mL Normal [facility] Comment on above: Result Comment: Antoinette min D 25(OH) Status Range Deficiency <20 ng/mL (50nmol/L) Insufficiency 20 - 30 ng/mL (50 - 75 nmol/L) Sufficiency 30 - 100 ng/mL (75 - 250 nmol/L) Toxicity >100 ng/mL (>250 nmol/L) Performed By: #### L 501.9520, L500.4050, L506.1000, L100.0100 #### [facility] [address] [place], [address] White blood cell (WBC) count Ordered By: Teodoro Kim on 10-04-2024 WBC (Bld) [#/Vol] 9.4 10*3/uL 4.4-11.0 [facility] Hemoglobin A1con 04-10-2024 HbA1c (Bld) [Mass fraction] 5.7 % High 3.8-5.6 [facility] Comment on above: Order Comment: ADD O N Result Comment: Norm al < 5.7 % Prediabetic 5.7 - 6.4 % Diabetic >or= 6.5 % Please note range changes. Performed By: #### L [id number], L500.4050, L100.0100, L506.1000, [id number] #### [facility] [address] [place], [address] CBC W/Diff, Automatedon 03-22 Absolute Lymph 1.60 X10 3/uL Normal 0.83-4.51 [facility] Comment on above: Performed By: #### L [id number], [id number], L100.0100, L506.1000, [id number] #### [facility] [address] [place], [address] Absolute Neut 5.8 X10 3/uL Normal 2.0-7.7 [facility] Comment on above: Performed By: #### L [id number], [id number], L100.0100, L506.1000, [id number] #### [facility] [address] [place], [address] Basophils/100 WBC (Bld) 0.6 % Normal 0-1 [facility] Comment on above: Performed By: #### L [id number], [id number], L100.0100, L506.1000, [id number] #### [facility] [address] [place], [address] Eosinophils/100 WBC (Bld) 1.7 % Normal 0-5 [facility] Comment on above: Performed By: #### L [id number], [id number], L100.0100, L506.1000, [id number] #### [facility] [address] [place], [address] Erythrocyte distribution width (RBC) [Ratio] 17.7 % High 11.6-14.6 [facility] Comment on above: Performed By: #### L [id number], [id number], L100.0100, L506.1000, L501.9985 #### [facility] [address] [place], [address] Hematocrit (Bld) [Volume fraction] 40.9 % Normal 40-54 [facility] Comment on above: Performed By: #### L [id number], [id number], L100.0100, L506.1000, [id number] #### [facility] [address] [place], [address] Hemoglobin (Bld) [Mass/Vol] 12.4 g/dL Low 13.0-16.5 [facility] Comment on above: Performed By: #### L [id number], [id number], L100.0100, L506.1000, L501.9985 #### [facility] [address] [place], [address] IG% 0.400 Normal 0.0-0.9 [facility] Comment on above: Result Comment: IG% - Immature Granulocytes (promyelocytes, myelocytes and metamyelocytes) > 1% indicates that a LEFT SHIFT is Present. Performed By: #### L [id number], L500.4050, L100.0100, L506.1000, L501.9985 #### [facility] [address] [place], [address] Lymphocytes/100 WBC (Bld) 19.6 % Normal 19-41 [facility] Comment on above: Performed By: #### L [id number], [id number], L100.0100, L506.1000, [id number] #### [facility] [address] [place], [address] MCH (RBC) [Entitic mass] 20.2 pg Low 27.0-32.0 [facility] Comment on above: Performed By: #### L [id number], [id number], L100.0100, L506.1000, [id number] #### [facility] [address] [place], [address] MCHC (RBC) [Mass/Vol] 30.3 g/dL Low 32-36 [facility] Comment on above: Performed By: #### L [id number], [id number], L100.0100, L506.1000, [id number] #### [facility] [address] [place], [address] MCV (RBC) [Entitic vol] 66.6 fL Low 80-94 [facility] Comment on above: Performed By: #### L [id number], [id number], L100.0100, L506.1000, [id number] #### [facility] [address] [place], [address] Monocytes/100 WBC (Bld) 6.8 % Normal 0-10 [facility] Comment on above: Performed By: #### L [id number], [id number], L100.0100, L506.1000, [id number] #### [facility] [address] [place], [address] Neutrophils/100 WBC (Bld) 70.9 % High 47-70 [facility] Comment on above: Performed By: #### L [id number], L500.4050, L100.0100, L506.1000, L501.9985 #### [facility] [address] [place], [address] Nucleated RBC (Bld) [#/Vol] 0 10*3/uL Normal 0-5 [facility] Comment on above: Performed By: #### L [id number], L500.4050, L100.0100, L506.1000, L501.9985 #### [facility] [address] [place], [address] Platelet mean volume (Bld) [Entitic vol] 10.3 fL Normal 6.2-12.0 [facility] Comment on above: Performed By: #### L [id number], [id number], L100.0100, L506.1000, L501.9985 #### [facility] [address] [place], [address] Platelets (Bld) [#/Vol] 205 10*3/uL Normal 150-450 [facility] Comment on above: Performed By: #### L [id number], [id number], L100.0100, L506.1000, L501.9985 #### [facility] [address], [address] RBC (Bld) [#/Vol] 6.14 10*6/uL Normal 4.6-6.2 [facility] Comment on above: Performed By: #### L [id number], L500.4050, L100.0100, L506.1000, L501.9985 #### [facility] [address] [place], [address] RDW SD 36.9 fl Normal 35.1-43.9 [facility] Comment on above: Performed By: #### L [id number], L500.4050, L100.0100, L506.1000, L501.9985 #### [facility] [address] [place], [address] WBC (Bld) [#/Vol] 8.2 10*3/uL Normal 4.4-11.0 [facility] Comment on above: Performed By: #### L [id number], L500.4050, L100.0100, L506.1000, L501.9985 #### [facility] [address] [place], [address] Comprehensive Metabolic [facility] 04-09-2024 Albumin [Mass/Vol] 3.5 g/dL Normal 3.2-5.0 [facility] Comment on above: Performed By: #### L [id number], L500.4050, L100.0100, L506.1000, L501.9985 #### [facility] [address] [place], [address] Albumin/Globulin [Mass ratio] 1.0 {ratio} Normal 0.9-2.4 [facility] Comment on above: Performed By: #### L [id number], [id number], L100.0100, L506.1000, L501.9985 #### [facility] [address] [place], [address] ALK P 61 U/L Normal 45-117 [facility] Comment on above: Performed By: #### L [id number], [id number], L100.0100, L506.1000, L501.9985 #### [facility] [address] [place], [address] ALT [Catalytic activity/Vol] 26 U/L Normal 16-61 [facility] Comment on above: Performed By: #### L [id number], L500.4050, L100.0100, L506.1000, L501.9985 #### [facility] [address] [place], [address] AST [Catalytic activity/Vol] 16 U/L Normal 15-37 [facility] Comment on above: Performed By: #### L [id number], L500.4050, L100.0100, L506.1000, L501.9985 #### [facility] [address] [place], [address] Bilirubin [Mass/Vol] 0.40 mg/dL Normal 0.20-1.00 [facility] Comment on above: Result Comment: For patients on eltrombopag therapy, use of Dimension [place] TBIL is not recommended. Performed By: #### L [id number], L500.4050, L100.0100, L506.1000, L501.9985 #### [facility] [address] [place], [address] BUN/CRE 20.5 RATIO High 10-20 [facility] Comment on above: Performed By: #### L [id number], L500.4050, L100.0100, L506.1000, L501.9985 #### [facility] [address] [place], [address] CA,Total 8.9 mg/dL Normal 8.5-10.1 [facility] Comment on above: Performed By: #### L [id number], L500.4050, L100.0100, L506.1000, L501.9985 #### [facility] [address] [place], [address] Chloride [Moles/Vol] 110 mmol/L High 98-107 [facility] Comment on above: Performed By: #### L [id number], L500.4050, L100.0100, L506.1000, L501.9985 #### [facility] [address] [place], [address] CO2 [Moles/Vol] 25.0 mmol/L Normal 21.0-32.0 [facility] Comment on above: Performed By: #### L [id number], L500.4050, L100.0100, L506.1000, L501.9985 #### [facility] [address] [place], [address] Creatinine [Mass/Vol] 0.93 mg/dL Normal 0.70-1.30 [facility] Comment on above: Result Comment: The validity of the calculated GFR GFRAA in patients over 70 years has not been determined. Clinical correlation is essential. Performed By: #### L [id number], L500.4050, L100.0100, L506.1000, L501.9985 #### [facility] [address] [place], [address] EST GFR - AA 105 mL/min Normal >60 [facility] Comment on above: Result Comment: Afri can Ivorian GFR Calc Performed By: #### L [id number], L500.4050, L100.0100, L506.1000, L501.9985 #### [facility] [address] [place], [address] GAP 5 Normal 5-15 [facility] Comment on above: Performed By: #### L [id number], L500.4050, L100.0100, L506.1000, L501.9985 #### [facility] [address] [place], [address] GFR/1.73 sq M.predicted among non-blacks MDRD (S/P/Bld) [Vol rate/Area] 87 mL/min/{1.73_m2} Normal >60 [facility] Comment on above: Result Comment: Non- GFR Calc Performed By: #### L [id number], L500.4050, L100.0100, L506.1000, L501.9985 #### [facility] [address] [place], [address] Globulin (S) [Mass/Vol] 3.6 g/dL Normal 2.2-4.2 [facility] Comment on above: Performed By: #### L [id number], L500.4050, L100.0100, L506.1000, L501.9985 #### [facility] [address] [place], [address] Glucose [Mass/Vol] 139 mg/dL High 74-106 [facility] Comment on above: Result Comment: Fast ing Glucose result greater than or equal to 126 mg/dL suggests DIABETES MELLITUS per A.D.A. criteria. Performed By: #### L [id number], L500.4050, L100.0100, L506.1000, L501.9985 #### [facility] [address] [place], [address] Potassium [Moles/Vol] 3.7 mmol/L Normal 3.5-5.1 [facility] Comment on above: Performed By: #### L [id number], L500.4050, L100.0100, L506.1000, L501.9985 #### [facility] [address] [place], [address] Sodium [Moles/Vol] 140 mmol/L Normal 136-145 [facility] Comment on above: Performed By: #### L [id number], L500.4050, L100.0100, L506.1000, L501.9985 #### [facility] [address] [place], [address] T PROT 7.1 g/dL Normal 6.4-8.2 [facility] Comment on above: Performed By: #### L [id number], L500.4050, L100.0100, L506.1000, L501.9985 #### [facility] [address] [place], [address] Urea nitrogen [Mass/Vol] 19 mg/dL High 7-18 [facility] Comment on above: Performed By: #### L [id number], L500.4050, L100.0100, L506.1000, L501.9985 #### [facility] [address] [place], [address] Thyroid Stim Hormone (TSH)on 04-09-2024 TSH 1.110 uIU/mL Normal 0.358-3.740 [facility] Comment on above: Performed By: #### L [id number], L500.4050, L100.0100, L506.1000, L501.9985 #### [facility] [address] [place], [address] Vitamin D,25 Hydroxyon 04-09 Vitamin D 25-OH 31.8 ng/mL Normal [facility] Comment on above: Result Comment: Antoinette min D 25(OH) Status Range Deficiency <20 ng/mL (50nmol/L) Insufficiency 20 - 30 ng/mL (50 - 75 nmol/L) Sufficiency 30 - 100 ng/mL (75 - 250 nmol/L) Toxicity >100 ng/mL (>250 nmol/L) Performed By: #### L [id number], L500.4050, L100.0100, L506.1000, L501.9985 #### [facility] [address] [place], [address] Absolute lymphocyte countOrd ered By: Teodoro Kim on 10-06-2023 Lymphocytes Auto (Unsp spec) [#/Vol] 1.55 10*3/uL 0.83-4.51 [facility] Automated lymphocyte count a s percentage of total leukocytesOrdered By: Teodoro Kim on 10-06-2023 Lymphocytes/100 WBC Auto (Unsp spec) 19.8 % 19-41 [facility] Basophil percentageOrdered B y: Teodoro Kim on 10-06-2023 Basophil percentage 3.38 ng/mL 0.0-4.0 [facility] Comment on above: This test was perfor med using the TPSA assay method for the[employer] chemistry system. Values obtained with differentassay methods cannot be used interchangably.When changing PSA assays in the course of monitoring apatient, additional sequential testing should be carriedout to confirm baseline values. Basophils/100 WBC (Bld) 0.4 % 0-1 [facility] Bilirubin [Mass/Vol] 0.30 mg/dL 0.20-1.00 [facility] Comment on above: For patients on eltr ombopag therapy, use of Dimension [place] TBIL is not recommended. Chloride [Moles/Vol] 110 mmol/L 98-107 [facility] Eosinophils/100 WBC (Bld) 1.8 % 0-5 [facility] Glucose [Mass/Vol] 138 mg/dL 74-106 [facility] Comment on above: Fasting Glucose resu lt greater than or equal to 126 mg/dL suggests DIABETES MELLITUS per A.D.A. criteria. Hemoglobin (Bld) [Mass/Vol] 12.2 g/dL 13.0-16.5 [facility] Monocytes/100 WBC (Bld) 7.6 % 0-10 [facility] Neutrophils (Bld) [#/Vol] 5.5 10*3/uL 2.0-7.7 [facility] Neutrophils/100 WBC (Bld) 70.1 % 47-70 [facility] Potassium [Moles/Vol] 4.1 mmol/L 3.5-5.1 [facility] Comment on above: Slight Hemolysis, Re sult may be falsely increased. Protein [Mass/Vol] 7.3 g/dL 6.4-8.2 [facility] Sodium [Moles/Vol] 140 mmol/L 136-145 [facility] WBC (Bld) [#/Vol] 7.8 10*3/uL 4.4-11.0 [facility] Determination of erythrocyte mean corpuscular volume (MCV)Ordered By: Teodoro Kim on 10-06-2023 MCV (RBC) [Entitic vol] 67.8 fL 80-94 [facility] Erythrocyte distribution wid th ratioOrdered By: Teodoro Kim on 10-06-2023 Erythrocyte distribution width (RBC) [Ratio] 15.9 % 11.6-14.6 [facility] Erythrocyte distribution wid th standard deviationOrdered By: Teodoro Kim on 10-06-2023 Erythrocyte distribution width (RBC) [Entitic vol] 36.9 fL 35.1-43.9 [facility] Hematocrit Auto (Bld) [Volum e fraction]Ordered By: Teodoro Kim on 10-06-2023 Hematocrit (Bld) [Volume fraction] 41.1 % 40-54 [facility] Immature granulocytes/100 WB C Auto (Bld)Ordered By: Teodoro Kim on 10-06-2023 Immature granulocytes/100 WBC (Bld) 0.300 % 0.0-0.9 [facility] Comment on above: IG% - Immature Granu locytes (promyelocytes, myelocytes and metamyelocytes) > 1% indicates that a LEFT SHIFT is Present. Laboratory - Chemistry and C hemistry - challengeOrdered By: Teodoro Kim on 10-06-2023 Albumin/Globulin [Mass ratio] 1.0 {ratio} 0.9-2.4 [facility] ALP [Catalytic activity/Vol] 70 U/L 45-117 [facility] ALT [Catalytic activity/Vol] 34 U/L 16-61 [facility] CO2 [Moles/Vol] 24.0 mmol/L 21.0-32.0 [facility] Globulin (S) [Mass/Vol] 3.7 g/dL 2.2-4.2 [facility] Urea nitrogen/Creatinine [Mass ratio] 15.5 mg/mg 10-20 [facility] - Hematology and Cell countsOrdered By: Teodoro Kim 10-06-2023 MCH (RBC) [Entitic mass] 20.1 pg 27.0-32.0 [facility] MCHC (RBC) [Mass/Vol] 29.7 g/dL 32-36 [facility] Nucleated RBC/100 WBC (Bld) [Ratio] 0 % 0-5 [facility] Platelet mean volume (Bld) [Entitic vol] 11.4 fL 6.2-12.0 [facility] Platelets (Bld) [#/Vol] 219 10*3/uL 150-450 [facility] No Panel InformationOrdered By: Teodoro Kim on 10-06-2023 Estimated GFR (MDRD) Amer 100 mL/min >60 [facility] Comment on above: GFR Calc Estimated GFR (MDRD) Non-Af Amer 83 mL/min >60 [facility] Comment on above: Non- GFR Calc RBC Auto (Bld) [#/Vol]Ordere d By: Teodoro Kim on 10-06-2023 RBC (Bld) [#/Vol] 6.06 10*6/uL 4.6-6.2 [facility] Serum or plasma calcium doron urement (mass/volume)Ordered By: Teodoro Kim on 10-06-2023 Calcium [Mass/Vol] 8.9 mg/dL 8.5-10.1 [facility] Serum or plasma creatinine m easurement (mass/volume)Ordered By: Teodoro Kim on 10-06-2023 Creatinine [Mass/Vol] 0.97 mg/dL 0.70-1.30 [facility] Comment on above: The validity of the calculated GFR & GFRAA in patients over 70 years has not been determined. Clinical correlation is essential. Serum or plasma thyroid stim ulating hormone (TSH) measurement (units/volume)Ordered By: Teodoro Kim on 10-06-2023 TSH Qn 1.40 uIU/mL 0.358-3.74 [facility] Serum or plasma urea nitroge n measurement (mass/volume)Ordered By: Teodoro Kim on 10-06-2023 Urea nitrogen [Mass/Vol] 15 mg/dL 7-18 [facility] Thin prep Papanicolaou smear with manual screeningOrdered By: Teodoro Kmi on 10-06-2023 Thin prep Papanicolaou smear with manual screening 3.6 g/dL 3.2-5.0 [facility] Thin prep Papanicolaou smear with manual screening 18 U/L 15-37 [facility] Comment on above: Slight Hemolysis, Re sult may be falsely increased. Thin prep Papanicolaou smear with manual screening 6 5-15 [facility] Absolute lymphocyte countOrd ered By: Teodoro Kim on 04-05-2023 Lymphocytes Auto (Unsp spec) [#/Vol] 2.04 10*3/uL 0.83-4.51 [facility] Basophil percentageOrdered B y: Teodoro Kim on 04-05-2023 Basophils/100 WBC (Bld) 0.5 % 0-1 [facility] Bilirubin [Mass/Vol] 0.40 mg/dL 0.20-1.00 [facility] Comment on above: For patients on eltr ombopag therapy, use of Dimension [place] TBIL is not recommended. Chloride [Moles/Vol] 108 mmol/L 98-107 [facility] Eosinophils/100 WBC (Bld) 1.4 % 0-5 [facility] Glucose [Mass/Vol] 104 mg/dL 74-106 [facility] Comment on above: Fasting Glucose resu lt from 100 to 125 mg/dL suggests IMPAIRED HOMEOSTASIS per A.D.A. criteria. Neutrophils (Bld) [#/Vol] 5.9 10*3/uL 2.0-7.7 [facility] Neutrophils/100 WBC (Bld) 67.5 % 47-70 [facility] Potassium [Moles/Vol] 3.9 mmol/L 3.5-5.1 [facility] Protein [Mass/Vol] 7.5 g/dL 6.4-8.2 [facility] Sodium [Moles/Vol] 139 mmol/L 136-145 [facility] WBC (Bld) [#/Vol] 8.8 10*3/uL 4.4-11.0 [facility] Blood erythrocytes count (nu mber/volume)Ordered By: Teodoro Kim on 04-05-2023 RBC (Bld) [#/Vol] 5.91 10*6/uL 4.6-6.2 [facility] Blood hemoglobin measurement (mass/volume)Ordered By: Teodoro Kim on 04-05-2023 Hemoglobin (Bld) [Mass/Vol] 12.1 g/dL 13.0-16.5 [facility] Blood lymphocytes/100 leukoc ytesOrdered By: Teodoro Kim on 04-05-2023 Lymphocytes/100 WBC (Bld) 23.3 % 19-41 [facility] Blood monocytes/100 leukocyt esOrdered By: Teodoro Kim on 04-05-2023 Monocytes/100 WBC (Bld) 7.1 % 0-10 [facility] Blood platelet mean volumeOr dered By: Teodoro Kim on 04-05-2023 Platelet mean volume (Bld) [Entitic vol] 10.4 fL 6.2-12.0 [facility] Determination of erythrocyte mean corpuscular volume (MCV)Ordered By: Teodoro Kim on 04-05-2023 MCV (RBC) [Entitic vol] 69.0 fL 80-94 [facility] Hematocrit Auto (Bld) [Volum e fraction]Ordered By: Teodoro Julio on 04-05-2023 Hematocrit (Bld) [Volume fraction] 40.8 % 40-54 [facility] - Chemistry and C hemistry - challengeOrdered By: [facility] ALP [Catalytic activity/Vol] 63 U/L 45-117 [facility] ALT [Catalytic activity/Vol] 26 U/L 16-61 [facility] CO2 [Moles/Vol] 25.0 mmol/L 21.0-32.0 [facility] Globulin (S) [Mass/Vol] 3.9 g/dL 2.2-4.2 [facility] Urea nitrogen/Creatinine [Mass ratio] 17.1 mg/mg 10-20 [facility] - Hematology and Cell countsOrdered By: [facility] 04-05-2023 Erythrocyte distribution width (RBC) [Entitic vol] 38.8 fL 35.1-43.9 [facility] Erythrocyte distribution width (RBC) [Ratio] 16.7 % 11.6-14.6 [facility] Immature granulocytes/100 WBC (Bld) 0.200 % 0.0-0.9 [facility] Comment on above: IG% - Immature Granu locytes (promyelocytes, myelocytes and metamyelocytes) > 1% indicates that a LEFT SHIFT is Present. MCH (RBC) [Entitic mass] 20.5 pg 27.0-32.0 [facility] Nucleated RBC/100 WBC (Bld) [Ratio] 0 % 0-5 [facility] MCHC Auto (RBC) [Mass/Vol]Or dered By: Teodoro Kim on 04-05-2023 MCHC (RBC) [Mass/Vol] 29.7 g/dL 32-36 [facility] No Panel InformationOrdered By: [facility] on 04-05-2023 Estimated GFR (MDRD) Amer 113 mL/min >60 [facility] Comment on above: GFR Calc Estimated GFR (MDRD) Non-Af Amer 93 mL/min >60 [facility] Comment on above: Non- GFR Calc Prostate Specific Antigen Screen 4.36 ng/mL 0.00-4.00 [facility] Comment on above: This test was perfor med using the TPSA assay method for the[employer] chemistry system. Values obtained with differentassay methods cannot be used interchangably.When changing PSA assays in the course of monitoring apatient, additional sequential testing should be carriedout to confirm baseline values. Thyroid Stimulating Hormone (TSH) 1.14 uIU/mL 0.358-3.74 [facility] Platelets bldOrdered By: Teodoro Kim on 04-05-2023 Platelets (Bld) [#/Vol] 217 10*3/uL 150-450 [facility] Serum or plasma albumin doron urement (mass/volume)Ordered By: Teodoro Kim on 04-05-2023 Albumin [Mass/Vol] 3.6 g/dL 3.2-5.0 [facility] Serum or plasma albumin/glob ulin mass ratioOrdered By: Teodoro Kim 04-05-2023 Albumin/Globulin [Mass ratio] 0.9 {ratio} 0.9-2.4 [facility] Serum or plasma calcium doron urement (mass/volume)Ordered By: Teodoro Kim 04-05-2023 Calcium [Mass/Vol] 8.8 mg/dL 8.5-10.1 [facility] Serum or plasma creatinine m easurement (mass/volume)Ordered By: Teodoro Kim 04-05-2023 Creatinine [Mass/Vol] 0.88 mg/dL 0.70-1.30 [facility] Comment on above: The validity of the calculated GFR & GFRAA in patients over 70 years has not been determined. Clinical correlation is essential. Serum or plasma urea nitroge n measurement (mass/volume)Ordered By: Teodoro Kim 04-05-2023 Urea nitrogen [Mass/Vol] 15 mg/dL 7-18 [facility] Thin prep Papanicolaou smear with manual screeningOrdered By: Teodoro Kim 04-05-2023 Thin prep Papanicolaou smear with manual screening 15 U/L 15-37 [facility] Thin prep Papanicolaou smear with manual screening 6 5-15 [facility] XR HIP RIGHT W/PELVIS 4 VIEW Son 02-08-2023 XR HIP RIGHT W/PELVIS 4 VIEWS ORIGINAL EXAMINATION: ONE XRAY VIEW OF THE PELVIS AND TWO XRAY VIEWS RIGHT HIP02/03/2023 8:32 am COMPARISON: None. HISTORY: ORDERING SYSTEM PROVIDED HISTORY: Reason for Exam: right hip pain Patient complains of chronic right hip pain, no known injury FINDINGS: There is no acute fracture or dislocation. The pelvic ring is intact. [place] projecting adjacent to the inferior pubic ramus, likely sequela of remote injury. Relatively symmetric, mild degenerative change of the bilateral hip joints. Partially imaged degenerative change of the bilateral SI joints and lower lumbar spine. IMPRESSION: No acute osseous abnormality. Mild degenerative change of the bilateral hips. I have personally reviewed the images of this examination and agree with the resident's findings and interpretation. 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 Strabismus In both eyes. Movement is turning in. Context: when tired. Since onset it is gradually improving. Associated symptoms include Negative for eye pain, blurred vision and headaches. Treatments tried include glasses and surgery. Comments Wears Specs FT but they had broke 3 months ago and has been wearing prescription sunglasses for time being Pt reports needs new Rx, slightly fuzzy vision and double vision only when tired Last edited by Verónica Marlow on 01/04/2023 10:22 AM. Ocular History: Ocular History Glasses Yes Refractive Error Yes Strabismus Yes Past Medical History: Past Medical History: Diagnosis Date HTN (hypertension) Past Surgical History: Procedure Laterality Date STRABISMUS SURGERY 02/18/2017 Review of Systems: ROS A complete ROS was performed. Pertinent positives have been documented above or are in the HPI. All other systems were negative. Allergies: No Known Allergies Medications: Current Outpatient Medications Medication Sig Dispense Refill Multiple Vitamin (MULTI-VITAMIN DAILY PO) Take by mouth Metoprolol-Hydrochlorot hiazide 25-12.5 MG TB24 Take by mouth lisinopril (PRINIVIL, ZESTRIL) 10 MG TABS tablet Take by mouth daily DOXEPIN HCL PO Take by mouth (Patient not taking: Reported on 01/04/2023) xeznqzay-dactrrevd-azpk methasone (MAXITROL) 0.1 % ophthalmic suspension instill 1 Drop into both eyes 4 times daily (Patient not taking: Reported on 07/24/2019) 10 mL 1 oxyCODONE-acetaminophen (PERCOCET) 5-325 MG tablet Take by mouth every 6 hours as needed for Pain (Patient not taking: Reported on 04/22/2021) doxazosin (CARDURA) 4 MG tablet Take by mouth daily (Patient not taking: Reported on 04/22/2021) IRON PO Take by mouth (Patient not taking: Reported on 04/22/2021) gabapentin (NEURONTIN) 300 MG capsule Take by mouth 3 times daily (Patient not taking: Reported on 04/22/2021) FINASTERIDE PO Take by mouth (Patient not taking: Reported on 04/22/2021) Amlodipine Besylate-Valsartan 10-160 MG TABS Take by mouth (Patient not taking: Reported on 04/22/2021) No current facility-administered medications for this visit. Family Medical History: Family History Problem Relation Age of Onset Diabetes Father Blindness Neg Hx ChildHD Cataract Neg Hx Strabismus Neg Hx Social History: Social History Social History Socioeconomic History Marital status: Unknown Spouse name: None Number of children: None Years of education: None Highest education level: None Tobacco Use Smoking status: Never Smokeless tobacco: Never Exam: Physical Exam Base Eye Exam Visual Acuity (HOTV - Blocked) Dist cc Near cc Right 20/25 J2 Left 20/30 J2 Both 20/25 Correction: Glasses Tonometry (I Care, 10:32 AM) Pressure Right 9 Left 8 Pupils Pupils APD Right PERRL None Left PERRL None Additional Tests Stereo Fly: + Animals: 3/3 Circles: 8/9 Strabismus Exam Method: Alternate cover Correction: cc Distance Near Near +3DS N Bifocals Ortho 0 0 0 0 0 0 E 6 0 0 Ortho 0 0 X 4 0 0 0 0 0 0 R Tilt L Tilt Nystagmus: none AHP: none Slit Lamp and Fundus Exam External Exam Right Left External Normal Normal Slit Lamp Exam Right Left Lids/Lashes Blepharitis, increased debris Inspissated meibomian glands increaed tear film debris Blepharitis, increased tear film debris Inspissated meibomian glands Conjunctiva/Sclera White and quiet White and quiet Cornea Clear Clear Anterior Chamber Deep and quiet Deep and quiet Iris Round and reactive Round and reactive Lens Clear Clear Vitreous Normal Normal Fundus Exam Right Left Disc Normal Normal C/D Ratio 0.1 0.1 Macula Normal Normal Vessels Normal Normal Refraction Wearing Rx Sphere Cylinder [place] Add Right +0.75 +0.75 175 +3.00 Left +0.75 +0.75 170 +3.00 Age: 1yrs Type: Bifocal Manifest Refraction Sphere Cylinder [place] Add Right +1.25 +0.75 175 +3.00 Left +1.00 +1.00 170 +3.00 Final Rx Sphere Cylinder [place] Add Right +1.25 +0.75 175 +3.00 Left +1.00 +1.00 170 +3.00 Impression/Plan/Recomme ndations: The patient was oriented to time, place, and person as appropriate for age and comorbidities. 1. Alternating esotropia 2. Blepharitis of both eyes, unspecified eyelid, unspecified type \ Stable doing well Specs FT FU [address] [facility] Absolute lymphocyte counton 04-01-2022 Lymphocytes Auto (Unsp spec) [#/Vol] 1.84 10*3/uL 0.83-4.51 [facility] Work Phone: Basophil percentageon 2021 Basophils/100 WBC (Bld) 0.4 % 0-1 [facility] Work Phone: Bilirubin [Mass/Vol] 0.60 mg/dL 0.20-1.00 [facility] Work Phone: Comment on above: For patients on eltr ombopag therapy, use of Dimension [place] TBIL is not recommended. Chloride [Moles/Vol] 109 mmol/L 98-107 [facility] Work Phone: Eosinophils/100 WBC (Bld) 1.5 % 0-5 [facility] Work Phone: Glucose [Mass/Vol] 86 mg/dL 74-106 [facility] Work Phone: Neutrophils (Bld) [#/Vol] 4.9 10*3/uL 2.0-7.7 [facility] Work Phone: Neutrophils/100 WBC (Bld) 65.1 % 47-70 [facility] Work Phone: Potassium [Moles/Vol] 4.2 mmol/L 3.5-5.1 [facility] Work Phone: Protein [Mass/Vol] 7.2 g/dL 6.4-8.2 [facility] Work Phone: Sodium [Moles/Vol] 140 mmol/L 136-145 [facility] Work Phone: WBC (Bld) [#/Vol] 7.5 10*3/uL 4.4-11.0 [facility] Work Phone: Blood erythrocytes count (nu mber/volume)on 04-01-2022 RBC (Bld) [#/Vol] 5.98 10*6/uL 4.6-6.2 [facility] Work Phone: Blood hemoglobin measurement (mass/volume)on 04-01-2022 Hemoglobin (Bld) [Mass/Vol] 12.7 g/dL 13.0-16.5 [facility] Work Phone: Blood lymphocytes/100 leukoc yteson 04-01-2022 Lymphocytes/100 WBC (Bld) 24.5 % 19-41 [facility] Work Phone: Blood monocytes/100 leukocyt eson 04-01-2022 Monocytes/100 WBC (Bld) 8.1 % 0-10 [facility] Work Phone: Blood platelet mean volumeon 04-01-2022 Platelet mean volume (Bld) [Entitic vol] 11.0 fL 6.2-12.0 [facility] Work Phone: [phone] Determination of erythrocyte mean corpuscular volume (MCV)on 04-01-2022 MCV (RBC) [Entitic vol] 68.7 fL 80-94 [facility] Work Phone: [phone] Hematocrit Auto (Bld) [Volum e fraction]on 04-01-2022 Hematocrit (Bld) [Volume fraction] 41.1 % 40-54 [facility] Work Phone: [phone] Laboratory - Chemistry and C hemistry - challengeon 04-01-2022 ALP [Catalytic activity/Vol] 57 U/L 45-117 [facility] Work Phone: [phone] ALT [Catalytic activity/Vol] 35 U/L 16-61 [facility] Work Phone: [phone] CO2 [Moles/Vol] 22.0 mmol/L 21.0-32.0 [facility] Work Phone: [phone] Globulin (S) [Mass/Vol] 3.3 g/dL 2.2-4.2 [facility] Work Phone: [phone] Urea nitrogen/Creatinine [Mass ratio] 13.7 mg/mg 10-20 [facility] Work Phone: [phone] Laboratory - Hematology and Cell countson 04-01-2022 Erythrocyte distribution width (RBC) [Entitic vol] 39.0 fL 35.1-43.9 [facility] Work Phone: [phone] Erythrocyte distribution width (RBC) [Ratio] 17.7 % 11.6-14.6 [facility] Work Phone: [phone] Immature granulocytes/100 WBC (Bld) 0.400 % 0.0-0.9 [facility] Work Phone: [phone] Comment on above: IG% - Immature Granu locytes (promyelocytes, myelocytes and metamyelocytes) > 1% indicates that a LEFT SHIFT is Present. MCH (RBC) [Entitic mass] 21.2 pg 27.0-32.0 [facility] Work Phone: Nucleated RBC/100 WBC (Bld) [Ratio] 0 % 0-5 [facility] Work Phone: MCHC Auto (RBC) [Mass/Vol]on 04-01-2022 MCHC (RBC) [Mass/Vol] 30.9 g/dL 32-36 [facility] Work Phone: No Panel Informationon 04-01 Estimated GFR (MDRD) Amer 103 mL/min >60 [facility] Work Phone: Comment on above: GFR Calc Estimated GFR (MDRD) Non-Af Amer 85 mL/min >60 [facility] Work Phone: Comment on above: Non- GFR Calc Thyroid Stimulating Hormone (TSH) 1.15 uIU/mL 0.358-3.74 [facility] Work Phone: Platelets bldon 04-01-2022 Platelets (Bld) [#/Vol] 209 10*3/uL 150-450 [facility] Work Phone: Serum or plasma albumin doron urement (mass/volume)on 04-01-2022 Albumin [Mass/Vol] 3.9 g/dL 3.2-5.0 [facility] Work Phone: Serum or plasma albumin/glob ulin mass ratioon 04-01-2022 Albumin/Globulin [Mass ratio] 1.2 {ratio} 0.9-2.4 [facility] Work Phone: [phone] Serum or plasma calcium doron urement (mass/volume)on 04-01-2022 Calcium [Mass/Vol] 8.8 mg/dL 8.5-10.1 [facility] Work Phone: [phone] Serum or plasma creatinine m easurement (mass/volume)on 04-01-2022 Creatinine [Mass/Vol] 0.95 mg/dL 0.70-1.30 [facility] Work Phone: Comment on above: The validity of the calculated GFR & GFRAA in patients over 70 years has not been determined. Clinical correlation is essential. Serum or plasma urea nitroge n measurement (mass/volume)on 04-01-2022 Urea nitrogen [Mass/Vol] 13 mg/dL 7-18 [facility] Work Phone: Thin prep Papanicolaou smear with manual screeningon 04-01-2022 Thin prep Papanicolaou smear with manual screening 25 U/L 15-37 [facility] Work Phone: Thin prep Papanicolaou smear with manual screening 9 5-15 [facility] Work Phone: Vital Signs Date Time Vital Sign Value Performing Clinician Faci lity 01-29-2025 08:45-0400 Body height 190.[address] Teodoro Kim MD Work Phone: [facility] 01-29-2025 08:45-0400 Body mass index (BMI) [Ratio] 36.7 kg/m2 Dr. Teodoro Kim MD Work Phone: [facility] 01-29-2025 08:45-0400 Body weight 133.[address] Teodoro Kim MD Work Phone: [facility] 01-29-2025 08:45-0400 Diastolic blood pressure 88 mm[Hg] Dr. Teodoro Kim MD Work Phone: [facility] 01-29-2025 08:45-0400 Heart rate 66 /min Dr. Teodoro Kim MD Work Phone: [facility] 01-29-2025 08:45-0400 Respiratory rate 18 /min Dr. Teodoro Kim MD Work Phone: [facility] 01-29-2025 08:45-0400 Systolic blood pressure 147 mm[Hg] Dr. Teodoro Kim MD Work Phone: [facility] 01-04-2025 08:45-0400 Body height 190.[address] Teodoro Kim MD Work Phone: [facility] 01-04-2025 08:45-0400 Body mass index (BMI) [Ratio] 36.8 kg/m2 Dr. Teodoro Kim MD Work Phone: [facility] 01-04-2025 08:45-0400 Body weight 133.[address] Teodoro Kim MD Work Phone: [facility] 01-04-2025 08:45-0400 Diastolic blood pressure 90 mm[Hg] Dr. Teodoro Kim MD Work Phone: [phone] [place] [address] 01-04-2025 08:45-0400 Heart rate 63 /min Dr. Teodoro Kim MD Work Phone: [phone] [place] [address] 01-04-2025 08:45-0400 Respiratory rate 18 /min Dr. Teodoro Kim MD Work Phone: [phone] [place] [address] 01-04-2025 08:45-0400 SaO2% (BldA) [Mass fraction] 95 % Dr. Teodoro Kim MD Work Phone: [phone] [place] [address] 01-04-2025 08:45-0400 Systolic blood pressure 173 mm[Hg] Dr. Teodoro Kim MD Work Phone: [phone] [place] [address] 11-21-2024 10:18-0400 Body height 190.[address] Teodoro Kim MD Work Phone: [phone] [place] [address] 11-21-2024 10:18-0400 Body mass index (BMI) [Ratio] 36.2 kg/m2 Dr. Teodoro Kim MD Work Phone: [phone] [place] [address] 11-21-2024 10:18-0400 Body weight 131.[address] Teodoro Kim MD Work Phone: [facility] 11-21-2024 10:18-0400 Diastolic blood pressure 75 mm[Hg] Dr. Teodoro Kim MD Work Phone: [phone] [place] [address] 11-21-2024 10:18-0400 Heart rate 49 /min Dr. Teodoro Kim MD Work Phone: [facility] 11-21-2024 10:18-0400 Respiratory rate 16 /min Dr. Teodoro Kim MD Work Phone: [phone] [place] [address] 11-21-2024 10:18-0400 Systolic blood pressure 129 mm[Hg] Dr. Teodoro Kim MD Work Phone: [facility] Encounters Encounter Date Encounter Type Care Provider Facility Start: 01-29-2025 End: 01-29-2025 Patient encounter procedure Arun PRATHER -[facility] Work Phone: Start: 01-29-2025 End: 01-29-[address] Teodoro Kim MD Work Phone: [facility] Work Phone: Start: 01-04-2025 End: 01-04-2025 Patient encounter procedure Arun PRATHER -[facility] Work Phone: Start: 01-04-2025 End: 01-04-[address] Teodoro Kim MD Work Phone: [facility] Work Phone: Start: 11-21-2024 End: 11-21-[address] Micheal Rueda MD -[facility] Work Phone: Start: 11-21-2024 End: 11-21-2024 ambulatory Micheal Rueda [place] Start: 11-19-2024 End: 11-19-[address] Teodoro Kim MD Work Phone: [facility] Work Phone: Start: 11-19-2024 End: 11-19-[address] Teodoro Kim MD -Cardiovascular Services Work Phone: Start: 11-19-2024 End: 11-19-2024 ambulatory Teodoro Kim Facility:[facility] Start: 10-04-2024 End: 10-04-[address] Teodoro Kim MD -Laboratory Work Phone: Start: 10-04-2024 End: 10-04-2024 ambulatory Teodoro Chi Julio Facility:[facility] Start: 04-09-2024 End: 04-09-2024 ambulatory Teodoro Chi Julio Facility:[facility] Start: 11-24-2023 Non-patient / Non-visit Dr. Singh Kim Work Phone: [facility] Start: 11-24-2023 End: 11-24-[address] Teodoro Kim Work Phone: [facility] Work Phone: Start: 11-24-2023 End: 11-24-[address] Teodoro Kim Work Phone: [facility]-Cardiovascular Services Work Phone: Start: 10-10-2023 End: 10-10-2023 ambulatory [facility] Work Phone: Start: 10-10-2023 End: 10-10-2023 Patient encounter procedure [facility]-Pulmonary Services/Neurology Work Phone: Start: 10-06-2023 End: 10-06-2023 ambulatory [facility] Work Phone: Start: 10-06-2023 End: 10-06-2023 Patient encounter procedure [facility]-Laboratory, Phy Office 3rd Flr Start: 04-05-2023 End: 04-05-2023 ambulatory [facility] Work Phone: Start: 04-05-2023 End: 04-05-2023 Patient encounter procedure [facility]-Laboratory, Phy Office 3rd Flr Start: 02-03-2023 End: 02-04-[address] ALTON KIM MD Facility:[facility] Start: 02-03-2023 End: 02-03-[address] ALTON KIM MD [facility] Start: 01-04-2023 End: 01-04-2023 ambulatory [facility] Start: 04-01-2022 End: 04-01-2022 Patient encounter procedure [facility]-Laboratory Procedures Date Procedure Procedure Detail Performing Clinician Start: 11-21-2024 Evaluation of diagno stic study results Dr. Teodoro Kim MD Work Phone: Start: 10-04-2024 Measurement of renal function Dr. Teodoro Kim MD Work Phone: Comment on above: GFR Calc Start: 10-04-2024 Vitamin D, 25-hydrox y measurement Dr. Teodoro Kim MD Work Phone: Comment on above: Vitamin D 25(OH) Sta tus Range Deficiency <20 ng/mL (50nmol/L) Insufficiency 20 - 30 ng/mL (50 - 75 nmol/L) Sufficiency 30 - 100 ng/mL (75 - 250 nmol/L) Toxicity >100 ng/mL (>250 nmol/L) Rotator cuff includi ng muscles and tendons (body structure) DR ALTON KIM MD Septum of frontal si nuses (body structure) DR ALTON KIM MD Plan of Treatment Date Care Activity Detail Author Basic metabolic 2008 panel with ionized calcium - Serum or Plasma [facility] Immunizations Immunization Date Immunization Notes Care Provider Fa cility 11-24-2020 COVID-19, mRNA, LNP- S, PF, 100 mcg or 50 mcg dose; Translations: [Moderna COVID-19 Vaccine] DR ALTON KIM MD [facility] Vaccine [facility] 10-27-2020 COVID-19, mRNA, LNP- S, PF, 100 mcg or 50 mcg dose; Translations: [Moderna COVID-19 Vaccine] DR ALTON KIM MD [facility] Vaccine [facility] 11-08-2018 influenza, injectable,quadrivalent , preservative free, pediatric [facility] 11-08-2018 influenza, injectabl e, quadrivalent, preservative free DR ALTON KIM MD [facility] Payers Date Payer Category Payer Medicare [id number] 2024 Private Health Insurance [id number] 2024 Self-pay [id number] 2023 Private Health Insurance [id number] 1960 Unknown [id number] [id number] [id number] 1960 Unknown [id number] [id number] Private Health Insurance [employer] [id number] Unknown [id number] 2.16.8 [id number] Unknown [id number] 2.16.8 [id number] Unknown [id number] 2.16.8 [id number] Unknown [id number] 2.16.8 [id number] Unknown [id number] 2.16.8 [id number] Unknown [id number] 2.16.8 [id number] Social History Date Type Detail Facility Start: 04-04-2019 End: 04-04-2019 Tobacco smoking status ALIS Unknown if ever smoked [facility] Start: 11-13-2018 None [place] Start: 11-13-2018 Spouse/ Signif icant Other [facility] Start: 04-04-2019 Non-smoker [place] Start: 1960 Sex Assigned At Male A [facility] Start: 09-27-2018 End: 04-04-2019 Tobacco smoking status Ex-smoker (finding) [facility] Start: 11-22-2024 Sex Male (finding) [facility] Evaluation note 11-21-2024 Note Date & Type Note Facility 11-21-2024 Evaluation note Diagnosis Onset Date Resolution Essential (primary) hypertension acute November 21, 2024 10:01am Syncope acute November 21 10:01am [facility] Work Phone: Evaluation note 11-21-2024 Note Date & Type Note Facility 11-21-2024 Evaluation note Diagnosis Onset Date Resolution Essential (primary) hypertension acute November 21, 2024 10:01am Syncope acute November 21 10:01am Essential (primary) hypertension acute January 04, 2025 8 :41am Syncope acute January 04, 2025 8:41am [place] [facility] Work Phone: Evaluation note 11-21-2024 Note Date & Type Note Facility 11-21-2024 Evaluation note Diagnosis Onset Date Resolution Essential (primary) hypertension acute November 21, 2024 10:01am Syncope acute November 21 10:01am Essential (primary) hypertension acute January 04, 2025 8 :41am Palpitation acute January 04 8:41am Syncope acute January 04, 2025 8:41am Essential (primary) hypertension acute January 29, 2025 8:40am Palpitation acute January 29 8:40am Syncope acute January 29 8:40am [place] [facility] Work Phone: Evaluation + Plan note Note Date & Type Note Facility Evaluation + Plan note No data available for this section [facility] Evaluation note Note Date & Type Note Facility Evaluation note No assessment information availa [facility] Work Phone: Hospital Discharge instructions Note Date & Type Note Facility Hospital Discharge instructions No data available for this section [facility] Progress note Note Date & Type Note Facility Progress note No data available for this section [facility] Reason for referral (narrative) Note Date & Type Note Facility Reason for referral (narrative) No reason for referral information available [facility] Work Phone: Chief Complaint and Reason for Visit Chief Complaint NEED ORDER Chief Complaint SOB Chief Complaint Admit Date SYNCOPE November 19, 2024 10: 27am Syncope (Julio) November 21, 2024 10:0 1am Reason for Visit Admit Date Essential (primary) hypertension November 212024 10:01am Syncope November 21, 2024 10:0 1am Chief Complaint Admit Date SYNCOPE November 19, 2024 10: 27am SYNCOPE AND COLLAPSE November 19, 2024 10 :35am Syncope (Julio) November 21, 2024 10:0 1am 6 W FU January 04, 2025 8:41a m Reason for Visit Admit Date Essential (primary) hypertension November 212024 10:01am Syncope November 21, 2024 10:0 1am Essential (primary) hypertension December 8:41am Syncope January 04, 2025 8:41a m Chief Complaint Admit Date SYNCOPE November 19, 2024 10: 27am SYNCOPE AND COLLAPSE November 19, 2024 10 :35am Syncope (Julio) November 21, 2024 10:0 1am 6 W FU January 04, 2025 8:41a m 4 W FU January 29, 2025 8:40 am Reason for Visit Admit Date Essential (primary) hypertension November 212024 10:01am Syncope November 21, 2024 10:0 1am Essential (primary) hypertension December 8:41am Palpitation January 04, 2025 8:41a m Syncope January 04, 2025 8:41a m Essential (primary) hypertension January 292024 8:40am Palpitation January 29, 2025 8:40 am Syncope January 29, 2025 8:40 am Family History No Family History Records Found Relationship Condition Age at Onset Recorded Date/T cristobal Unknown Family History?No pertinent history Unkno wn November 13, 2018 6:17pm Family History?No pertinent history Unkno wn November 13, 2018 6:17pm Relationship Condition Age at Onset Recorded Date/T cristobal Unknown Family History?No pertinent history Unkno wn November 13, 2018 5:17pm Family History?No pertinent history Unkno wn November 13, 2018 5:17pm Relationship Condition Age at Onset Recorded Date/T cristobal father Diabetes mellitus Unknown Transient ischemic attack Unknown Hyperlipidemia Unknown Advance Directives No Advanced Directives Records Found Advance Directive Response Recorded Date/ Time Living Will No Toyei 21st, 201 9 3:33pm Power of Afloat Cryptologic Manager Yes April 11 019 3:33pm Advance Directive Response Recorded Date/ Time Living Will No April 11 2:33pm Power of Afloat Cryptologic Manager Yes April 11 019 2:33pm Summary Purpose Additional Source Comments Goals (unrecognized section and content) Goals may be documented in a n alternate section No data available for this sectionGoals may be documented in an alternate sectionGoals may be documented in an alternate sectionGoals may be documented in an alternate sectionGoals may be documented in an alternate sectionGoals may be documented in an alternate sectionGoals may be documented in an alternate sectionGoals may be documented in an alternate section (unrecognized sect ion and content) No Status Records FoundNo Status Records FoundNo Status Records Found INFORMATION SOURCE (unrecogn ized section and content) DATE CREATED AUTHOR 01/05/2023 [facility] DATE CREATED AUTHOR AUTHOR'S ORGANIZ ATION 02/09/2023 [facility] DATE CREATED AUTHOR AUTHOR'S ORGANIZ ATION 02/05/2025 [facility] Patient Care team informatio n (unrecognized section and content) Team Status: Active Member Role Status Dates Dr. Teodoro Kim MD Family Provider Active Dr. Teodoro Kim MD Primary Care Provider Active Team Status: Inactive Member Role Status Dates Dr. Teodoro Kim MD Primary Care Provider, Attending Provider Active Team Status: Active Member Role Status Dates Dr. Teodoro Kim MD Primary Care Provi mayo, Attending Provider, Referring Provider Active Team Status: Inactive Member Role Status Dates Dr. Teodoro Kim MD Primary Care Provi mayo, Attending Provider, Referring Provider Active Team Status: Active Member Role Status Dates Dr. Teodoro Kim MD Primary Care Provider Active Dr. Micheal Rueda MD Attending Provider Active Team Status: Active Member Role Status Dates Dr. Teodoro Kim MD Primary Care Provider Active Team Status: Inactive Member Role Status Dates Dr. Teodoro Kim MD Primary Care Provider Active Start: October 04, 2024 End: October 04, 2024 Dr. Teodoro Kim MD Attending Provider Active Start: October 04, 2024 End: October 04, 2024 Dr. Teodoro Kim MD Referring Provider Active Start: October 04, 2024 End: October 04, 2024 Team Status: Inactive Member Role Status Dates Dr. Teodoro Kim MD Primary Care Provider Active Start: November 19, 2024 End: November 19, 2024 Dr. Teodoro Kim MD Attending Provider Active Start: November 19, 2024 End: November 19, 2024 Dr. Teodoro Kim MD Referring Provider Active Start: November 19, 2024 End: November 19, 2024 Team Status: Inactive Member Role Status Dates Dr. Teodoro Kim MD Primary Care Provider Active Start: November 21, 2024 End: November 21, 2024 Dr. Teodoro Kim MD Referring Provider Active Start: November 21, 2024 End: November 21, 2024 Dr. Micheal Rueda MD Attending Provider Active S tart: November 21, 2024 End: November 21, 2024 Team Status: Active Member Role Status Dates Dr. Steven Biggs MD Attending Provider Active Start: November 19, 2024 Dr. Teodoro Kim MD Referring Provider Active Start: November 19, 2024 Team Status: Inactive Member Role Status Dates Dr. Teodoro Kim MD Primary Care Provider Active Start: January 04, 2025 End: January 04, 2025 Dr. Teodoro Kim MD Referring Provider Active Start: January 04, 2025 End: January 04, 2025 CRESCENCIO Sanders Attending Provider Active St art: January 04, 2025 End: January 04, 2025 Team Status: Inactive Member Role Status Dates Dr. Teodoro Kim MD Primary Care Provider Active Start: January 29, 2025 End: January 29, 2025 Dr. Teodoro Kim MD Referring Provider Active Start: January 29, 2025 End: January 29, 2025 CRESCENCIO Sanders Attending Provider Active St art: January 29, 2025 End: January 29, 2025 FOR RECORDS PERTAINING TO PATIENTS WHO ARE [...] BE BASED ON THE PRIMARY CLINICAL RECORDS. [facility] provides no warranty or guarantee of the accuracy or completeness of information in this document.
== END | disposition home or self-care (01) ==
LOC: LAB 10:54
PROVIDERS: PCP Family Medicine Geriatric Medicine; Referring Provider Student in an Organized Health Care Education/Training Program; Visit Provider Student in an Organized Health Care Education/Training Program
DX: I10 Essential (primary) hypertension (principal)
CPT/HCPCS: 36415; 80048

== ENCOUNTER → 2025-04-10 | Outpatient (CLI) | payer MEDICARE, OTHER, SELFPAY ==
[2025-04-10 11:07] LABS: Hematocrit 42.5 % (40-54); Hemoglobin 13.1 g/dL (13.0-16.5); Immature Granulocytes Count 0.030 X10^3/uL (0.0-0.0); Mean Corp Hgb Conc 30.8 g/dL (32-36); Mean Corpuscular Volume 69.0 fL (80-94); Mean Platelet Vol. 10.2 fl (6.2-12.0); NRBC Flagged by Analyzer 0 % (0-5); Platelet Count 253 K/mm3 (150-450); RBC Distribution Width CV 17.2 % (11.6-14.6); RBC Distribution Width SD 38.5 fl (35.1-43.9); Red Blood Count 6.16 M/mm3 (4.6-6.2); White Blood Count 8.1 K/mm3 (4.4-11.0)
--- NOTE | 2025-04-10 11:10 | RAD_ITS ---
PROCEDURE: L/S SPINE MIN 4 VIEWS 04/10/2025 REASON FOR EXAM: LOW BACK PAIN TECHNIQUE: L/S SPINE MIN 4 VIEWS COMPARISON: None FINDINGS: There is levocurvature of the lower lumbar region with less than 10 degrees of variance, which can indicate spasm. There is loss of disc height at each level. There is moderate facet sclerosis. Vertebral body height is maintained. There is no visible fracture. Mineralization is normal. There is visible atherosclerosis. RAD/L/S Spine Min 4 Views IMPRESSION: There is levocurvature of the lower lumbar region with less than 10 degrees of variance, which can indicate spasm. There is loss of disc height at each level. Reading Location: [facility]
[2025-04-10 11:54] LABS: PSA,Total- Diagnostic 1.84 ng/mL (0.00-4.00)
[2025-04-10 12:02] LABS: AST(SGOT) 31 U/L (<=37); Alanine Aminotransfer ALT/SGPT 54 U/L (<=46); Albumin, Serum 4.3 g/dL (3.4-4.8); Alkaline Phosphatase 59 U/L (40-129); Anion Gap 12 (5-15); BUN 20 mg/dL (4-19); BUN/Creat Ratio 21.9 RATIO (10-20); Calcium,Total 9.4 mg/dL (7.6-11.0); Carbon Dioxide 22.2 mmol/L (21.0-32.0); Chloride 106 mmol/L (98-108); Cholesterol 199 mg/dL (<=200); Globulin 3.2 g/dL (2.2-4.2); Glucose 126 mg/dL (70-99); Low Density Lipoprotein Calc. 103 mg/dL; Potassium 4.4 mmol/L (3.3-5.1); Triglycerides 213 mg/dL; Very Low Density Lipoprotein 43 mg/dL (5-40); Vitamin D,25 Hydroxy 19.5 ng/mL (30-100); cholesterol:hdl ratio screen 3.75
[2025-04-10 18:48] LABS: Xtra Tube Kwok EXTRA TUBE
== END | disposition home or self-care (01) ==
PROVIDERS: Urology; PCP Family Medicine Geriatric Medicine; Referring Provider Family Medicine Geriatric Medicine; Visit Provider Family Medicine Geriatric Medicine
DX: M54.50 Low back pain, unspecified (principal); R97.20 Elevated prostate specific antigen [PSA]; I10 Essential (primary) hypertension; E78.5 Hyperlipidemia, unspecified; E55.9 Vitamin D deficiency, unspecified
CPT/HCPCS: 36415; 72110; 80053; 80061; 82306; 84153; 84443; 85025

== ENCOUNTER 2025-05-27 13:30 | Outpatient (RCR) | payer MEDICARE, OTHER, SELFPAY ==
--- NOTE | 2025-04-29 13:28 | HP.PTEVAL ---
Patient's Visit Information Visit Information Visit Information: FERNANDA SCHMITZ is a 65 year old M referred to Physical Therapy by Dr. Teodoro Olson MD with a diagnosis of LOW BACK PAIN. Date of Evaluation: 04/26/25 Physical Therapist: Chen Zaman PT, Cert MDT Visit Plan Frequency: 2x /Week Duration: 4-6 Weeks Plan: *PATIENT IS HAVING BLOOD PRESSURE ISSUES, VERTIGO AND BLACKED OUT TWICE WITH HOSPITALIZATION IN MAY 2024* POSTURE CORRECTION/STRENGTHENING, INSTRUCTION IN APPROPRIATE BODY MECHANICS AND ACTIVITY MODIFICATIONS. DLS STARTING WITH A NEUTRAL SPINE PROGRESSING ROM TOLERATED. GAIT TRAINING (WITH LEAST AD) ON LEVEL SURFACES AND UP AND DOWN STEPS. AROLDO LE ROM, STRETCHING AND STRENGTHENING. CONSIDER AQUATIC THERAPY IF NOT TOLERATING LAND PT. HEP INSTRUCTION. Subjective Subjective: Work/Leisure: RETIRED Disability: NO Present symptoms: R LOW BACK. INTERMITTENT L HIP PAIN. WEAKNESS IN [place]. DENIES GROIN PAIN. Present since: CHRONIC - YEARS - JR. H[employer] FO[employer]. Pain Scale: WORST 9/10, LEAST 4/10 Currently: 4/10 Is it getting better, worse or staying the same: STAYING THE SAME Commenced as a result of: NO APPARENT REASON Worse: TWISTING TO WIPE SELF IN [place] AT CABIN. AT CABIN IN GENERAL. TWISTING. BENDING OVER. STANDING. WALKING. Better: SITTING CERTAIN WAYS, LYING FLAT ON BACK ON BED AT CABIN IS BETTER THAN OTHER POSITIONS AT CABIN BUT NOT GOOD SITTING IN CHAIR NOW. Disturbed sleep: YES Previous history/Previous treatment: CHIROPRACTIC INCLUDING MANIPULATIONS AND OTHER TREATMENTS WITH LAST TIME BEING ABOUT 20 YEARS AGO. Treatment this episode: CURRENTLY ON [address] OLSON AND HAS F/U CHUCK'T WITH HIM TODAY. STATES FEELING BETTER SINCE STARTING THEM AND ALSO REC'D SEVERAL SHOTS LAST VISIT WITH BENEFIT. Coughing/sneezing/straining: POSITIVE FOR INCREASED PAIN. Gait: AT TIMES NEEDS TO USE A WALKER AND SOMETIMES MOST OF THE DAY. SOMETIMES SEVERAL DAYS IN A ROW NEEDS TO USE A WALKER. KEEPS A CANE IN CAR. HAS A MOTOR HOME AND STATES CAN'T DEAL WITH THE STEPS GETTING IN/OUT. Bowel or Bladder Dysfunction: DENIES INCONTINENCE. INFORMED PATIENT HE SHOULD SEEK MEDICAL CONDITION IF EXPERIENCES SUDDEN LOSS OF BOWEL OR BLADDER CONTROL. Accidents: YES - FELL OF SEMI-TRUCK - TORE R ROTATOR CUFF. Unexplained weight loss: NO Imaging: LUMBAR X-RAY 04/10/25: IMPRESSION: There is levocurvature of the lower lumbar region with less than 10 degrees of variance, which can indicate spasm. There is loss of disc height at each level. PMH/Recent major surgery: PMH: History of deviated nasal septum Hyperglycemia Essential (primary) hypertension Major depressive disorder Vitamin D deficiency Hyperlipidemia SOB (shortness of breath) Obesity Syncope Anxiety Obstructive sleep apnea Elevated PSA Benign prostatic hyperplasia New onset atrial fibrillation Hx of repair of rotator cuff - R Pain LOW BACK: Pain Intensity (Out of 10): 5 Pain Intensity Range: 4 and 9 Comment: 4-5/10 - CENTRAL AND RIGHT L HIP: Pain Intensity (Out of 10): 4 Pain Intensity Range: Unrated Objective Objective: Sitting/Standing Posture: L ILIAC CREST HIGHER THAN R. DECREASED LORDOSIS. INCREASED TRUNK FLEXION BUT PATIENT REPORTS HE IS A LOT MORE UPRIGHT NOW THAN HE WAS BEFORE HE STARTED TAKING THE PRESCRIPTION MEDICATION HE IS CURRENTLY ON. Active Correction of posture: PATIENT IS ONLY ABLE TO PARTIALLY CORRECT. DOES NOT MAINTAIN. Other Observations: THIS PATIENT EXPRESSES FRUSTRATION DURING THE EVALUATION ABOUT HIS PAIN AND DECREASED FUNCTION REPORTING HE RECENTLY WAS NOT ABLE TO PARTICIPATE IN ACTIVITIES DESIRED WITH HIS GRANDCHILDREN PROMPTING HIM TO SEEK HELP. HE AMBULATES INDEP'LY INTO PT WITHOUT ANY AD'S WITH INCREASED TRUNK FLEXION, DECREASED CADANCE AND DECREASED AROLDO STRIDE LENGTH. NO LOB. HE IS INDED WITH TRANSFERS SIT TO STAND AND REVERSE WITH UE ASSIST. HE IS ABLE TO HEEL WALK AND TOE WALK WITH LIGHT 1 UE ASSIST. Sensory deficit: AROLDO LE LIGHT TOUCH SENSATION GROSSLY INTACT AND SYMMETRICAL ROM deficit: AROLDO LE HIP ROTATION, HS AND CALF TIGHTNESS R>L. Motor deficit: AROLDO LE'S GROSSLY 5/5 WITH MMT'ING EXCEPT HIP'S 4/5. Dural Signs: NEGATIVE AROLDO LE'S. Lumbar mvmt loss: flex - MOD - INCREASES LB - NW ext - DEB - NW R SG - DEB - INCREASES R LB - NW L SG - DEB - INCREASES L HIP - NW Core strength: POOR Palpation: MILD TENDERNESS [id number] REGION Balance/Special Test Scores Oswestry Low Back Score: 26 Goals Goal 1:: DECREASE C/O LOW BACK PAIN BY AT LEAST 50% TO EASE ADL'S. Goal Time Frame: 4-6 Weeks Goal 2:: PATIENT WILL BE ABLE TO WALK FOR AT LEAST 10 MINUTES WITHOUT AD AND WITHOUT AGGREVATION OF SYMPTOMS >2/10 IN ORDER TO PERFORM ADL'S AND IADL'S. Goal Time Frame: 4-6 Weeks Goal 3:: PATIENT WILL COMPLETE 10 STANDS IN 30 SECS WITHOUT UE ASSIST TO DEMONSTRATE IMPROVED FUNCTIONAL STRENGTH Goal Time Frame: 4-6 Weeks Goal 4:: PATIENT WILL BE ABLE TO NEGOTIATE STEPS WITH 1 HR WITH RECIPROCAL PATTERN WITHOUT LIMITATIONS. Goal Time Frame: 4-6 Weeks Goal 5:: PATIENT WILL BE INDEP WITH APPROPRIATE STRENGTHENING EX'S TO ASSIST WITH STABILIZATION AND MOVEMENT OF THE SPINE TO HELP NORMALIZE GAIT. Goal Time Frame: 4-6 Weeks Goal 6:: PATIENT WILL BE INDEP WITH APPROPRIATE STRETCHING EX'S TO DECREASE STRESS ON THE SPINE AND HELP NORMALIZE GAIT. Goal Time Frame: 4-6 Weeks Rehabilitation Potential Physical Therapy Diagnosis: CORE AND LE WEAKNESS AND STIFFNESS WITH GAIT DIFFICULTY Rehabilitation Potential: Good Anticipated Interventions Patient/Client Instruction: Educate patient on: Condition, Plan of Care and Risk Factors For the Purpose of:: To improve self management Therapeutic Exercise to Include: Strength training, Body mechanics, Postural training, Flexibilty training, Gait and locomotor training, Neuromotor development, In an aquatic setting and Dynamic Lumbar Stabilization For the Purpose of:: To decrease pain, To increase ROM, To improve muscle performance and motor function, To improve ability to perform ADL's, To increase tolerance to activity/condition/position, To improve ability of physical actions for home/community/work/leisure, To improve gait and locomotor functions, To increase flexibility/ROM, To improve self management and To improve ability to perform tasks related to life management Cryotherapy (ice pack, ice massage): Yes Thermo therapy (hot pack): Yes For the Purpose of:: To decrease pain, To decrease swelling/inflammation and To improve nutrient delivery to tissue Text: Thank you for the opportunity to evaluate your patient. For Medicare and Medicare HMO plans, please review the plan of care and approve it. It will need to be FAXED BACK to us at [phone] for Medicare purposes. For Medicare only, by signing this I certify the plan of care. Please let me know if there are questions or concerns regarding this plan of care. Physician Signature: Date:
--- NOTE | 2025-05-27 14:55 | HP.PTDCSUM ---
Discharge Summary D/C summary: It has been my pleasure to treat FERNANDA SCHMITZ referred by Dr. Teodoro Olson MD, with the diagnosis of LOW BACK PAIN for a total of 8 visit(s). Discharge Date: 05/27/25 Please see the following information for a summary of their discharge status. Subjective Subjective: PATIENT REPORTS THAT EVEN ON A BAD DAY HE IS A LOT BETTER THAN HE WAS BEFORE STARTING PT. PATIENT REPORTS THE PAIN IS ABOUT 1/2 WHAT IT WAS. I CAN FUNCTION NOW. HE STATES HE HAS LOST ABOUT 20 LBS SINCE STARTING PT. HE REPORTS THAT BEFORE STARTING PT HE WAS ABOUT TO LET THEM DO SURGERY. PATIENT REPORTS INCREASED BACK PAIN TODAY FOR NO APPARENT REASON OTHER THAN MAYBE OVER-DOING IT WITH HIS HEP. PATIENT REPORTS THEY CHANGED HIS BLOOD PRESSURE MEDICATION AGAIN AND ABOUT A WEEK OR SO AGAIN AND HE THINKS IT IS HELPING. PATIENT REPORTS HE GOT THE MOTOR HOME OUT OF STORAGE, WINTERIZED IT AND TOOK IT BACK WHICH IS A MULTI-HOUR PROJECT WHICH IS SOMETHING HE COULDN'T HAVE DONE BEFORE. HE STATES HE WAS ABLE TO GO UP AND DOWN THE STEPS IN/OUT OF THE MOTOR HOME SO MUCH EASIER AND NOW THEY ARE CONSIDERING NOT SELLING IT. Pain LOW BACK: Pain Intensity (Out of 10): 5 L HIP: Pain Intensity (Out of 10): 0 Overall Improvement % Improvement: 50 Objective Objective/Function: PATIENT WAS SEEN TODAY FOR RE-ASSESSMENT OF PROGRESS TOWARD THE SET PT GOALS AND THE NEED FOR FURTHER PHYSICAL THERAPY VS READINESS FOR DISCHARGE. UPON EXAM TODAY: PATIENT IS INDEP WITH AN APPROPRIATE HEP. PATIENT AND THIS PT ANTICIPATE CONTINUED IMPROVEMENT WITH TIME AND EXERCISE. Goals Goal 1:: DECREASE C/O LOW BACK PAIN BY AT LEAST 50% TO EASE ADL'S. Goal Progress: Goal Met Goal 2:: PATIENT WILL BE ABLE TO WALK FOR AT LEAST 10 MINUTES WITHOUT AD AND WITHOUT AGGREVATION OF SYMPTOMS >2/10 IN ORDER TO PERFORM ADL'S AND IADL'S. Goal Progress: Progressing Goal 3:: PATIENT WILL COMPLETE 10 STANDS IN 30 SECS WITHOUT UE ASSIST TO DEMONSTRATE IMPROVED FUNCTIONAL STRENGTH Goal Progress: Progressing Goal 4:: PATIENT WILL BE ABLE TO NEGOTIATE STEPS WITH 1 HR WITH RECIPROCAL PATTERN WITHOUT LIMITATIONS. Goal Progress: Goal Met Goal 5:: PATIENT WILL BE INDEP WITH APPROPRIATE STRENGTHENING EX'S TO ASSIST WITH STABILIZATION AND MOVEMENT OF THE SPINE TO HELP NORMALIZE GAIT. Goal Progress: Goal Met Goal 6:: PATIENT WILL BE INDEP WITH APPROPRIATE STRETCHING EX'S TO DECREASE STRESS ON THE SPINE AND HELP NORMALIZE GAIT. Goal Progress: Goal Met Plan Plan: D/C TO INDEP EX. PATIENT IS AGREEABLE. D/C Information d/c sentence: If there are questions or concerns regarding this patient's physical therapy, please feel free to call me at [phone]. Thank you for the referral of this patient. Sincerely, Chen Zaman, PT, Cert MDT Balance/Gait/Functional tests Balance/Special Test Scores Oswestry Low Back Score: 20 Improvement % Improvement: 50
== END 2025-05-27 19:00 | disposition home or self-care (01) ==
LOC: PT 13:30
PROVIDERS: PCP Family Medicine Geriatric Medicine; Referring Provider Family Medicine Geriatric Medicine; Visit Provider Family Medicine Geriatric Medicine
DX: M54.50 Low back pain, unspecified (principal)
CPT/HCPCS: 97162; 97530

== ENCOUNTER → 2025-07-12 | Outpatient (CLI) | payer MEDICARE, OTHER, SELFPAY ==
--- OUTSIDE RECORDS SUMMARY | 2025-07-12 09:05 | XMS RPT_ITS | CCD ---
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 Teodoro Kim on 04-10-2025 Calculated very low density lipoprotein (VLDL) cholesterol measurement 43 mg/dL High 5-40 [facility] Carbon dioxide, total [Moles /volume] in Central venous bloodOrdered By: Teodoro Kim on 04-10-2025 CO2 [Moles/Vol] 22.2 mmol/L 21.0-32.0 [facility] Chloride assayOrdered By: iSngh Kim on 04-10-2025 Chloride [Moles/Vol] 106 mmol/L 98-108 [facility] Comprehensive Metabolic Prof ilon 04-10-2025 Albumin [Mass/Vol] 4.3 g/dL Normal 3.4-4.8 [facility] Comment on above: Performed By: #### L 500.4050, L500.4100, L100.0100, L501.9520, L506.1001 #### [facility] [address] [place], [address] Albumin/Globulin [Mass ratio] 1.4 {ratio} Normal 0.9-2.4 [facility] Comment on above: Performed By: #### L 500.4050, L500.4100, L100.0100, L501.9520, L506.1001 #### [facility] [address] [place], [address] ALK PHOS 59 U/L Normal 40-129 [facility] Comment on above: Performed By: #### L 500.4050, L500.4100, L100.0100, L501.9520, L506.1001 #### [facility] [address] [place], [address] ALT [Catalytic activity/Vol] 54 U/L High <=46 [facility] Comment on above: Performed By: #### L 500.4050, L500.4100, L100.0100, L501.9520, L506.1001 #### [facility] [address] [place], [address] AST [Catalytic activity/Vol] 31 U/L Normal <=37 [facility] Comment on above: Performed By: #### L 500.4050, L500.4100, L100.0100, L501.9520, L506.1001 #### [facility] [address] [place], [address] Bilirubin [Mass/Vol] 0.30 mg/dL Normal 0.00-1.30 [facility] Comment on above: Performed By: #### L 500.4050, L500.4100, L100.0100, L501.9520, L506.1001 #### [facility] [address] [place], [address] BUN/CRE 21.9 RATIO High 10-20 [facility] Comment on above: Performed By: #### L 500.4050, L500.4100, L100.0100, L501.9520, L506.1001 #### [facility] [address] [place], [address] Calcium [Mass/Vol] 9.4 mg/dL Normal 7.6-11.0 [facility] Comment on above: Performed By: #### L 500.4050, L500.4100, L100.0100, L501.9520, L506.1001 #### [facility] [address] [place], [address] Chloride [Moles/Vol] 106 mmol/L Normal 98-108 [facility] Comment on above: Performed By: #### L 500.4050, L500.4100, L100.0100, L501.9520, L506.1001 #### [facility] [address] [place], [address] CO2 [Moles/Vol] 22.2 mmol/L Normal 21.0-32.0 [facility] Comment on above: Performed By: #### L 500.4050, L500.4100, L100.0100, L501.9520, L506.1001 #### [facility] [address] [place], [address] Creatinine [Mass/Vol] 0.90 mg/dL Normal 0.70-1.20 [facility] Comment on above: Performed By: #### L 500.4050, L500.4100, L100.0100, L501.9520, L506.1001 #### [facility] [address] [place], [address] GAP 12 Normal 5-15 [facility] Comment on above: Performed By: #### L 500.4050, L500.4100, L100.0100, L501.9520, L506.1001 #### [facility] [address] [place], [address] GFR/1.73 sq M.predicted among non-blacks MDRD (S/P/Bld) [Vol rate/Area] 94 mL/min/{1.73_m2} Normal >60 [facility] Comment on above: Result Comment: mL/m in/1.73m2 CKD-EPI Creatinine Equation (2020) Performed By: #### L 500.4050, L500.4100, L100.0100, L501.9520, L506.1001 #### [facility] [address] [place], [address] Globulin (S) [Mass/Vol] 3.2 g/dL Normal 2.2-4.2 [facility] Comment on above: Performed By: #### L 500.4050, L500.4100, L100.0100, L501.9520, L506.1001 #### [facility] [address] [place], [address] Glucose [Mass/Vol] 126 mg/dL High 70-99 [facility] Comment on above: Performed By: #### L 500.4050, L500.4100, L100.0100, L501.9520, L506.1001 #### [facility] [address] [place], [address] Potassium [Moles/Vol] 4.4 mmol/L Normal 3.3-5.1 [facility] Comment on above: Performed By: #### L 500.4050, L500.4100, L100.0100, L501.9520, L506.1001 #### [facility] [address] [place], [address] Sodium [Moles/Vol] 140 mmol/L Normal 133-145 [facility] Comment on above: Performed By: #### L 500.4050, L500.4100, L100.0100, L501.9520, L506.1001 #### [facility] [address] [place], [address] T PROT 7.5 g/dL Normal 5.9-8.4 [facility] Comment on above: Performed By: #### L 500.4050, L500.4100, L100.0100, L501.9520, L506.1001 #### [facility] [address] [place], [address] Urea nitrogen [Mass/Vol] 20 mg/dL High 4-19 [facility] Comment on above: Performed By: #### L 500.4050, L500.4100, L100.0100, L501.9520, L506.1001 #### [facility] [address] [place], [address] Eosinophil percentageOrdered By: Teodoro Kim on 04-10-2025 Eosinophils/100 WBC (Bld) 1.8 % 0-5 [facility] Erythrocyte distribution wid th ratioOrdered By: Teodoro Kim on 04-10-2025 Erythrocyte distribution width (RBC) [Ratio] 17.2 % High 11.6-14.6 [facility] Erythrocyte distribution wid th standard deviationOrdered By: Teodoro Julio on 04-10-2025 Erythrocyte distribution width (RBC) [Ratio] 38.5 fl 35.1-43.9 [facility] Glomerular filtration rate ( GFR) estimation/1.73 sq m using serum, plasma, or whole bOrdered By: Teodoro Kim on 04-10-2025 GFR/1.73 sq M.predicted among non-blacks MDRD (S/P/Bld) [Vol rate/Area] 94 mL/min/{1.73_m2} >60 [facility] Comment on above: mL/min/1.73m2 CKD-EP I Creatinine Equation (2020) Hematocrit Auto (Bld) [Volum e fraction]Ordered By: Teodoro Kim on 04-10-2025 Hematocrit (Bld) [Volume fraction] 42.5 % 40-54 [facility] Hemoglobin measurementOrdere d By: Teodoro Kim on 04-10-2025 Hemoglobin (Bld) [Mass/Vol] 13.1 g/dL 13.0-16.5 [facility] Immature granulocytes/100 WB C Auto (Bld)Ordered By: Teodoro Kim on 04-10-2025 Immature granulocytes/100 WBC (Bld) 0.400 % 0.0-0.9 [facility] Comment on above: IG% - Immature Granu locytes (promyelocytes, myelocytes and metamyelocytes) > 1% indicates that a LEFT SHIFT is Present. L/S Spine Min 4 Viewson 03-23 L/S Spine Min 4 Views [facility] Imaging Services [address] [place] [address] L/S Spine Min 4 Views MR#: [id number] Acct: [id number] Name: FERNANDA MCDONALD Rep #: [id number] : 1960 65 From: Franc Black MD PCP: Dr. Teodoro Kim MD Status: REG CLI Study: L/S Spine Min 4 Views Date of Exam: 04/10/25 Exam# [id number] Ordering Dr: Teodoro Kim MD PROCEDURE: L/S SPINE MIN 4 VIEWS 04/10/2025 REASON FOR EXAM: LOW BACK PAIN TECHNIQUE: L/S SPINE MIN 4 VIEWS COMPARISON: None FINDINGS: There is levocurvature of the lower lumbar region with less than 10 degrees of variance, which can indicate spasm. There is loss of disc height at each level. There is moderate facet sclerosis. Vertebral body height is maintained. There is no visible fracture. Mineralization is normal. There is visible atherosclerosis. RAD/L/S Spine Min 4 Views IMPRESSION: There is levocurvature of the lower lumbar region with less than 10 degrees of variance, which can indicate spasm. There is loss of disc height at each level. Reading Location: [facility] CC: Dr. Teodoro Kim MD Enrollment Processor: Signed Normal [facility] LDL calc ser/plasOrdered By: Teodoro Kim on 04-10-2025 Cholesterol in LDL [Mass/Vol] 103 mg/dL [facility] Comment on above: Migtnngtjv=751-129 m g/dL & Higher Nbwl=647 mg/dL or greaterFriedwald Equation for LDL-C Laboratory - Chemistry and C hemistry - challengeOrdered By: Teodoro Kim on 04-10-2025 AST [Catalytic activity/Vol] 31 U/L <38 [facility] Lipid Profileon 04-10-2025 CHOL:HDL 3.75 Normal [facility] Comment on above: Performed By: #### L 500.4050, L500.4100, L100.0100, L501.9520, L506.1001 #### [facility] [address] [place], [address] Cholesterol [Mass/Vol] 199 mg/dL Normal <=200 [facility] Comment on above: Result Comment: Chol esterol level, Desirable <200 mg/dL Borderline high cholesterol 200-239 mg/dL High cholesterol >=240 mg/dL Recommendations of the NCEP Adult Treatment Panel for the following risk-cutoff thresholds for the [place] population. Performed By: #### L 500.4050, L500.4100, L100.0100, L501.9520, L506.1001 #### [facility] [address] [place], [address] Cholesterol in HDL [Mass/Vol] 53 mg/dL Normal [facility] Comment on above: Result Comment: [place] onal Cholesterol Education Program (NCEP) guidelines: <40 mg/dL: Low HDL-cholesterol (major risk factor for CHD) >= 60 mg/dL: High HDL-cholesterol (negative risk factor for CHD) HDL-cholesterol is affected by a number of factors, e.g. smoking, exercise, hormones, sex and age. Performed By: #### L 500.4050, L500.4100, L100.0100, L501.9520, L506.1001 #### [facility] [address] [place], [address] Cholesterol in LDL [Mass/Vol] 103 mg/dL Normal [facility] Comment on above: Result Comment: Bord bxyzwl=631-862 mg/dL Higher Qdao=760 mg/dL or greater Friedwald Equation for LDL-C Performed By: #### L 500.4050, L500.4100, L100.0100, L501.9520, L506.1001 #### [facility] [address] [place], [address] Cholesterol in VLDL [Mass/Vol] 43 mg/dL High 5-40 [facility] Comment on above: Performed By: #### L 500.4050, L500.4100, L100.0100, L501.9520, L506.1001 #### [facility] [address] [place], [address] Triglyceride [Mass/Vol] 213 mg/dL High [facility] Comment on above: Result Comment: The drugs N-Acetylcysteine and Metamizole may falsely depress this assay. Normal range: <150 mg/dL Borderline High: 150-199 mg/dL High: 200-499 mg/dL Very High: >500 mg/dL Performed By: #### L 500.4050, L500.4100, L100.0100, L501.9520, L506.1001 #### [facility] [address] [place], [address] MCV (mean corpuscular volume ) determinationOrdered By: Teodoro Kim on 04-10-2025 MCV (RBC) [Entitic vol] 69.0 fL Low 80-94 [facility] Mean corpuscular hemoglobin (MCH) determinationOrdered By: Teodoro Kim on 04-10-2025 MCH (RBC) [Entitic mass] 21.3 pg Low 27.0-32.0 [facility] Mean corpuscular hemoglobin concentration (MCHC) determinationOrdered By: Teodoro Kim on 04-10-2025 MCHC (RBC) [Mass/Vol] 30.8 g/dL Low 32-36 [facility] Mean platelet volume determi nationOrdered By: Teodoro Kim on 04-10-2025 Platelet mean volume (Bld) [Entitic vol] 10.2 fL 6.2-12.0 [facility] Monocyte percentageOrdered B y: Teodoro Moeok on 04-10-2025 Monocytes/100 WBC (Bld) 8.4 % 0-10 [facility] Neutrophil percentageOrdered By: Teodoro Kim on 04-10-2025 Neutrophils/100 WBC (Bld) 66.1 % 47-70 [facility] Nucleated red blood cell per centageOrdered By: Teodoro Kim on 04-10-2025 Nucleated RBC/100 WBC (Bld) [Ratio] 0 % 0-5 [facility] PSA,Total- Diagnosticon 03-23 PSA, DIAGNOSTIC 1.84 ng/mL Normal 0.00-4.00 [facility] Comment on above: Result Comment: This test was performed using the [employer] tPSA method. Measured values of a patient??sample can vary depending on the testing procedure used. PSA values determined on patient samples by different testing procedures cannot be used interchangeably. If there is a change in PSA assays while monitoring therapy, sequential testing should be performed to confirm baseline values. Performed By: #### L 501.9940 #### [facility] [address] [place], [place], [address] Platelet countOrdered By: Singh Kim on 04-10-2025 Platelets (Bld) [#/Vol] 253 10*3/uL 150-450 [facility] Potassium measurement (mass/ volume)Ordered By: Teodoro Kim on 04-10-2025 Potassium (Unsp spec) [Mass/Vol] 4.4 mmol/L 3.3-5.1 [facility] RBC Auto (Bld) [#/Vol]Ordere d By: Teodoro Kim on 04-10-2025 RBC (Bld) [#/Vol] 6.16 10*6/uL 4.6-6.2 [facility] Screening total cholesterol/ high density lipoprotein (HDL) cholesterol ratioOrdered By: Teodoro Kim on 04-10-2025 Cholesterol.total/Kassy sterol in HDL [Mass ratio] 3.75 {ratio} [facility] Serum creatinine measurement (mass/volume)Ordered By: Teodoro Kim on 04-10-2025 Creatinine [Mass/Vol] 0.90 mg/dL 0.70-1.20 [facility] Serum globulin measurementOr dered By: Teodoro Kim on 04-10-2025 Globulin (S) [Mass/Vol] 3.2 g/dL 2.2-4.2 [facility] Serum glucose measurement (m ass/volume)Ordered By: Teodoro Kim on 04-10-2025 Glucose [Mass/Vol] 126 mg/dL High 70-99 [facility] Serum or plasma alanine gutierrez otransferase (ALT) measurementOrdered By: Teodoro Kim 04-10-2025 ALT [Catalytic activity/Vol] 54 U/L High <47 [facility] Serum or plasma albumin doron urement (mass/volume)Ordered By: Teodoro Kim 04-10-2025 Albumin [Mass/Vol] 4.3 g/dL 3.4-4.8 [facility] Serum or plasma albumin/glob ulin mass ratioOrdered By: Teodoro Kim 04-10-2025 Albumin/Globulin [Mass ratio] 1.4 {ratio} 0.9-2.4 [facility] Serum or plasma alkaline fawn sphatase measurementOrdered By: Teodoro Kim 04-10-2025 ALP [Catalytic activity/Vol] 59 U/L 40-129 [facility] Serum or plasma calcium doron urement (mass/volume)Ordered By: Teodoro Kim 04-10-2025 Calcium [Mass/Vol] 9.4 mg/dL 7.6-11.0 [facility] Serum or plasma cholesterol in HDL measurement (mass/volume)Ordered By: Teodoro Kim 04-10-2025 Cholesterol in HDL [Mass/Vol] 53 mg/dL >40 [facility] Comment on above: National Cholesterol Education Program (NCEP) guidelines:<40 mg/dL: Low HDL-cholesterol (major risk factor for CHD)>= 60 mg/dL: High HDL-cholesterol (negative risk factor for CHD)HDL-cholesterol is affected by a number of factors, e.g. smoking, exercise, hormones, sex and age. Serum or plasma cholesterol measurement (mass/volume)Ordered By: Teodoro Kim on 04-10-2025 Cholesterol [Mass/Vol] 199 mg/dL <201 [facility] Comment on above: Cholesterol level, D esirable <200 mg/dLBorderline high cholesterol 200-239 mg/dLHigh cholesterol >=240 mg/dLRecommendations of the NCEP Adult Treatment Panel for the following risk-cutoff thresholds for the [place] population. Serum or plasma urea nitroge n measurement (mass/volume)Ordered By: Teodoro Kim on 04-10-2025 Urea nitrogen [Mass/Vol] 20 mg/dL High 4-19 [facility] Sodium levelOrdered By: Teodoro Kim on 04-10-2025 Sodium [Moles/Vol] 140 mmol/L 133-145 [facility] TSH DL <= 0.005 mIU/L QnOrde red By: Teodoro Kim on 04-10-2025 TSH Qn 1.870 uIU/mL 0.300-4.200 [facility] Thyroid Stim Hormone (TSH)on 04-10-2025 TSH 1.870 uIU/mL Normal 0.300-4.200 [facility] Comment on above: Performed By: #### L 500.4050, L500.4100, L100.0100, L501.9520, L506.1001 #### [facility] Laboratory [facility] [place], [address] Total proteinOrdered By: Teodoro Kim on 04-10-2025 Protein [Mass/Vol] 7.5 g/dL 5.9-8.4 [facility] Triglycerides measurementOrd ered By: Teodoro Kim on 04-10-2025 Triglyceride [Mass/Vol] 213 mg/dL High <199 [facility] Comment on above: The drugs N-Acetylcy steine and Metamizole may falsely depress this assay. Normal range: <150 mg/dLBorderline High: 150-199 mg/dLHigh: 200-499 mg/dLVery High: >500 mg/dL Vitamin D,25 Hydroxyon 04-10 Vitamin D 25-OH 19.5 ng/mL Low 30-100 [facility] Comment on above: Result Comment: Antoinette min D Status Deficiency: <20 ng/mL (50nmol/L) Insufficiency: 20-30 ng/mL (50-75 nmol/L) Sufficiency: 30-100 ng/mL (75-250 nmol/L) Toxicity: >100 ng/mL (>250 nmol/L) Performed By: #### L 500.4050, L500.4100, L100.0100, L501.9520, L506.1001 #### [facility] [address] [place], [address] White blood cell (WBC) count Ordered By: Teodoro Kim on 04-10-2025 WBC (Bld) [#/Vol] 8.1 10*3/uL 4.4-11.0 [facility] Cardiology Visit Reporton Cardiology Visit Report [facility] [address] [place], [place] [address] OFFICE VISIT Date of Service: 03/04/25 MR#: [id number] Acct: [id number] Name: FERNANDA MCDONALD Rep #: [id number] : 1960 Provider: CRESCENCIO Sanders Age/Sex: 65/M Location: [facility] Status: Signed HPI HPI History of Present [...] medication adjustment; however, he then experienced hypertension. Upon presentation today, patient reports ongoing SOB with activity, unchanged from last visit. He notices occasional dizziness 1-2x per week. He had a headache last week and noted elevated blood pr essure with it. His home BP readings were recently reported and his amlodipine was increased. However, upon presentation today, he reports BPs over the past 2 weeks occasionally 200s/110s. Further ROS below. 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 Required: No Is patient in pain?: No Allergies vancomycin Allergy (Verified 03/04/25 10:50) Unknown Medications ???Medication ???Instructions ???Recorded ???Confirmed ???Type citalopram 20 mg tablet 20 mg PO QDAY 10/11/24 03/04/25 Hi story dutasteride 0.5 mg capsule 0.5 mg PO QDAY 10/11/24 03/04/25 H istory lisinopril 40 mg tablet 40 mg PO DAILY #90 tabs 01/29/25 0 03/04/25 Rx amlodipine 10 mg tablet 10 mg PO QDAY #30 tabs 03/04/25 Rx Ejection fraction %: 55 Have you fallen in the past year?: Yes PFSH Medical History History of deviated nasal [...] Former smoker ROS Const Const: Positive for weakness and headache(s); Negative for fatigue or frequent falls Eyes Eyes: Negative for blurry vision ENT ENT: Positive for headache(s); Negative for dizziness or Nosebleed/epistaxis Cardio Chest Pain: No Palpitations: No Edema: None Muscle aches with walking: None Resp Respiratory: Positive for SOB with activity; Negative for SOB at rest or SOB orthopnea SOB lying down GI GI: Negative nausea, vomiting, heartburn, bright, red blood in stools or black,tarry stools : Negative for hematuria Neuro Neuro: Positive for headache(s) and weakness; Negative for dizziness, lightheadedness, near syncope, syncope, frequent falls or blurry vision Endo Endo: Negative for [...] Negative bruit Neck Mass: Negative Neck mass Chest Chest inspection: normal re (more content not included)... Normal [facility] Anion gap in Serum or Plasma Ordered By: Arun Cross on 02-08-2025 Anion gap [Moles/Vol] 12 mmol/L 01-03 [facility] BUN/creatinine ratioOrdered By: Arun Cross on 02-08-2025 Urea nitrogen/Creatinine [Mass ratio] 11.7 mg/mg 06-10 [facility] Basic Metabolic Profile (BMP )on 02-08-2025 BUN/CRE 11.7 RATIO Normal 06-10 [facility] Comment on above: Performed By: #### L 500.2500 ####[facility] [address] [place], [address] Calcium [Mass/Vol] 8.9 mg/dL Normal 7.6-11.0 [facility] Comment on above: Performed By: #### L 500.2500 ####[facility] [address] [place], [address] Chloride [Moles/Vol] 107 mmol/L Normal 98-108 [address] [facility] Comment on above: Performed By: #### L 500.2500 ####[facility] [address] [place], [address] CO2 [Moles/Vol] 21.7 mmol/L Normal 21.0-32.0 [facility] Comment on above: Performed By: #### L 500.2500 ####[facility] [address] [place], [address] Creatinine [Mass/Vol] 0.95 mg/dL Normal 0.70-1.20 [facility] Comment on above: Performed By: #### L 500.2500 ####[facility] [address] [place], [address] GAP 12 Normal 5-15 [facility] Comment on above: Performed By: #### L 500.2500 ####[facility] [address] [place], [address] GFR/1.73 sq M.predicted among non-blacks MDRD (S/P/Bld) [Vol rate/Area] 88 mL/min/{1.73_m2} Normal >60 [facility] Comment on above: Result Comment: mL/m in/1.73m2 CKD-EPI Creatinine Equation (2020) Performed By: #### L 500.2500 ####[facility] [address] [place], [address] Glucose [Mass/Vol] 100 mg/dL High 70-99 [facility] Comment on above: Performed By: #### L 500.2500 ####[facility] [address] [place], [address] Potassium [Moles/Vol] 4.4 mmol/L Normal 3.3-5.1 [facility] Comment on above: Performed By: #### L 500.2500 ####[facility] [address] [place], [address] Sodium [Moles/Vol] 141 mmol/L Normal 133-145 [facility] Comment on above: Performed By: #### L 500.2500 ####[facility] [address] [place], [address] Urea nitrogen [Mass/Vol] 11 mg/dL Normal 4-19 [facility] Comment on above: Performed By: #### L 500.2500 ####[facility] [address] [place], [place], [id number](911) Carbon dioxide, total [Moles /volume] in Central venous bloodOrdered By: Arun Cross on 02-08-2025 CO2 [Moles/Vol] 21.7 mmol/L 21.0-32.0 [facility] Chloride assayOrdered By: Georgia Cross on 02-08-2025 Chloride [Moles/Vol] 107 mmol/L 98-108 [facility] Glomerular filtration rate ( GFR) estimation/1.73 sq m using serum, plasma, or whole bOrdered By: Arun Cross on 02-08-2025 GFR/1.73 sq M.predicted among non-blacks MDRD (S/P/Bld) [Vol rate/Area] 88 mL/min/{1.73_m2} >60 [facility] Comment on above: mL/min/1.73m2 CKD-EP I Creatinine Equation (2020) Potassium measurement (mass/ volume)Ordered By: Arun Cross on 02-08-2025 Potassium (Unsp spec) [Mass/Vol] 4.4 mmol/L 3.3-5.1 [facility] Serum creatinine measurement (mass/volume)Ordered By: Arun Cross on 02-08-2025 Creatinine [Mass/Vol] 0.95 mg/dL 0.70-1.20 [facility] Serum glucose measurement (m ass/volume)Ordered By: Arun Cross on 02-08-2025 Glucose [Mass/Vol] 100 mg/dL High 70-99 [facility] Serum or plasma calcium doron urement (mass/volume)Ordered By: Arun Cross on 02-08-2025 Calcium [Mass/Vol] 8.9 mg/dL 7.6-11.0 [facility] Serum or plasma urea nitroge n measurement (mass/volume)Ordered By: Arun Cross on 02-08-2025 Urea nitrogen [Mass/Vol] 11 mg/dL 4-19 [facility] Sodium levelOrdered By: Pedrito Cross on 02-08-2025 Sodium [Moles/Vol] 141 mmol/L 133-145 [facility] Cardiology Visit Reporton Cardiology Visit Report [facility] [place] [address] [facility] 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 Normal [facility] Cardiology Visit Reporton Cardiology Visit Report [facility] 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 Normal [facility] 12 Lead EKG performed by [facility] on 11-21-2024 12 Lead EKG performed by [facility] [address] [place] [address] 12 Lead EKG performed by [facility] 11/21/24 1018 MR#: [id number] Acct: [id number] Name: FERNANDA MCDONALD Rep #: [id number] : 1960 64 From: Micheal Rueda MD Attending Dr: Dr. Micheal Rueda MD Status: DEP A MB Ordering Dr: Micheal Rueda MD Date: 11/21/24 Location: [facility] Sex: M C Admitted: [facility]/12 Lead EKG performed by [facility] ECG Report Interpretation ---Marked sinus Bradycardia BORDERLINE RHYTHMElectronically signed on 11/28/2024 at 11:28 by Micheal Rueda Peer60 Software Version [id number] 11/28/24 1134 Date Micheal Rueda MD CC: Dr. Teodoro Kim MD Date Dictated: 11/21/24 1018 Date Transcribed: 11/21/241017 Enrollment Processor: CO Signed Normal [facility] Cardiology Visit Reporton Cardiology Visit Report [facility] [place] [address] OFFICE VISIT Date of Service: 11/21/24 MR#: [id number] Acct: [id number] Name: FERNANDA MCDONALD Rep #: [id number] : 1960 Provider: Dr. 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 Normal [facility] Carotid Duplex Ultrasoundon 11-19-2024 Carotid Duplex Ultrasound [facility] [address] [place] [address] Carotid Duplex Ultrasound 11/19/24 1035 MR#: [id number] Acct: [id number] Name: FERNANDA MCDONALD Rep #: [id number] : 1960 64 From: Steven Biggs MD Attending Dr: Dr. Teodoro Kim MD Status: REG CLI Ordering Dr: Teodoro Kim MD Date: 11/19/24 Location: [facility] Sex: M C Admitted: Reason For Study [...] the left vertebral artery. Procedure Carotid Duplex 73350. This is a Carotid Duplex examination using B-mode, color flow and specral Doppler. Exam performed in department. VL/Carotid Duplex Ultrasound Interpretation Summary Mild (<50%) stenosis right extracranial internal carotid. Mild (<50%) stenosis left extracranial internal carotid. Flow within the vertebral arteries is antegrade bilaterally. Ordering Physician: Teodoro Kim Chi Referring Physician: Teodoro Kim Chi Performed By: Marta Power RVT 11/19/241935 Date Steven Bigsg MD CC: Dr. Teodoro Kim MD Date Dictated: 11/19/241034 Date Transcribed: 11/19/241935 Enrollment Processor: Signed Normal [facility] Duplex ultrasound of carotid artery reportOrdered By: Steven Biggs on 11-19-[address] [facility] [address] [place] [address] Carotid Duplex Ultrasound 11/19/241034 MR#: [id number] Acct: [id number] Name: FERNANDA MCDONALD Rep #:[id number] : 1960 64 From: Steven Biggs MD [...] the left vertebral artery. Procedure Carotid Duplex 57642. This is a Carotid Duplex examination using [...] Dr. Teodoro Kim MD ~ Date Dictated: 11/19/241034 Date Transcribed: 11/19/241935 Enrollment Processor: Signed [facility] Other Phone: [phone] DOrdered By: Valentina Kim on 10-04-2024 Vitamin D 25-Hydroxy 6.7 ng/mL [facility] Comment on above: Vitamin D 25(OH) Sta tus Range Deficiency <20 ng/mL (50nmol/L) Insufficiency 20 - 30 ng/mL (50 - 75 nmol/L) Sufficiency 30 - 100 ng/mL (75 - 250 nmol/L) Toxicity >100 ng/mL (>250 nmol/L) Absolute lymphocyte countOrd ered By: Teodoro Kim on 10-04-2024 Lymphocytes Auto (Unsp spec) [#/Vol] 1.72 10*3/uL 0.83-4.51 [facility] Absolute neutrophil countOrd ered By: [facility] on 10-04-2024 Neutrophils (Bld) [#/Vol] 6.7 10*3/uL 2.0-7.7 [facility] Albumin to globulin ratioOrd ered By: [facility] on 10-04-2024 Albumin/Globulin [Mass ratio] 0.9 {ratio} 0.9-2.4 [facility] Automated lymphocyte count a s percentage of total leukocytesOrdered By: [facility] on 10-04-2024 Lymphocytes/100 WBC Auto (Unsp spec) 18.3 % Low 19-41 [facility] Basophil percentageOrdered B y: [facility] on 10-04-2024 Basophils/100 WBC (Bld) 0.6 % 0-1 [facility] Bilirubin, totalOrdered By: [facility] on 10-04-2024 Bilirubin [Mass/Vol] 0.40 mg/dL 0.20-1.00 [facility] Comment on above: For patients on eltr ombopag therapy, use of Dimension [place] TBIL is not recommended. Blood urea nitrogen (BUN)/cr eatinine ratioOrdered By: [facility] on 10-04-2024 Urea nitrogen/Creatinine [Mass ratio] 17.0 mg/mg 10-20 [facility] CBC W/Diff, Automatedon 09-22 Absolute Lymph 1.72 X10 3/uL Normal 0.83-4.51 [facility] Comment on above: Performed By: #### L 100.0100, L501.9520, L500.4050, L506.1000 #### [facility] [address] [place], [place], [id number] Absolute Neut 6.7 X10 3/uL Normal 2.0-7.7 [facility] Comment on above: Performed By: #### L 100.0100, L501.9520, L500.4050, L506.1000 #### [facility] [address] [place], [address] Basophils/100 WBC (Bld) 0.6 % Normal 0-1 [facility] Comment on above: Performed By: #### L 100.0100, L501.9520, L500.4050, L506.1000 #### [facility] [address] [place], [address] Eosinophils/100 WBC (Bld) 1.4 % Normal 0-5 [facility] Comment on above: Performed By: #### L 100.0100, L501.9520, L500.4050, L506.1000 #### [facility] [address] [place], [address] Erythrocyte distribution width (RBC) [Ratio] 18.5 % High 11.6-14.6 [facility] Comment on above: Performed By: #### L 100.0100, L501.9520, L500.4050, L506.1000 #### [facility] [address] [place], [address] Hematocrit (Bld) [Volume fraction] 42.0 % Normal 40-54 [facility] Comment on above: Performed By: #### L 100.0100, L501.9520, L500.4050, L506.1000 #### [facility] [address] [place], [address] Hemoglobin (Bld) [Mass/Vol] 12.8 g/dL Low 13.0-16.5 [facility] Comment on above: Performed By: #### L 100.0100, L501.9520, L500.4050, L506.1000 #### [facility] [address] [place], [address] IG% 0.500 Normal 0.0-0.9 [facility] Comment on above: Result Comment: IG% - Immature Granulocytes (promyelocytes, myelocytes and metamyelocytes) > 1% indicates that a LEFT SHIFT is Present. Performed By: #### L 100.0100, L501.9520, L500.4050, L506.1000 #### [facility] [address] [place], [address] Lymphocytes/100 WBC (Bld) 18.3 % Low 19-41 [facility] Comment on above: Performed By: #### L 100.0100, L501.9520, L500.4050, L506.1000 #### [facility] [address] [place], [address] MCH (RBC) [Entitic mass] 21.1 pg Low 27.0-32.0 [facility] Comment on above: Performed By: #### L 100.0100, L501.9520, L500.4050, L506.1000 #### [facility] [address] [place], [address] MCHC (RBC) [Mass/Vol] 30.5 g/dL Low 32-36 [facility] Comment on above: Performed By: #### L 100.0100, L501.9520, L500.4050, L506.1000 #### [facility] [address] [place], [address] MCV (RBC) [Entitic vol] 69.2 fL Low 80-94 [facility] Comment on above: Performed By: #### L 100.0100, L501.9520, L500.4050, L506.1000 #### [facility] [address] [place], [address] Monocytes/100 WBC (Bld) 7.5 % Normal 0-10 [facility] Comment on above: Performed By: #### L 100.0100, L501.9520, L500.4050, L506.1000 #### [facility] [address] [place], [address] Neutrophils/100 WBC (Bld) 71.7 % High 47-70 [facility] Comment on above: Performed By: #### L 100.0100, L501.9520, L500.4050, L506.1000 #### [facility] [address] [place], [address] Nucleated RBC (Bld) [#/Vol] 0.2 10*3/uL Normal 0-5 [facility] Comment on above: Performed By: #### L 100.0100, L501.9520, L500.4050, L506.1000 #### [facility] [address] [place], [address] Platelet mean volume (Bld) [Entitic vol] 10.2 fL Normal 6.2-12.0 [facility] Comment on above: Performed By: #### L 100.0100, L501.9520, L500.4050, L506.1000 #### [facility] [address] [place], [address] Platelets (Bld) [#/Vol] 228 10*3/uL Normal 150-450 [facility] Comment on above: Performed By: #### L 100.0100, L501.9520, L500.4050, L506.1000 #### [facility] [address] [place], [address] RBC (Bld) [#/Vol] 6.07 10*6/uL Normal 4.6-6.2 [facility] Comment on above: Performed By: #### L 100.0100, L501.9520, L500.4050, L506.1000 #### [facility] [address] [place], [address] RDW SD 40.5 fl Normal 35.1-43.9 [facility] Comment on above: Performed By: #### L 100.0100, L501.9520, L500.4050, L506.1000 #### [facility] [address] [place], [address] WBC (Bld) [#/Vol] 9.4 10*3/uL Normal 4.4-11.0 [facility] Comment on above: Performed By: #### L 100.0100, L501.9520, L500.4050, L506.1000 #### [facility] [address] [place], [address] Carbon dioxide measurementOr dered By: Teodoro Kim on 10-04-2024 CO2 [Moles/Vol] 26.0 mmol/L 21.0-32.0 [facility] Chloride measurementOrdered By: Teodoro Kim on 10-04-2024 Chloride [Moles/Vol] 109 mmol/L High 98-107 [facility] Comprehensive Metabolic Prof ilon 10-04-2024 Albumin [Mass/Vol] 3.6 g/dL Normal 3.2-5.0 [facility] Comment on above: Performed By: #### L 100.0100, L501.9520, L500.4050, L506.1000 ####[facility] [address] [place], [address] Albumin/Globulin [Mass ratio] 0.9 {ratio} Normal 0.9-2.4 [facility] Comment on above: Performed By: #### L 100.0100, L501.9520, L500.4050, L506.1000 ####[facility] [address] [place], [address] ALK P 69 U/L Normal 45-117 [facility] Comment on above: Performed By: #### L 100.0100, L501.9520, L500.4050, L506.1000 ####[facility] [address] [place], [address] ALT [Catalytic activity/Vol] 34 U/L Normal 16-61 [facility] Comment on above: Performed By: #### L 100.0100, L501.9520, L500.4050, L506.1000 ####[facility] [address] [place], [address] AST [Catalytic activity/Vol] 24 U/L Normal 15-37 [facility] Comment on above: Performed By: #### L 100.0100, L501.9520, L500.4050, L506.1000 ####[facility] [address] [place], [address] Bilirubin [Mass/Vol] 0.40 mg/dL Normal 0.20-1.00 [facility] Comment on above: Result Comment: For patients on eltrombopag therapy, use of Dimension [place] TBIL is not recommended. Performed By: #### L 100.0100, L501.9520, L500.4050, L506.1000 ####[facility] [address] [place], [address] BUN/CRE 17.0 RATIO Normal 10-20 [facility] Comment on above: Performed By: #### L 100.0100, L501.9520, L500.4050, L506.1000 ####[facility] [address] [place], [address] CA,Total 8.9 mg/dL Normal 8.5-10.1 [facility] Comment on above: Performed By: #### L 100.0100, L501.9520, L500.4050, L506.1000 ####[facility] [address] [place], [address] Chloride [Moles/Vol] 109 mmol/L High 98-107 [facility] Comment on above: Performed By: #### L 100.0100, L501.9520, L500.4050, L506.1000 ####[facility] [address] [place], [address] CO2 [Moles/Vol] 26.0 mmol/L Normal 21.0-32.0 [facility] Comment on above: Performed By: #### L 100.0100, L501.9520, L500.4050, L506.1000 ####[facility] [address] [place], [address] Creatinine [Mass/Vol] 1.06 mg/dL Normal 0.70-1.30 [facility] Comment on above: Result Comment: The validity of the calculated GFR GFRAA in patients over 70 years has not been determined. Clinical correlation is essential. Performed By: #### L 100.0100, L501.9520, L500.4050, L506.1000 ####[facility] [address] [place], [address] EST GFR - AA 90 mL/min Normal >60 [facility] Comment on above: Result Comment: Afri can [place] GFR Calc Performed By: #### L 100.0100, L501.9520, L500.4050, L506.1000 ####[facility] [address] [place], [address] GAP 5 Normal 5-15 [facility] Comment on above: Performed By: #### L 100.0100, L501.9520, L500.4050, L506.1000 ####[facility] [address] [place], [address] GFR/1.73 sq M.predicted among non-blacks MDRD (S/P/Bld) [Vol rate/Area] 74 mL/min/{1.73_m2} Normal >60 [facility] Comment on above: Result Comment: Non- GFR Calc Performed By: #### L 100.0100, L501.9520, L500.4050, L506.1000 ####[facility] [address] [place], [address] Globulin (S) [Mass/Vol] 3.9 g/dL Normal 2.2-4.2 [facility] Comment on above: Performed By: #### L 100.0100, L501.9520, L500.4050, L506.1000 ####[facility] [address] [place], [address] Glucose [Mass/Vol] 103 mg/dL Normal 74-106 [facility] Comment on above: Result Comment: Fast ing Glucose result from 100 to 125 mg/dL suggests IMPAIRED HOMEOSTASIS per A.D.A. criteria. Performed By: #### L 100.0100, L501.9520, L500.4050, L506.1000 ####[facility] [address] [place], [address] Potassium [Moles/Vol] 4.1 mmol/L Normal 3.5-5.1 [facility] Comment on above: Performed By: #### L 100.0100, L501.9520, L500.4050, L506.1000 ####[facility] [address] [place], [address] Sodium [Moles/Vol] 140 mmol/L Normal 136-145 [facility] Comment on above: Performed By: #### L 100.0100, L501.9520, L500.4050, L506.1000 ####[facility] [address] [place], [address] T PROT 7.5 g/dL Normal 6.4-8.2 [facility] Comment on above: Performed By: #### L 100.0100, L501.9520, L500.4050, L506.1000 ####[facility] [address] [place], [address] Urea nitrogen [Mass/Vol] 18 mg/dL Normal 7-18 [facility] Comment on above: Performed By: #### L 100.0100, L501.9520, L500.4050, L506.1000 ####[facility] [address] [place], [address] Eosinophil percentageOrdered By: Teodoro Kim on 10-04-2024 Eosinophils/100 WBC (Bld) 1.4 % 0-5 [facility] Erythrocyte distribution wid th (RBC) [Ratio]Ordered By: Teodoro Julio on 10-04-2024 Erythrocyte distribution width (RBC) [Entitic vol] 40.5 fL 35.1-43.9 [facility] Erythrocyte distribution wid th ratioOrdered By: Teodoro Kim on 10-04-2024 Erythrocyte distribution width (RBC) [Ratio] 18.5 % High 11.6-14.6 [facility] Erythrocyte distribution wid th standard deviationOrdered By: Teodoro Kim on 10-04-2024 Erythrocyte distribution width (RBC) [Ratio] 40.5 fl 35.1-43.9 [facility] Estimated glomerular filtrat ion rate (GFR) AmericanOrdered By: Teodoro Kim on 10-04-2024 Estimated GFR (MDRD) Amer 90 mL/min >60 [facility] Comment on above: GFR Calc Glomerular filtration rate ( GFR) estimationOrdered By: Teodoro Kim 10-04-2024 Estimated GFR (MDRD) Non-Af Amer 74 mL/min >60 [facility] Comment on above: Non- GFR Calc GFR/1.73 sq M.predicted among non-blacks MDRD (S/P/Bld) [Vol rate/Area] 74 mL/min/{1.73_m2} >60 [facility] Comment on above: Non- GFR Calc Glucose measurementOrdered B y: Teodoro Kim on 10-04-2024 Glucose [Mass/Vol] 103 mg/dL 74-106 [facility] Comment on above: Fasting Glucose resu lt from 100 to 125 mg/dL suggests IMPAIRED HOMEOSTASIS per A.D.A. criteria. Hematocrit Auto (Bld) [Volum e fraction]Ordered By: Teodoro Kim on 10-04-2024 Hematocrit (Bld) [Volume fraction] 42.0 % 40-54 [facility] Hemoglobin measurementOrdere d By: Teodoro Kim on 10-04-2024 Hemoglobin (Bld) [Mass/Vol] 12.8 g/dL Low 13.0-16.5 [facility] Immature granulocytes/100 WB C Auto (Bld)Ordered By: Teodoro Kim on 10-04-2024 Immature granulocytes/100 WBC (Bld) 0.500 % 0.0-0.9 [facility] Comment on above: IG% - Immature Granu locytes (promyelocytes, myelocytes and metamyelocytes) > 1% indicates that a LEFT SHIFT is Present. Laboratory - Chemistry and C hemistry - challengeOrdered By: Teodoro Kim on 10-04-2024 AST [Catalytic activity/Vol] 24 U/L 15-37 [facility] Lymphocytes Auto (Unsp spec) [#/Vol]Ordered By: Teodoro Kim 10-04-2024 Lymphocytes (Bld) [#/Vol] 1.72 10*3/uL 0.83-4.51 [facility] Lymphocytes/100 WBC Auto (Un sp spec)Ordered By: Teodoro Kim 10-04-2024 Lymphocytes/100 WBC (Bld) 18.3 % Low 19-41 [facility] MCV (mean corpuscular volume ) determinationOrdered By: Teodoro Kim 10-04-2024 MCV (RBC) [Entitic vol] 69.2 fL Low 80-94 [facility] Mean corpuscular hemoglobin (MCH) determinationOrdered By: Teodoro Kim 10-04-2024 MCH (RBC) [Entitic mass] 21.1 pg Low 27.0-32.0 [facility] Mean corpuscular hemoglobin concentration (MCHC) determinationOrdered By: Teodoro Kim 10-04-2024 MCHC (RBC) [Mass/Vol] 30.5 g/dL Low 32-36 [facility] Mean platelet volume determi nationOrdered By: Teodoro Kim 10-04-2024 Platelet mean volume (Bld) [Entitic vol] 10.2 fL 6.2-12.0 [facility] Monocyte percentageOrdered B y: Teodoro Kim on 10-04-2024 Monocytes/100 WBC (Bld) 7.5 % 0-10 [facility] Neutrophil percentageOrdered By: Teodoro Kim on 10-04-2024 Neutrophils/100 WBC (Bld) 71.7 % High 47-70 [facility] Nucleated red blood cell per centageOrdered By: Teodoro Kim on 10-04-2024 Nucleated RBC/100 WBC (Bld) [Ratio] 0.2 % 0-5 [facility] Platelet countOrdered By: Singh Kim on 10-04-2024 Platelets (Bld) [#/Vol] 228 10*3/uL 150-450 [facility] Potassium measurementOrdered By: Teodoro Kim on 10-04-2024 Potassium [Moles/Vol] 4.1 mmol/L 3.5-5.1 [facility] RBC Auto (Bld) [#/Vol]Ordere d By: Teodoro Kim on 10-04-2024 RBC (Bld) [#/Vol] 6.07 10*6/uL 4.6-6.2 [facility] Serum anion gap measurementO rdered By: Teodoro Kim on 10-04-2024 Anion gap [Moles/Vol] 5 mmol/L 5-15 [facility] Serum globulin measurementOr dered By: Teodoro Kim 10-04-2024 Globulin (S) [Mass/Vol] 3.9 g/dL 2.2-4.2 [facility] Serum or plasma alanine gutierrez otransferase (ALT) measurementOrdered By: Teodoro Kim 10-04-2024 ALT [Catalytic activity/Vol] 34 U/L 16-61 [facility] Serum or plasma albumin doron urement (mass/volume)Ordered By: Teodoro Kim 10-04-2024 Albumin [Mass/Vol] 3.6 g/dL 3.2-5.0 [facility] Serum or plasma alkaline fawn sphatase measurementOrdered By: Teodoro Kim 10-04-2024 ALP [Catalytic activity/Vol] 69 U/L 45-117 [facility] Serum or plasma calcium doron urement (mass/volume)Ordered By: Teodoro Kim 10-04-2024 Calcium [Mass/Vol] 8.9 mg/dL 8.5-10.1 [facility] Serum or plasma creatinine m easurement (mass/volume)Ordered By: Teodoro Kim on 10-04-2024 Creatinine [Mass/Vol] 1.06 mg/dL 0.70-1.30 [facility] Comment on above: The validity of the calculated GFR & GFRAA in patients over 70 years has not been determined. Clinical correlation is essential. Serum or plasma thyroid stim ulating hormone (TSH) measurement (units/volume)Ordered By: Teodoro Kim on 10-04-2024 TSH Qn 1.700 uIU/mL 0.358-3.740 [facility] Serum or plasma urea nitroge n measurement (mass/volume)Ordered By: Teodoro Kim on 10-04-2024 Urea nitrogen [Mass/Vol] 18 mg/dL 7-18 [facility] Sodium levelOrdered By: Teodoro Kim on 10-04-2024 Sodium [Moles/Vol] 140 mmol/L 136-145 [facility] TSH QnOrdered By: Teodoro Kim o n 10-04-2024 Thyroid Stimulating Hormone (TSH) 1.700 uIU/mL 0.358-3.740 [facility] Thyroid Stim Hormone (TSH)on 10-04-2024 TSH 1.700 uIU/mL Normal 0.358-3.740 [facility] Comment on above: Performed By: #### L 100.0100, L501.9520, L500.4050, L506.1000 ####[facility] [id number] [place], [address] Total proteinOrdered By: Teodoro Kim on 10-04-2024 Protein [Mass/Vol] 7.5 g/dL 6.4-8.2 [facility] Vitamin D,25 Hydroxyon 10-04 Vitamin D 25-OH 6.7 ng/mL Normal [facility] Comment on above: Result Comment: Antoinette min D 25(OH) Status Range Deficiency <20 ng/mL (50nmol/L) Insufficiency 20 - 30 ng/mL (50 - 75 nmol/L) Sufficiency 30 - 100 ng/mL (75 - 250 nmol/L) Toxicity >100 ng/mL (>250 nmol/L) Performed By: #### L 100.0100, L501.9520, L500.4050, L506.1000 #### [facility] Laboratory [address] [place], [address] White blood cell (WBC) count Ordered By: Teodoro Kim on 10-04-2024 WBC (Bld) [#/Vol] 9.4 10*3/uL 4.4-11.0 [facility] Absolute lymphocyte countOrd ered By: Teodoro Kim on 10-06-2023 Lymphocytes Auto (Unsp spec) [#/Vol] 1.55 10*3/uL 0.83-4.51 [facility] Automated lymphocyte count a s percentage of total leukocytesOrdered By: Teodoro Kim on 10-06-2023 Lymphocytes/100 WBC Auto (Unsp spec) 19.8 % 19-41 [facility] Basophil percentageOrdered B y: Teodoro Kim on 10-06-2023 Basophil percentage 3.38 ng/mL 0.0-4.0 [facility] Comment on above: This test was perfor med using the TPSA assay method for the[employer] chemistry system. Values obtained with differentassay methods cannot be used interchangably.When changing PSA assays in the course of monitoring apatient, additional sequential testing should be carriedout to confirm baseline values. Basophils/100 WBC (Bld) 0.4 % 0-1 [facility] Bilirubin [Mass/Vol] 0.30 mg/dL 0.20-1.00 [facility] Comment on above: For patients on eltr ombopag therapy, use of Dimension [place] TBIL is not recommended. Chloride [Moles/Vol] 110 mmol/L 98-107 [facility] Eosinophils/100 WBC (Bld) 1.8 % 0-5 [facility] Glucose [Mass/Vol] 138 mg/dL 74-106 [facility] Comment on above: Fasting Glucose resu lt greater than or equal to 126 mg/dL suggests DIABETES MELLITUS per A.D.A. criteria. Hemoglobin (Bld) [Mass/Vol] 12.2 g/dL 13.0-16.5 [facility] Monocytes/100 WBC (Bld) 7.6 % 0-10 [facility] Neutrophils (Bld) [#/Vol] 5.5 10*3/uL 2.0-7.7 [facility] Neutrophils/100 WBC (Bld) 70.1 % 47-70 [facility] Potassium [Moles/Vol] 4.1 mmol/L 3.5-5.1 [facility] Comment on above: Slight Hemolysis, Re sult may be falsely increased. Protein [Mass/Vol] 7.3 g/dL 6.4-8.2 [facility] Sodium [Moles/Vol] 140 mmol/L 136-145 [facility] WBC (Bld) [#/Vol] 7.8 10*3/uL 4.4-11.0 [facility] Determination of erythrocyte mean corpuscular volume (MCV)Ordered By: Teodoro Kim on 10-06-2023 MCV (RBC) [Entitic vol] 67.8 fL 80-94 [facility] Erythrocyte distribution wid th ratioOrdered By: Teodoro Kim 10-06-2023 Erythrocyte distribution width (RBC) [Ratio] 15.9 % 11.6-14.6 [facility] Erythrocyte distribution wid th standard deviationOrdered By: [facility]2023 Erythrocyte distribution width (RBC) [Entitic vol] 36.9 fL 35.1-43.9 [facility] Hematocrit Auto (Bld) [Volum e fraction]Ordered By: [facility] 10-06-2023 Hematocrit (Bld) [Volume fraction] 41.1 % 40-54 [facility] Immature granulocytes/100 WB C Auto (Bld)Ordered By: Teodoro Kim on 10-06-2023 Immature granulocytes/100 WBC (Bld) 0.300 % 0.0-0.9 [facility] Comment on above: IG% - Immature Granu locytes (promyelocytes, myelocytes and metamyelocytes) > 1% indicates that a LEFT SHIFT is Present. Laboratory - Chemistry and C hemistry - challengeOrdered By: Teodoro Julio on 10-06-2023 Albumin/Globulin [Mass ratio] 1.0 {ratio} 0.9-2.4 [facility] ALP [Catalytic activity/Vol] 70 U/L 45-117 [facility] ALT [Catalytic activity/Vol] 34 U/L 16-61 [facility] CO2 [Moles/Vol] 24.0 mmol/L 21.0-32.0 [facility] Globulin (S) [Mass/Vol] 3.7 g/dL 2.2-4.2 [facility] Urea nitrogen/Creatinine [Mass ratio] 15.5 mg/mg 10-20 [facility] Laboratory - Hematology and Cell countsOrdered By: Teodoro Kim on 10-06-2023 MCH (RBC) [Entitic mass] 20.1 pg 27.0-32.0 [facility] MCHC (RBC) [Mass/Vol] 29.7 g/dL 32-36 [facility] Nucleated RBC/100 WBC (Bld) [Ratio] 0 % 0-5 [facility] Platelet mean volume (Bld) [Entitic vol] 11.4 fL 6.2-12.0 [facility] Platelets (Bld) [#/Vol] 219 10*3/uL 150-450 [facility] No Panel InformationOrdered By: Teodoro Kim on 10-06-2023 Estimated GFR (MDRD) Amer 100 mL/min >60 [facility] Comment on above: GFR Calc Estimated GFR (MDRD) Non-Af Amer 83 mL/min >60 [facility] Comment on above: Non- GFR Calc RBC Auto (Bld) [#/Vol]Ordere d By: Teodoro Kim on 10-06-2023 RBC (Bld) [#/Vol] 6.06 10*6/uL 4.6-6.2 [facility] Serum or plasma calcium doron urement (mass/volume)Ordered By: Teodoro Kim on 10-06-2023 Calcium [Mass/Vol] 8.9 mg/dL 8.5-10.1 [facility] Serum or plasma creatinine m easurement (mass/volume)Ordered By: Teodoro Kim on 10-06-2023 Creatinine [Mass/Vol] 0.97 mg/dL 0.70-1.30 [facility] Comment on above: The validity of the calculated GFR & GFRAA in patients over 70 years has not been determined. Clinical correlation is essential. Serum or plasma thyroid stim ulating hormone (TSH) measurement (units/volume)Ordered By: Teodoro Moeok on 10-06-2023 TSH Qn 1.40 uIU/mL 0.358-3.74 [facility] Serum or plasma urea nitroge n measurement (mass/volume)Ordered By: Teodoro Julio on 10-06-2023 Urea nitrogen [Mass/Vol] 15 mg/dL 7-18 [facility] Thin prep Papanicolaou smear with manual screeningOrdered By: Teodoro Julio on 10-06-2023 Thin prep Papanicolaou smear with manual screening 3.6 g/dL 3.2-5.0 [facility] Thin prep Papanicolaou smear with manual screening 18 U/L 15-37 [facility] Comment on above: Slight Hemolysis, Re sult may be falsely increased. Thin prep Papanicolaou smear with manual screening 6 - [facility] Absolute lymphocyte countOrd ered By: Teodoro Moeok on 04-05-2023 Lymphocytes Auto (Unsp spec) [#/Vol] 2.04 10*3/uL 0.83-4.51 [facility] Basophil percentageOrdered B y: Teodoro Kim on 04-05-2023 Basophils/100 WBC (Bld) 0.5 % 0-1 [facility] Bilirubin [Mass/Vol] 0.40 mg/dL 0.20-1.00 [facility] Comment on above: For patients on eltr ombopag therapy, use of Dimension [place] TBIL is not recommended. Chloride [Moles/Vol] 108 mmol/L 98-107 [facility] Eosinophils/100 WBC (Bld) 1.4 % 0-5 [facility] Glucose [Mass/Vol] 104 mg/dL 74-106 [facility] Comment on above: Fasting Glucose resu lt from 100 to 125 mg/dL suggests IMPAIRED HOMEOSTASIS per A.D.A. criteria. Neutrophils (Bld) [#/Vol] 5.9 10*3/uL 2.0-7.7 [facility] Neutrophils/100 WBC (Bld) 67.5 % 47-70 [facility] Potassium [Moles/Vol] 3.9 mmol/L 3.5-5.1 [facility] Protein [Mass/Vol] 7.5 g/dL 6.4-8.2 [facility] Sodium [Moles/Vol] 139 mmol/L 136-145 [facility] WBC (Bld) [#/Vol] 8.8 10*3/uL 4.4-11.0 [facility] Blood erythrocytes count (nu mber/volume)Ordered By: Teodoro Kim on 04-05-2023 RBC (Bld) [#/Vol] 5.91 10*6/uL 4.6-6.2 [facility] Blood hemoglobin measurement (mass/volume)Ordered By: Teodoro Kim on 04-05-2023 Hemoglobin (Bld) [Mass/Vol] 12.1 g/dL 13.0-16.5 [facility] Blood lymphocytes/100 leukoc ytesOrdered By: Teodoro Kim on 04-05-2023 Lymphocytes/100 WBC (Bld) 23.3 % 19-41 [facility] Blood monocytes/100 leukocyt esOrdered By: Teodoro Kim on 04-05-2023 Monocytes/100 WBC (Bld) 7.1 % 0-10 [facility] Blood platelet mean volumeOr dered By: Teodoro Kim on 04-05-2023 Platelet mean volume (Bld) [Entitic vol] 10.4 fL 6.2-12.0 [facility] Determination of erythrocyte mean corpuscular volume (MCV)Ordered By: Teodoro Kim on 04-05-2023 MCV (RBC) [Entitic vol] 69.0 fL 80-94 [facility] Hematocrit Auto (Bld) [Volum e fraction]Ordered By: Teodoro Kim on 04-05-2023 Hematocrit (Bld) [Volume fraction] 40.8 % 40-54 [facility] Laboratory - Chemistry and C hemistry - challengeOrdered By: Teodoro Kim on 04-05-2023 ALP [Catalytic activity/Vol] 63 U/L 45-117 [facility] ALT [Catalytic activity/Vol] 26 U/L 16-61 [facility] CO2 [Moles/Vol] 25.0 mmol/L 21.0-32.0 [facility] Globulin (S) [Mass/Vol] 3.9 g/dL 2.2-4.2 [facility] Urea nitrogen/Creatinine [Mass ratio] 17.1 mg/mg 10-20 [facility] Laboratory - Hematology and Cell countsOrdered By: Teodoro Kim on 04-05-2023 Erythrocyte distribution width (RBC) [Entitic vol] 38.8 fL 35.1-43.9 [facility] Erythrocyte distribution width (RBC) [Ratio] 16.7 % 11.6-14.6 [facility] Immature granulocytes/100 WBC (Bld) 0.200 % 0.0-0.9 [facility] Comment on above: IG% - Immature Granu locytes (promyelocytes, myelocytes and metamyelocytes) > 1% indicates that a LEFT SHIFT is Present. MCH (RBC) [Entitic mass] 20.5 pg 27.0-32.0 [facility] Nucleated RBC/100 WBC (Bld) [Ratio] 0 % 0-5 [facility] MCHC Auto (RBC) [Mass/Vol]Or dered By: Teodoro Kim on 04-05-2023 MCHC (RBC) [Mass/Vol] 29.7 g/dL 32-36 [facility] No Panel InformationOrdered By: Teodoro Kim on 04-05-2023 Estimated GFR (MDRD) Amer 113 mL/min >60 [facility] Comment on above: GFR Calc Estimated GFR (MDRD) Non-Af Amer 93 mL/min >60 [facility] Comment on above: Non- GFR Calc Prostate Specific Antigen Screen 4.36 ng/mL 0.00-4.00 [facility] Comment on above: This test was perfor med using the TPSA assay method for the[facility] chemistry system. Values obtained with differentassay methods cannot be used interchangably.When changing PSA assays in the course of monitoring apatient, additional sequential testing should be carriedout to confirm baseline values. Thyroid Stimulating Hormone (TSH) 1.14 uIU/mL 0.358-3.74 [facility] Platelets bldOrdered By: Teodoro Kim on 04-05-2023 Platelets (Bld) [#/Vol] 217 10*3/uL 150-450 [facility] Serum or plasma albumin droon urement (mass/volume)Ordered By: Teodoro Kim on 04-05-2023 Albumin [Mass/Vol] 3.6 g/dL 3.2-5.0 [facility] Serum or plasma albumin/glob ulin mass ratioOrdered By: Teodoro Kim on 04-05-2023 Albumin/Globulin [Mass ratio] 0.9 {ratio} 0.9-2.4 [facility] Serum or plasma calcium doron urement (mass/volume)Ordered By: Teodoro Kim on 04-05-2023 Calcium [Mass/Vol] 8.8 mg/dL 8.5-10.1 [facility] Serum or plasma creatinine m easurement (mass/volume)Ordered By: Teodoro Kim on 04-05-2023 Creatinine [Mass/Vol] 0.88 mg/dL 0.70-1.30 [facility] Comment on above: The validity of the calculated GFR & GFRAA in patients over 70 years has not been determined. Clinical correlation is essential. Serum or plasma urea nitroge n measurement (mass/volume)Ordered By: Teodoro Kim on 04-05-2023 Urea nitrogen [Mass/Vol] 15 mg/dL 7-18 [facility] Thin prep Papanicolaou smear with manual screeningOrdered By: Teodoro Kim on 04-05-2023 Thin prep Papanicolaou smear with manual screening 15 U/L 15-37 [facility] Thin prep Papanicolaou smear with manual screening 6 5-15 [facility] XR HIP RIGHT W/PELVIS 4 VIEW Son [...] Sign Date: 02/08/2023 11:18:22 AM Ordering Provider: [facility]Care Thread JULIO [facility] ([place]) Progress Noteon 01-04-2023 Picker Feeder Authentication Interface Message Text Chief Complaint Patient [...] mouth (Patient not taking: Reported on 01/04/2023) tsqbfusa-yotbouzyb-yphi methasone (MAXITROL) 0.1 % ophthalmic suspension instill [...] Normal Normal Refraction Wearing Rx Sphere Cylinder [place] Add Right +0.75 +0.75 175 +3.00 Left +0.75 +0.75 170 +3.00 Age: 1yrs Type: Bifocal Manifest Refraction Sphere Cylinder [place] Add Right +1.25 +0.75 175 +3.00 Left +1.00 +1.00 170 +3.00 Final Rx Sphere Cylinder [place] Add Right +1.25 +0.75 175 +3.00 Left +1.00 +1.00 170 +3.00 Impression/Plan/Recomme ndations: The patient was oriented to time, place, and person as appropriate for age and comorbidities. 1. Alternating esotropia 2. Blepharitis of both eyes, unspecified eyelid, unspecified type \ Stable doing well Specs FT FU 11 year or PRN Normal [facility] Absolute lymphocyte counton 04-01-2022 Lymphocytes Auto (Unsp spec) [#/Vol] 1.84 10*3/uL 0.83-4.51 [facility] Work Phone: Basophil percentageon 2021 Basophils/100 WBC (Bld) 0.4 % 0-1 [facility] Work Phone: Bilirubin [Mass/Vol] 0.60 mg/dL 0.20-1.00 [facility] Work Phone: Comment on above: For patients on eltr ombopag therapy, use of Dimension [place] TBIL is not recommended. Chloride [Moles/Vol] 109 mmol/L 98-107 [facility] Work Phone: Eosinophils/100 WBC (Bld) 1.5 % 0-5 [facility] Work Phone: Glucose [Mass/Vol] 86 mg/dL 74-106 [facility] Work Phone: Neutrophils (Bld) [#/Vol] 4.9 10*3/uL 2.0-7.7 [facility] Work Phone: Neutrophils/100 WBC (Bld) 65.1 % 47-70 [facility] Work Phone: Potassium [Moles/Vol] 4.2 mmol/L 3.5-5.1 [facility] Work Phone: Protein [Mass/Vol] 7.2 g/dL 6.4-8.2 [facility] Work Phone: Sodium [Moles/Vol] 140 mmol/L 136-145 [facility] Work Phone: WBC (Bld) [#/Vol] 7.5 10*3/uL 4.4-11.0 [facility] Work Phone: Blood erythrocytes count (nu mber/volume)on 04-01-2022 RBC (Bld) [#/Vol] 5.98 10*6/uL 4.6-6.2 [facility] Work Phone: Blood hemoglobin measurement (mass/volume)on 04-01-2022 Hemoglobin (Bld) [Mass/Vol] 12.7 g/dL 13.0-16.5 [facility] Work Phone: [phone] Blood lymphocytes/100 leukoc yteson 04-01-2022 Lymphocytes/100 WBC (Bld) 24.5 % 19-41 [facility] Work Phone: [phone] Blood monocytes/100 leukocyt eson 04-01-2022 Monocytes/100 WBC (Bld) 8.1 % 0-10 [facility] Work Phone: [phone] Blood platelet mean volumeon 04-01-2022 Platelet mean volume (Bld) [Entitic vol] 11.0 fL 6.2-12.0 [facility] Work Phone: Determination of erythrocyte mean corpuscular volume (MCV)on 04-01-2022 MCV (RBC) [Entitic vol] 68.7 fL 80-94 [facility] Work Phone: [phone] Hematocrit Auto (Bld) [Volum e fraction]on 04-01-2022 Hematocrit (Bld) [Volume fraction] 41.1 % 40-54 [facility] Work Phone: Laboratory - Chemistry and C hemistry - challengeon 04-01-2022 ALP [Catalytic activity/Vol] 57 U/L 45-117 [facility] Work Phone: [phone] ALT [Catalytic activity/Vol] 35 U/L 16-61 [facility] Work Phone: [phone] CO2 [Moles/Vol] 22.0 mmol/L 21.0-32.0 [facility] Work Phone: Globulin (S) [Mass/Vol] 3.3 g/dL 2.2-4.2 [facility] Work Phone: [phone] Urea nitrogen/Creatinine [Mass ratio] 13.7 mg/mg 10-20 [facility] Work Phone: [phone] Laboratory - Hematology and Cell countson 04-01-2022 Erythrocyte distribution width (RBC) [Entitic vol] 39.0 fL 35.1-43.9 [facility] Work Phone: [phone] Erythrocyte distribution width (RBC) [Ratio] 17.7 % 11.6-14.6 [facility] Work Phone: [phone] Immature granulocytes/100 WBC (Bld) 0.400 % 0.0-0.9 [facility] Work Phone: [phone] Comment on above: IG% - Immature Granu locytes (promyelocytes, myelocytes and metamyelocytes) > 1% indicates that a LEFT SHIFT is Present. MCH (RBC) [Entitic mass] 21.2 pg 27.0-32.0 [facility] Work Phone: [phone] Nucleated RBC/100 WBC (Bld) [Ratio] 0 % 0-5 [facility] Work Phone: [phone] MCHC Auto (RBC) [Mass/Vol]on 04-01-2022 MCHC (RBC) [Mass/Vol] 30.9 g/dL 32-36 [facility] Work Phone: [phone] No Panel Informationon 04-01 Estimated GFR (MDRD) Amer 103 mL/min >60 [facility] Work Phone: [phone] Comment on above: GFR Calc Estimated GFR (MDRD) Non-Af Amer 85 mL/min >60 [facility] Work Phone: [phone] Comment on above: Non- GFR Calc Thyroid Stimulating Hormone (TSH) 1.15 uIU/mL 0.358-3.74 [facility] Work Phone: Platelets bldon 04-01-2022 Platelets (Bld) [#/Vol] 209 10*3/uL 150-450 [facility] Work Phone: Serum or plasma albumin doron urement (mass/volume)on 04-01-2022 Albumin [Mass/Vol] 3.9 g/dL 3.2-5.0 [facility] Work Phone: Serum or plasma albumin/glob ulin mass ratioon 04-01-2022 Albumin/Globulin [Mass ratio] 1.2 {ratio} 0.9-2.4 [facility] Work Phone: Serum or plasma calcium doron urement (mass/volume)on 04-01-2022 Calcium [Mass/Vol] 8.8 mg/dL 8.5-10.1 [facility] Work Phone: Serum or plasma creatinine m easurement (mass/volume)on 04-01-2022 Creatinine [Mass/Vol] 0.95 mg/dL 0.70-1.30 [facility] Work Phone: Comment on above: The validity of the calculated GFR & GFRAA in patients over 70 years has not been determined. Clinical correlation is essential. Serum or plasma urea nitroge n measurement (mass/volume)on 04-01-2022 Urea nitrogen [Mass/Vol] 13 mg/dL 7-18 [facility] [facility] Work Phone: Thin prep Papanicolaou smear with manual screeningon 04-01-2022 Thin prep Papanicolaou smear with manual screening 25 U/L 15-37 [facility] Work Phone: [phone] Thin prep Papanicolaou smear with manual screening 9 5-15 [facility] Work Phone: Vital Signs Date Time Vital Sign Value Performing Clinician Faci lity 03-04-2025 11:29-0400 Diastolic blood pressure 62 mm[Hg] Dr. Teodoro Kim MD Work Phone: [facility] 03-04-2025 11:29-0400 Systolic blood pressure 142 mm[Hg] Dr. Teodoro Kim MD Work Phone: [facility] 03-04-2025 06:43-0400 Body mass index (BMI) [Ratio] 36.5 kg/m2 Dr. Teodoro Kim MD Work Phone: 4(411)233-135611 [place] [address] 03-04-2025 06:43-0400 Body weight 132.[address] Teodoro Kim MD Work Phone: [facility] 03-04-2025 06:43-0400 Heart rate 54 /min Dr. Teodoro Kim MD Work Phone: 2(818)411-256511 [place] [address] 03-04-2025 06:43-0400 Respiratory rate 18 /min Dr. Teodoro Kim MD Work Phone: 3(822)274-275235 [place] [address] 03-04-2025 06:43-0400 SaO2% (BldA) [Mass fraction] 96 % Dr. Teodoro Kim MD Work Phone: 4(037)755-993411 [place] [address] 01-29-2025 08:45-0400 Body height 190.[address] Teodoro Kim MD Work Phone: 2(324)227-165535 [place] [address] 01-29-2025 08:45-0400 Body mass index (BMI) [Ratio] 36.7 kg/m2 Dr. Teodoro Kim MD Work Phone: 6(412)673-784135 [place] [address] 01-29-2025 08:45-0400 Body weight 133.[address] Teodoro Kim MD Work Phone: 5(709)260-856435 [place] [address] 01-29-2025 08:45-0400 Diastolic blood pressure 88 mm[Hg] Dr. Teodoro Kim MD Work Phone: 7(891)245-894735 [place] [address] 01-29-2025 08:45-0400 Heart rate 66 /min Dr. Teodoro Kim MD Work Phone: 9(619)129-511135 [place] [address] 01-29-2025 08:45-0400 Respiratory rate 18 /min Dr. Teodoro Kim MD Work Phone: 6(904)865-812211 [place] [address] 01-29-2025 08:45-0400 Systolic blood pressure 147 mm[Hg] Dr. Teodoro Kim MD Work Phone: 9(357)383-704835 [place] [address] 01-04-2025 08:45-0400 Body height 190.[address] Teodoro Kim MD Work Phone: 1(959)333-885835 [place] [address] 01-04-2025 08:45-0400 Body mass index (BMI) [Ratio] 36.8 kg/m2 Dr. Teodoro Kim MD Work Phone: 1(684)673-220535 [place] [address] 01-04-2025 08:45-0400 Body weight 133.[address] Teodoro Kim MD Work Phone: 9(594)409-891035 [place] [address] 01-04-2025 08:45-0400 Diastolic blood pressure 90 mm[Hg] Dr. Teodoro Kim MD Work Phone: 7(401)230-751035 [place] [address] 01-04-2025 08:45-0400 Heart rate 63 /min Dr. Teodoro Kim MD Work Phone: 3(344)790-816635 [place] [address] 01-04-2025 08:45-0400 Respiratory rate 18 /min Dr. Teodoro Kim MD Work Phone: 4(971)300-138235 [place] [address] 01-04-2025 08:45-0400 SaO2% (BldA) [Mass fraction] 95 % Dr. Teodoro Kim MD Work Phone: 0(081)868-992035 [place] [address] 01-04-2025 08:45-0400 Systolic blood pressure 173 mm[Hg] Dr. Teodoro Kim MD Work Phone: 2(791)515-418435 [place] [address] 11-21-2024 10:18-0400 Body height 190.[address] Teodoro Kim MD Work Phone: 8(859)918-838035 [place] [address] 11-21-2024 10:18-0400 Body mass index (BMI) [Ratio] 36.2 kg/m2 Dr. Teodoro Kim MD Work Phone: 5(947)451-373535 [place] [address] 11-21-2024 10:18-0400 Body weight 131.[address] Teodoro Kim MD Work Phone: 2(083)202-775735 [place] [address] 11-21-2024 10:18-0400 Diastolic blood pressure 75 mm[Hg] Dr. Teodoro Kim MD Work Phone: 0(223)604-865535 [place] [address] 11-21-2024 10:18-0400 Heart rate 49 /min Dr. Teodoro Kim MD Work Phone: [facility] 11-21-2024 10:18-0400 Respiratory rate 16 /min Dr. Teodoro Kim MD Work Phone: [facility] 11-21-2024 10:18-0400 Systolic blood pressure 129 mm[Hg] Dr. Teodoro Kim MD Work Phone: [facility] Encounters Encounter Date Encounter Type Care Provider Facility Start: 05-27-2025 End: 05-27-[address] Teodoro Kim MD Work Phone: -Physical Therapy Start: 05-27-2025 End: 05-27-[address] Teodoro Kim MD -Physical Therapy Work Phone: Start: 04-10-2025 End: 04-10-[address] Teodoro Kim MD Work Phone: -Laboratory Phy Office 3rd Flr Start: 04-10-2025 End: 04-10-[address] Teodoro Kim MD -Laboratory Phy Office 3rd Flr Start: 04-10-2025 End: 04-10-2025 ambulatory Teodoro Kim Facility:[facility] Start: 03-04-2025 End: 03-04-2025 Patient encounter procedure Arun Casandraiter PA -[facility] Work Phone: Start: 03-04-2025 End: 03-04-[address] Teodoro Kim MD Work Phone: -[facility] Start: 02-08-2025 End: 02-08-[address] Teodoro Kim MD Work Phone: [facility] Work Phone: Start: 02-08-2025 End: 02-08-2025 Patient encounter procedure Arun Demiter PA -Laboratory Work Phone: Start: 02-08-2025 End: 02-08-2025 ambulatory Arun Casandraiter Facility:[facility] Start: 01-29-2025 End: 01-29-2025 Patient encounter procedure Arun Demiter PA -[facility] Work Phone: Start: 01-29-2025 End: 01-29-[address] Teodoro Kim MD Work Phone: [facility] Work Phone: Start: 01-04-2025 End: 01-04-2025 Patient encounter procedure Arun PRATHER -[facility] Work Phone: Start: 01-04-2025 End: 01-04-[address] Teodoro Kim MD Work Phone: [facility] Work Phone: Start: 11-21-2024 End: 11-21-[address] Micheal Rueda MD -[facility] Work Phone: Start: 11-21-2024 End: 11-21-2024 ambulatory Teodoro Kim Facility:[facility] Start: 11-19-2024 End: 11-19-[address] Teodoro Kim MD Work Phone: [facility] Work Phone: Start: 11-19-2024 End: 11-19-[address] Teodoro Kim MD -Cardiovascular Services Work Phone: Start: 11-19-2024 End: 11-19-2024 ambulatory Teodoro Kim Facility:[facility] Start: 10-04-2024 End: 10-04-[address] Teodoro Kim MD -Laboratory Work Phone: Start: 10-04-2024 End: 10-04-2024 ambulatory Teodoro Kim Facility:[facility] Start: 11-24-2023 Non-patient / Non-visit Dr. Singh Kim Work Phone: [facility] Start: 11-24-2023 End: 11-24-[address] Teodoro Kim Work Phone: [facility] Work Phone: Start: 11-24-2023 End: 11-24-[address] [facility] Start: 10-10-2023 End: 10-10-2023 ambulatory [facility] Work Phone: Start: 10-10-2023 End: 10-10-2023 [facility] Start: 10-06-2023 End: 10-06-2023 ambulatory [facility] Work Phone: Start: 10-06-2023 End: 10-06-2023 Patient encounter procedure [facility]-Laboratory, Phy Office 3rd Flr Start: 04-05-2023 End: 04-05-2023 ambulatory [facility] Work Phone: Start: 04-05-2023 End: 04-05-2023 Patient encounter procedure [facility]-Laboratory, Phy Office 3rd Flr Start: 02-03-2023 End: 02-04-[address] ALTON KIM MD Facility:[facility] Start: 02-03-2023 End: 02-03-[address] ALTON KIM MD [facility] Start: 01-04-2023 End: 01-04-2023 ambulatory [facility] Start: 04-01-2022 End: 04-01-2022 Patient encounter procedure [facility]-Laboratory Procedures Date Procedure Procedure Detail Performing Clinician Start: 04-10-2025 X-ray of lumbosacral spine Dr. Teodoro Kim MD Work Phone: Start: 04-10-2025 Assay of prostate sp ecific antigen total Dr. Teodoro Kim MD Work Phone: Comment on above: This test was perfor med using the [employer] tPSA method. Measured values of a patient sample can vary depending on the testing procedure used. PSA values determined on patient samples by different testing procedures cannot be used interchangeably. If there is a change in PSA assays while monitoring therapy, sequential testing should be performed to confirm baseline values. Start: 04-10-2025 Prostate specific an tigen measurement Dr. Teodoro Kim MD Work Phone: Comment on above: This test was perfor med using the [employer] tPSA method. Measured values of a patient sample can vary depending on the testing procedure used. PSA values determined on patient samples by different testing procedures cannot be used interchangeably. If there is a change in PSA assays while monitoring therapy, sequential testing should be performed to confirm baseline values. Start: 04-10-2025 Vitamin D, 25-hydrox y measurement Dr. Teodoro Kim MD Work Phone: Comment on above: Vitamin D StatusDefi ciency: <20 ng/mL (50nmol/L)Insufficiency: 20-30 ng/mL (50-75 nmol/L)Sufficiency: 30-100 ng/mL (75-250 nmol/L)Toxicity: >100 ng/mL (>250 nmol/L) Start: 11-21-2024 Evaluation of diagno stic study [...] with ionized calcium - Serum or Plasma [facility] Immunizations Immunization Date Immunization Notes Care Provider Fa cility 11-24-2020 COVID-19, mRNA, LNP- S, PF, 100 mcg or 50 mcg dose; Translations: [Moderna COVID-19 Vaccine] DR ALTON KIM MD [facility] 10-27-2020 COVID-19, mRNA, LNP- S, PF, 100 mcg or 50 mcg dose; Translations: [Moderna COVID-19 Vaccine] DR ALTON KIM MD [facility] 11-08-2018 influenza, injectable,quadrivalent , preservative free, pediatric [facility] 11-08-2018 influenza, injectabl e, quadrivalent, preservative free DR ALTON KIM MD [facility] Payers Date Payer Category Payer Self-pay [id number] 2024 Medicare [id number] 2024 Private Health Insurance [id number] 2023 Private Health Insurance [id number] 1960 Unknown [id number] 2.16.8 [id number] 1960 Unknown [id number] 2.16. [id number] Private Health Insurance [id number] Unknown [id number] 2.16.8 [id number] Unknown [id number] 2.16.8 [id number] Unknown [id number] 2.16.8 [id number] Unknown [id number] 2.16.8 [id number] Unknown [id number] 2.16.8 [id number] Unknown [id number] 2.16.8 [id number] Unknown [id number] 2.16.8 [id number] Unknown [id number] 2.16.8 [id number] Unknown [id number] 2.16.8 [id number] Unknown [id number] 2.16.8 [id number] Social History Date Type Detail Facility Start: 04-04-2019 End: 04-04-2019 Tobacco smoking status NHIS Unknown if ever smoked [facility] Start: 11-13-2018 None [facility] Start: 11-13-2018 Spouse/ Signif icant Other [facility] Start: 04-04-2019 Non-smoker [facility] Start: 1960 Sex Assigned At Male A [facility] Start: 09-27-2018 End: 04-04-2019 Tobacco smoking status Ex-smoker (finding) [facility] Start: 11-22-2024 Sex Male (finding) [facility] Sex Male [facility] Clinical Notes 11-21-2024 to 05-27-2025 Note Date & Type Note Facility 05-27-2025 Discharge summary Note Date/Time May 27, 2025 7:00pm [facility] Physical Therapy [address] [place] [address] / REHABILITATION SERVICES DISCHARGE SUMMARY MR#: [id number] Acct: [id number] Name: FERNANDA MCDONALD Rep #: [id number] : 1960 65 From: Chen Zaman PT, Cert. MDT Referring Dr.: Dr. Teodoro Kim MD Status: REG RCR Insurance: MEDICARE PART A B [employer] Discharge Summary D/C summary: It has been my pleasure to treat FERNANDA MCDONALD referred by Dr. Teodoro Kim MD, with the diagnosis of LOW BACK PAIN for a total of 8 visit(s). Discharge Date: 05/27/25 Please see the following information for a summary of their discharge status. Subjective Subjective: PATIENT REPORTS THAT EVEN ON A BAD DAY HE IS A LOT BETTER THAN HE WAS BEFORE STARTING PT. PATIENT REPORTS THE PAIN IS ABOUT 1/2 WHAT IT WAS. I CAN FUNCTION NOW. HE STATES HE HAS LOST ABOUT 20 LBS SINCE STARTING PT. HE REPORTS THAT BEFORE STARTING PT HE WAS ABOUT TO LET THEM DO SURGERY. PATIENT REPORTS INCREASED BACK PAIN TODAY FOR NO APPARENT REASON OTHER THAN MAYBE OVER-DOING IT WITH HIS HEP. PATIENT REPORTS THEY CHANGED HIS BLOOD PRESSURE MEDICATION AGAIN AND ABOUT A WEEK OR SO AGAIN AND HE THINKS IT IS HELPING. PATIENT REPORTS HE GOT THE MOTOR HOME OUT OF STORAGE, WINTERIZED IT AND TOOK IT BACK WHICH IS A MULTI-HOUR PROJECT WHICH IS SOMETHING HE COULDN'T HAVE DONE BEFORE. HE STATES HE WAS ABLE TO GO UP AND DOWN THE STEPS IN/OUT OF THE MOTOR HOME SO MUCH EASIER AND NOW THEY ARE CONSIDERING NOT SELLING IT. Pain LOW BACK: Pain Intensity (Out of 10): 5 L HIP: Pain Intensity (Out of 10): 0 Overall Improvement % Improvement: 50 Objective Objective/Function: PATIENT WAS SEEN TODAY FOR RE-ASSESSMENT OF PROGRESS TOWARD THE SET PT GOALS AND THE NEED FOR FURTHER PHYSICAL THERAPY VS READINESS FOR DISCHARGE. UPON EXAM TODAY: PATIENT IS INDEP WITH AN APPROPRIATE HEP. PATIENTAND THIS PT ANTICIPATE CONTINUED IMPROVEMENT WITH TIME AND EXERCISE. Goals Goal 1:: DECREASE C/O LOW BACK PAIN BY AT LEAST 50% TO EASE ADL'S. Goal Progress: Goal Met Goal 2:: PATIENT WILL BE ABLE TO WALK FOR AT LEAST 10 MINUTES WITHOUT AD AND WITHOUT AGGREVATION OF SYMPTOMS >2/10 IN ORDER TO PERFORM ADL'S AND IADL'S. Goal Progress: Progressing Goal 3:: PATIENT WILL COMPLETE 10 STANDS IN 30 SECS WITHOUT UE ASSIST TO DEMONSTRATE IMPROVED FUNCTIONAL STRENGTH Goal Progress: Progressing Goal 4:: PATIENT WILL BE ABLE TO NEGOTIATE STEPS WITH 1 HR WITH RECIPROCAL PATTERN WITHOUT LIMITATIONS. Goal Progress: Goal Met Goal 5:: PATIENT WILL BE INDEP WITH APPROPRIATE STRENGTHENING EX'S TO ASSIST WITH STABILIZATION AND MOVEMENT OF THE SPINE TO HELP NORMALIZE GAIT. Goal Progress: Goal Met Goal 6:: PATIENT WILL BE INDEP WITH APPROPRIATE STRETCHING EX'S TO DECREASE STRESS ON THE SPINE AND HELP NORMALIZE GAIT. Goal Progress: Goal Met Plan Plan: D/C TO INDEP EX. PATIENT IS AGREEABLE. D/C Information d/c sentence: If there are questions or concerns regarding this patient's physical therapy, please feel free to call me at [phone]. Thank you for the referral of thispatient. Sincerely, Chen Zaman PT, Cert MDT Balance/Gait/Functional tests Balance/Special Test Scores Oswestry Low Back Score: 20 Improvement % Improvement: 50 <Electronically signed by Cert. ALEX Thurston PTT> 05/27/25 [id number] CC: Dr. Teodoro Kim MD ~ NURIS Signed [facility] Work Phone: 1(365) 833-138310-06-2025 Discharge summary [facility] Physical Therapy [facility] [address] [place] [address]. [address] [place] [address] / REHABILITATION SERVICES DISCHARGE SUMMARY MR#: [id number] Acct: [id number] Name: FERNANDA MCDONALD Rep #: [id number] : 1960 65 From: Matt Thurston PT. T Referring Dr.: Dr. Teodoro Kim MD Status: REG RCR Insurance: MEDICARE PART A B [employer] Discharge Summary D/C summary: It has been my pleasure to treat FERNANDA MCDONALD referred by Dr. Teodoro Kim MD, with the diagnosis of LOW BACK PAIN for a total of 8 visit(s). Discharge Date: 05/27/25 Please see the following information for a summary of their discharge status. Subjective Subjective: PATIENT REPORTS THAT EVEN ON A BAD DAY HE IS A LOT BETTER THAN HE WAS BEFORE STARTING PT. PATIENT REPORTS THE PAIN IS ABOUT 1/2 WHAT IT WAS. I CAN FUNCTION NOW. HE STATES HE HAS LOST ABOUT 20 LBS SINCE STARTING PT. HE REPORTS THAT BEFORE STARTING PT HE WAS ABOUT TO LET THEM DO SURGERY. PATIENT REPORTS INCREASED BACK PAIN TODAY FOR NO APPARENT REASON OTHER THAN MAYBE OVER-DOING IT WITH HIS HEP. PATIENT REPORTS THEY CHANGED HIS BLOOD PRESSURE MEDICATION AGAIN AND ABOUT A WEEK OR SO AGAIN AND HE THINKS IT IS HELPING. PATIENT REPORTS HE GOT THE MOTOR HOME OUT OF STORAGE, WINTERIZED IT AND TOOK IT BACK WHICH IS A MULTI-HOUR PROJECT WHICH IS SOMETHING HE COULDN'T HAVE DONE BEFORE. HE STATES HE WAS ABLE TO GO UP AND DOWN THE STEPS IN/OUT OF THE MOTOR HOME SO MUCH EASIER AND NOW THEY ARE CONSIDERING NOT SELLING IT. Pain LOW BACK: Pain Intensity (Out of 10): 5 L HIP: Pain Intensity (Out of 10): 0 Overall Improvement % Improvement: 50 Objective Objective/Function: PATIENT WAS SEEN TODAY FOR RE-ASSESSMENT OF PROGRESS TOWARD THE SET PT GOALS AND THE NEED FOR FURTHER PHYSICAL THERAPY VS READINESS FOR DISCHARGE. UPON EXAM TODAY: PATIENT IS INDEP WITH AN APPROPRIATE HEP. PATIENTAND THIS PT ANTICIPATE CONTINUED IMPROVEMENT WITH TIME AND EXERCISE. Goals Goal 1:: DECREASE C/O LOW BACK PAIN BY AT LEAST 50% TO EASE ADL'S. Goal Progress: Goal Met Goal 2:: PATIENT WILL BE ABLE TO WALK FOR AT LEAST 10 MINUTES WITHOUT AD AND WITHOUT AGGREVATION OFSYMPTOMS >2/10 IN ORDER TO PERFORM ADL'S AND IADL'S. Goal Progress: Progressing Goal 3:: PATIENT WILL COMPLETE 10 STANDS IN 30 SECS WITHOUT UE ASSIST TO DEMONSTRATE IMPROVED FUNCTIONAL STRENGTH Goal Progress: Progressing Goal 4:: PATIENT WILL BE ABLE TO NEGOTIATE STEPS WITH 1 HR WITH RECIPROCAL PATTERN WITHOUT LIMITATIONS. Goal Progress: Goal Met Goal 5:: PATIENT WILL BE INDEP WITH APPROPRIATE STRENGTHENING EX'S TO ASSIST WITH STABILIZATION ANDMOVEMENT OF THE SPINE TO HELP NORMALIZE GAIT. Goal Progress: Goal Met Goal 6:: PATIENT WILL BE INDEP WITH APPROPRIATE STRETCHING EX'S TO DECREASE STRESS ON THE SPINE ANDHELP NORMALIZE GAIT. Goal Progress: Goal Met Plan Plan: D/C TO INDEP EX. PATIENT IS AGREEABLE. D/C Information d/c sentence: If there are questions or concerns regarding this patient's physical therapy, please feel free to call me at [phone]. Thank you for the referral of thispatient. Sincerely, Chen Zaman, PT, Cert MDT Balance/Gait/Functional tests Balance/Special Test Scores Oswestry Low Back Score: 20 Improvement % Improvement: 50 05/27/25 [id number] CC: Dr. Teodoro Kim MD ~ NURIS Signed [facility]08-21-2025 Radiology Diagnostic study note [facility] Imaging Services [address] [place], [place] [address] L/S Spine Min 4 Views MR#: [id number] Acct: [id number] Name: FERNANDA MCDONALD Rep #: [id number] : 1960 M 65 From: Ramesh Black MD PCP: Dr. Teodoro Kim MD Status: REG Farhana BRODERICK Study:L/S Spine Min 4 Views Date of Exam: 04/10/25 Exam# [id number] Ordering Dr: Teodoro Kim MD PROCEDURE: L/S SPINE MIN 4 VIEWS 04/10/2025 REASON FOR EXAM: LOW BACK PAIN TECHNIQUE: L/S SPINE MIN 4 VIEWS COMPARISON: None FINDINGS: There is levocurvature of the lower lumbar region with less than 10 degrees of variance, which can indicate spasm. There is loss of disc height at each level. There is moderate facet sclerosis. Vertebral body height is maintained. There is no visible fracture. Mineralization is normal. There is visible atherosclerosis. RAD/L/S Spine Min 4 Views IMPRESSION: There is levocurvature of the lower lumbar region with less than 10 degrees of variance, which can indicate spasm. There is loss of disc height at each level. Reading Location: [facility] CC: Dr. Teodoro Kim MD ~ Enrollment Processor: Signed [facility]06-10-2025 Evaluation note* Diagnosis Onset Date Resolution Status Admit Date Essential (primary) hypertension acute January 29, 2025 8:40am Syncope resolved January 29 8:40am Essential (primary) hypertension acute March 04, 2025 10:12am [facility] Work Phone: 1(146) 665-905605-16-2025 Evaluation note* Diagnosis Onset Date Resolution Status Admit Date Essential (primary) hypertension acute January 04, 2025 8 :41am Palpitation acute January 04 8:41am Syncope resolved January 04, 2025 8:41am Essential (primary) hypertension acute January 29, 2025 8:40am Syncope resolved January 29 8:40am Essential (primary) hypertension acute March 04, 2025 10:12am [facility] Work Phone: 1(870) 592-919304-02-2025 Evaluation note* Diagnosis Onset Date Resolution Status Admit Date Essential (primary) hypertension acu te November 21, 2024 10:01am Syncope acute November 21 10:01am [facility] Work Phone: 1(234) 890-893704-02-2025 Evaluation note* Diagnosis Onset Date Resolution Status Admit Date Essential (primary) hypertension acu te November 21, 2024 10:01am Syncope acute November 21 10:01am Essential (primary) hypertension acu te January 04, 2025 8:41am Syncope acute January 04, 2025 8:41am [facility] Work Phone: 1(554) 586-762304-02-2025 Evaluation note* Diagnosis Onset Date Resolution Status Admit Date Essential (primary) hypertension acu te November 21, 2024 10:01am Syncope acute November 21 10:01am Essential (primary) hypertension acu te January 04, 2025 8:41am Palpitation acute January 04 8:41am Syncope acute January 04, 2025 8:41am Essential (primary) hypertension acu te January 29, 2025 8:40am Palpitation acute January 29 8:40am Syncope acute January 29 8:40am [facility] Work Phone: 1(138) 426-143204-02-2025 Evaluation note* Diagnosis Onset Date Resolution Status Admit Date Essential (primary) hypertension acute November 21, 2024 10:01am Syncope resolved November 21 10:01am Essential (primary) hypertension acute January 04, 2025 8 :41am Palpitation acute January 04 8:41am Syncope resolved January 04, 2025 8:41am Essential (primary) hypertension acute January 29, 2025 8:40am Syncope resolved January 29 8:40am [facility] Work Phone: 1(449) 699-254704-02-2025 Evaluation note* Diagnosis Onset Date Resolution Status Admit Date Essential (primary) hypertension acute November 21, 2024 10:01am Syncope resolved November 21 10:01am Essential (primary) hypertension acute January 04, 2025 8 :41am Palpitation acute January 04 8:41am Syncope resolved January 04, 2025 8:41am Essential (primary) hypertension acute January 29, 2025 8:40am Syncope resolved January 29 8:40am Essential (primary) hypertension acute March 04, 2025 10:12am [facility] Work Phone: Evaluation + Plan note No data available for this section [facility] Evaluation noteNo assessment information available [facility] Work Phone: Hospital Discharge instructions No data available for this section [facility] Progress note No data available for this section [facility] Reason for referral (narrative)No reason for referral information available[facility] Work Phone: Chief Complaint and Reason for [...] am Syncope January 29, 2025 8:40 am Chief Complaint Admit Date SYNCOPE November 19, 2024 10: 27am SYNCOPE AND COLLAPSE November 19, 2024 10 :35am Syncope (Julio) November 21, 2024 10:0 1am 6 W FU January 04, 2025 8:41a m 4 W FU January 29, 2025 8:40 am EORDERS February 08, 2025 10:5 2am Reason for Visit Admit Date Essential (primary) hypertension November 212024 10:01am Syncope November 21, 2024 10:0 1am Essential (primary) hypertension December 8:41am Palpitation January 04, 2025 8:41a m Syncope January 04, 2025 8:41a m Essential (primary) hypertension January 292024 8:40am Syncope January 29, 2025 8:40 am Chief Complaint Admit Date SYNCOPE November 19, 2024 10: 27am SYNCOPE AND COLLAPSE November 19, 2024 10 :35am Syncope (Julio) November 21, 2024 10:0 1am 6 W FU January 04, 2025 8:41a m 4 W FU January 29, 2025 8:40 am EORDERS February 08, 2025 10:5 2am 6 WK FU March 04, 2025 10:1 2am Reason for Visit Admit Date Essential (primary) hypertension November 212024 10:01am Syncope November 21, 2024 10:0 1am Essential (primary) hypertension December 8:41am Palpitation January 04, 2025 8:41a m Syncope January 04, 2025 8:41a m Essential (primary) hypertension January 292024 8:40am Syncope January 29, 2025 8:40 am Essential (primary) hypertension March 042024 10:12am Chief Complaint Admit Date 6 W FU January 04, 2025 8:41a m 4 W FU January 29, 2025 8:40 am EORDERS February 08, 2025 10:5 2am 6 WK FU March 04, 2025 10:1 2am Reason for Visit Admit Date Essential (primary) hypertension December 8:41am Palpitation January 04, 2025 8:41a m Syncope January 04, 2025 8:41a m Essential (primary) hypertension January 292024 8:40am Syncope January 29, 2025 8:40 am Essential (primary) hypertension March 042024 10:12am Chief Complaint Admit Date 4 W FU January 29, 2025 8:40 am EORDERS February 08, 2025 10:5 2am 6 WK FU March 04, 2025 10:1 2am LBP RX HERE May 27, 2025 1: 30pm Reason for Visit Admit Date Essential (primary) hypertension January 292024 8:40am Syncope January 29, 2025 8:40 am Essential (primary) hypertension March 042024 10:12am Family History No Family History Records Found [...] Date/ Time Living Will No April 11 3:33pm Power of Academic Assistant Yes April 11 019 3:33pm Advance Directive Response Recorded Date/ Time Living Will No April 11 2:33pm Power of Academic Assistant Yes April 11 019 2:33pm Summary Purpose [...] section and content) DATE CREATED AUTHOR 01/05/2023 [facility] DATE CREATED AUTHOR AUTHOR'S ORGANIZ ATION 02/09/2023 [facility] [place] [facility] ([place]) DATE CREATED AUTHOR AUTHOR'S ORGANIZ ATION 05/30/2025 [facility] Patient Care team informatio n (unrecognized [...] January 29, 2025 End: January 29, 2025 Team Status: Inactive Member Role Status Dates Dr. Teodoro Kim MD Primary Care Provider Active Start: February 08, 2025 End: February 08, 2025 CRESCENCIO Sanders Attending Provider Active St art: February 08, 2025 End: February 08, 2025 CRESCENCIO Sanders Referring Provider Active St art: February 08, 2025 End: February 08, 2025 Team Status: Active Member Role/Relationship Status Dates Dr. Teodoro Kim MD Primary Care Provider Active Team Status: Inactive Member Role/Relationship Status Dates Dr. Teodoro Kim MD Primary Care Provider Active Start: November 19, 2024 End: November 19, 2024 Dr. Teodoro Kim MD Attending Provider Active Start: November 19, 2024 End: November 19, 2024 Dr. Teodoro Kim MD Referring Provider Active Start: November 19, 2024 End: November 19, 2024 Team Status: Active Member Role/Relationship Status Dates Dr. Steven Biggs MD Attending Provider Active Start: November 19, 2024 Dr. Teodoro Kim MD Referring Provider Active Start: November 19, 2024 Team Status: Inactive Member Role/Relationship Status Dates Dr. Teodoro Kim MD Primary Care Provider Active Start: November 21, 2024 End: November 21, 2024 Dr. Teodoro Kim MD Referring Provider Active Start: November 21, 2024 End: November 21, 2024 Dr. Micheal Rueda MD Attending Provider Active S tart: November 21, 2024 End: November 21, 2024 Team Status: Inactive Member Role/Relationship Status Dates Dr. Teodoro Kim MD Primary Care Provider Active Start: January 04, 2025 End: January 04, 2025 Dr. Teodoro Kim MD Referring Provider Active Start: January 04, 2025 End: January 04, 2025 CRESCENCIO Sanders Attending Provider Active St art: January 04, 2025 End: January 04, 2025 Team Status: Inactive Member Role/Relationship Status Dates Dr. Teodoro Kim MD Primary Care Provider Active Start: January 29, 2025 End: January 29, 2025 Dr. Teodoro Kim MD Referring Provider Active Start: January 29, 2025 End: January 29, 2025 CRESCENCIO Sanders Attending Provider Active St art: January 29, 2025 End: January 29, 2025 Team Status: Inactive Member Role/Relationship Status Dates Dr. Teodoro Kim MD Primary Care Provider Active Start: February 08, 2025 End: February 08, 2025 CRESCENCIO Sanders Attending Provider Active St art: February 08, 2025 End: February 08, 2025 CRESCENCIO Sanders Referring Provider Active St art: February 08, 2025 End: February 08, 2025 Team Status: Inactive Member Role/Relationship Status Dates Dr. Teodoro Kim MD Primary Care Provider Active Start: March 04, 2025 End: March 04, 2025 Dr. Teodoro Kim MD Referring Provider Active Start: March 04, 2025 End: March 04, 2025 CRESCENCIO Sanders Attending Provider Active St art: March 04, 2025 End: March 04, 2025 Team Status: Inactive Member Role/Relationship Status Dates Dr. Teodoro Kim MD Primary Care Provider Active Start: January 04, 2025 End: January 04, 2025 Dr. Teodoro Kim MD Referring Provider Active Start: January 04, 2025 End: January 04, 2025 CRESCENCIO Sanders Attending Provider Active St art: January 04, 2025 End: January 04, 2025 Team Status: Inactive Member Role/Relationship Status Dates Dr. Teodoro Kim MD Primary Care Provider Active Start: January 29, 2025 End: January 29, 2025 Dr. Teodoro Kim MD Referring Provider Active Start: January 29, 2025 End: January 29, 2025 CRESCENCIO Sanders Attending Provider Active St art: January 29, 2025 End: January 29, 2025 Team Status: Inactive Member Role/Relationship Status Dates Dr. Teodoro Kim MD Primary Care Provider Active Start: February 08, 2025 End: February 08, 2025 CRESCENCIO Sanders Attending Provider Active St art: February 08, 2025 End: February 08, 2025 CRESCENCIO Sanders Referring Provider Active St art: February 08, 2025 End: February 08, 2025 Team Status: Inactive Member Role/Relationship Status Dates Dr. Teodoro Kim MD Primary Care Provider Active Start: March 04, 2025 End: March 04, 2025 Dr. Teodoro Kim MD Referring Provider Active Start: March 04, 2025 End: March 04, 2025 CRESCENCIO Sanders Attending Provider Active St art: March 04, 2025 End: March 04, 2025 Team Status: Inactive Member Role/Relationship Status Dates Dr. Teodoro Kim MD Primary Care Provider Active Start: April 10, 2025 End: April 10, 2025 Dr. Teodoro Kim MD Attending Provider Active Start: April 10, 2025 End: April 10, 2025 Dr. Teodoro Kim MD Referring Provider Active Start: April 10, 2025 End: April 10, 2025 Team Status: Active Member Role/Relationship Status Dates Dr. Teodoro Kim MD Primary care physician Active Team Status: Inactive Member Role/Relationship Status Dates Dr. Teodoro Kim MD Primary care physician Active Start: January 29, 2025 End: January 29, 2025 Dr. Teodoro Kim MD Referring Provider Active Start: January 29, 2025 End: January 29, 2025 CRESCENCIO Sanders Attending physician Active S tart: January 29, 2025 End: January 29, 2025 Team Status: Inactive Member Role/Relationship Status Dates Dr. Teodoro Kim MD Primary care physician Active Start: February 08, 2025 End: February 08, 2025 CRESCENCIO Sanders Attending physician Active S tart: February 08, 2025 End: February 08, 2025 CRESCENCIO Sanders Referring Provider Active St art: February 08, 2025 End: February 08, 2025 Team Status: Inactive Member Role/Relationship Status Dates Dr. Teodoro Kim MD Primary care physician Active Start: March 04, 2025 End: March 04, 2025 Dr. Teodoro Kim MD Referring Provider Active Start: March 04, 2025 End: March 04, 2025 CRESCENCIO Sanders Attending physician Active S tart: March 04, 2025 End: March 04, 2025 Team Status: Inactive Member Role/Relationship Status Dates Dr. Teodoro Kim MD Primary care physician Active Start: April 10, 2025 End: April 10, 2025 Dr. Teodoro Kim MD Attending physician Active Start: April 10, 2025 End: April 10, 2025 Dr. Teodoro Kim MD Referring Provider Active Start: April 10, 2025 End: April 10, 2025 Team Status: Inactive Member Role/Relationship Status Dates Dr. Teodoro Kim MD Primary care physician Active Start: May 27, 2025 End: May 27, 2025 Dr. Teodoro Kim MD Attending physician Active Start: May 27, 2025 End: May 27, 2025 Dr. Teodoro Kim MD Referring Provider Active Start: May 27, 2025 End: May 27, 2025 FOR RECORDS PERTAINING TO PATIENTS WHO [...] BE BASED ON THE PRIMARY CLINICAL RECORDS. [employer] [facility] provides no warranty or guarantee of the accuracy or completeness of information in this document.
== END | disposition home or self-care (01) ==
LOC: PSN 08:42
PROVIDERS: PCP Family Medicine Geriatric Medicine; Referring Provider Student in an Organized Health Care Education/Training Program; Visit Provider Student in an Organized Health Care Education/Training Program
DX: R00.2 Palpitations (principal); R00.1 Bradycardia, unspecified; R42 Dizziness and giddiness
CPT/HCPCS: 93225; 93226